=== PATIENT | female | born 1975 | race Caucasian/White ===

== ENCOUNTER 2022-06-18 12:33 | Inpatient (IN) | payer OTHER ==
[2022-06-18 13:44] LABS: Urine Blood 2+ (Negative); Urine Glucose Negative (Negative); Urine Protein Negative (Negative); Urine Specific Gravity 1.015 (1.005-1.030)
--- OUTSIDE RECORDS SUMMARY | 2022-06-18 14:01 | XMS REPORT | Continuity of Care Document ---
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 (test code = 3.37 x10 6/uL 3.54-5.02 L RBC) HEMOGLOBIN (test code = HGB) 9.7 g/dL 11.0-15.0 L HEMATOCRIT (test code = HCT) 31.0 % 33.0-45.0 L MEAN CELL VOLUME (test code = 92.0 fL 81.0-99.0 N MCV) MEAN CELL HGB (test code = MCH) 28.8 pg 27.0-33.0 N MEAN CELL HGB CONCETRATION 31.3 g/dL 33.0-37.0 L (test code = MCHC) RED CELL DISTRIBUTION WIDTH CV 16.9 % 11.5-14.5 H (test code = RDW) RED CELL DISTRIBUTION WIDTH SD 56.8 fL 37.0-54.0 H (test code = RDW-SD) PLATELET COUNT (test code = 205 x10 3/uL 150-400 N PLT) MEAN PLATELET VOLUME (test code 9.0 fL 7.0-9.0 N = MPV) NEUTROPHIL % (test code = NT%) 59.9 % 56.0-77.0 N IMMATURE GRANULOCYTE % (test 0.5 % 0.0-2.0 N code = IG%) LYMPHOCYTE % (test code = LY%) 33.6 % 14.0-32.0 H MONOCYTE % (test code = MO%) 5.7 % 4.8-9.0 N EOSINOPHIL % (test code = EO%) 0.3 % 0.3-3.7 N BASOPHIL % (test code = BA%) 0.0 % 0.0-2.0 N NUCLEATED RBC % (test code = 0.0 % 0-0 N NRBC%) NEUTROPHIL # (test code = NT#) 2.32 x10 3/uL 2.0-7.6 N IMMATURE GRANULOCYTE # (test 0.02 x10 3/uL 0.00-0.03 N code = IG#) LYMPHOCYTE # (test code = LY#) 1.30 x10 3/uL 1.0-3.8 N MONOCYTE # (test code = MO#) 0.22 x10 3/uL 0.1-0.8 N EOSINOPHIL # (test code = EO#) 0.01 x10 3/uL 0.0-0.2 N BASOPHIL # (test code = BA#) 0.00 x10 3/uL 0.0-0.2 N NUCLEATED RBC # (test code = 0.00 x10 3/uL 0.0-0.1 N NRBC#) MANUAL DIFF REQUIRED (test code NO = MDIFF) BASIC METABOLIC [id number] 07:32:00 Test Item Value Reference Range Interpretation Comments SODIUM (test code = NA) 129 mEq/L 134-147 L POTASSIUM (test code = 4.6 mEq/L 3.4-5.0 N K) CHLORIDE (test code = 98 mEq/L 100-108 L CL) CARBON DIOXIDE (test 24 mEq/L 21-33 N code = CO2) ANION GAP (test code = 12 0-20 N GAP) GLUCOSE (test code = 127 mg/dL 70-110 H GLU) BLOOD UREA NITROGEN 13 mg/dL 7-18 (test code = BUN) GLOMERULAR FILTRATION 92.2 95-105 L Units of measure = RATE (test code = GFR) ml/mi n/1.73 m2 CREATININE (test code = 0.7 mg/dL 0.6-1.3 N CREAT) CALCIUM (test code = 8.4 mg/dL 8.0-10.5 N CA) CBC W/AUTO [id number] 07:10:00 Test Item Value Reference Range Interpretation Comments WHITE BLOOD CELL (test code = 4.15 x10 3/uL 4.5-11.0 L WBC) RED BLOOD CELL (test code = 3.22 x10 6/uL 3.54-5.02 L RBC) HEMOGLOBIN (test code = HGB) 9.3 g/dL 11.0-15.0 L HEMATOCRIT (test code = HCT) 30.0 % 33.0-45.0 L MEAN CELL VOLUME (test code = 93.2 fL 81.0-99.0 N MCV) MEAN CELL HGB (test code = MCH) 28.9 pg 27.0-33.0 N MEAN CELL HGB CONCETRATION 31.0 g/dL 33.0-37.0 L (test code = MCHC) RED CELL DISTRIBUTION WIDTH CV 17.0 % 11.5-14.5 H (test code = RDW) RED CELL DISTRIBUTION WIDTH SD 58.3 fL 37.0-54.0 H (test code = RDW-SD) PLATELET COUNT (test code = 219 x10 3/uL 150-400 N PLT) MEAN PLATELET VOLUME (test code 8.9 fL 7.0-9.0 N = MPV) NEUTROPHIL % (test code = NT%) 56.5 % 56.0-77.0 N IMMATURE GRANULOCYTE % (test 0.5 % 0.0-2.0 N code = IG%) LYMPHOCYTE % (test code = LY%) 36.6 % 14.0-32.0 H MONOCYTE % (test code = MO%) 6.0 % 4.8-9.0 N EOSINOPHIL % (test code = EO%) 0.2 % 0.3-3.7 L BASOPHIL % (test code = BA%) 0.2 % 0.0-2.0 N NUCLEATED RBC % (test code = 0.0 % 0-0 N NRBC%) NEUTROPHIL # (test code = NT#) 2.34 x10 3/uL 2.0-7.6 N IMMATURE GRANULOCYTE # (test 0.02 x10 3/uL 0.00-0.03 N code = IG#) LYMPHOCYTE # (test code = LY#) 1.52 x10 3/uL 1.0-3.8 N MONOCYTE # (test code = MO#) 0.25 x10 3/uL 0.1-0.8 N EOSINOPHIL # (test code = EO#) 0.01 x10 3/uL 0.0-0.2 N BASOPHIL # (test code = BA#) 0.01 x10 3/uL 0.0-0.2 N NUCLEATED RBC # (test code = 0.00 x10 3/uL 0.0-0.1 N NRBC#) MANUAL DIFF REQUIRED (test code NO = MDIFF) VITAMIN [id number] 04:09:00 Test Item Value Reference Range Interpretation Comments VITAMIN 18.7 ug/L 2.0-32.8 This test was d eveloped and its B6/PYRIDOXINE performance (test code = characteristics determined by VITB6) [facility]. It has not been cleared orappro jackelyn by the Food and Drug Administration. Performed At: [facility] [place], [place] [id number] ra Leena PLASENCIA Ph:[phone] CBC W/AUTO [id number] 08:04:00 Test Item Value Reference Range Interpretation Comments WHITE BLOOD CELL (test code = 4.58 x10 3/uL 4.5-11.0 N WBC) RED BLOOD CELL (test code = 3.50 x10 6/uL 3.54-5.02 L RBC) HEMOGLOBIN (test code = HGB) 10.2 g/dL 11.0-15.0 L HEMATOCRIT (test code = HCT) 32.2 % 33.0-45.0 L MEAN CELL VOLUME (test code = 92.0 fL 81.0-99.0 N MCV) MEAN CELL HGB (test code = MCH) 29.1 pg 27.0-33.0 N MEAN CELL HGB CONCETRATION 31.7 g/dL 33.0-37.0 L (test code = MCHC) RED CELL DISTRIBUTION WIDTH CV 17.1 % 11.5-14.5 H (test code = RDW) RED CELL DISTRIBUTION WIDTH SD 57.3 fL 37.0-54.0 H (test code = RDW-SD) PLATELET COUNT (test code = 258 x10 3/uL 150-400 N PLT) MEAN PLATELET VOLUME (test code 8.8 fL 7.0-9.0 N = MPV) NEUTROPHIL % (test code = NT%) 56.9 % 56.0-77.0 N IMMATURE GRANULOCYTE % (test 0.4 % 0.0-2.0 N code = IG%) LYMPHOCYTE % (test code = LY%) 35.8 % 14.0-32.0 H MONOCYTE % (test code = MO%) 6.3 % 4.8-9.0 N EOSINOPHIL % (test code = EO%) 0.2 % 0.3-3.7 L BASOPHIL % (test code = BA%) 0.4 % 0.0-2.0 N NUCLEATED RBC % (test code = 0.0 % 0-0 N NRBC%) NEUTROPHIL # (test code = NT#) 2.60 x10 3/uL 2.0-7.6 N IMMATURE GRANULOCYTE # (test 0.02 x10 3/uL 0.00-0.03 N code = IG#) LYMPHOCYTE # (test code = LY#) 1.64 x10 3/uL 1.0-3.8 N MONOCYTE # (test code = MO#) 0.29 x10 3/uL 0.1-0.8 N EOSINOPHIL # (test code = EO#) 0.01 x10 3/uL 0.0-0.2 N BASOPHIL # (test code = BA#) 0.02 x10 3/uL 0.0-0.2 N NUCLEATED RBC # (test code = 0.00 x10 3/uL 0.0-0.1 N NRBC#) MANUAL DIFF REQUIRED (test code NO = MDIFF) BASIC METABOLIC [id number] 07:54:00 Test Item Value Reference Range Interpretation Comments SODIUM (test code = NA) 131 mEq/L 134-147 L POTASSIUM (test code = 4.6 mEq/L 3.4-5.0 N K) CHLORIDE (test code = 97 mEq/L 100-108 L CL) CARBON DIOXIDE (test 28 mEq/L 21-33 N code = CO2) ANION GAP (test code = 11 0-20 N GAP) GLUCOSE (test code = 118 mg/dL 70-110 H GLU) BLOOD UREA NITROGEN 7 mg/dL 7-18 N (test code = BUN) GLOMERULAR FILTRATION 110.2 95-105 H Units of measure = RATE (test code = GFR) ml/mi n/1.73 m2 CREATININE (test code = 0.6 mg/dL 0.6-1.3 N CREAT) CALCIUM (test code = 8.8 mg/dL 8.0-10.5 N CA) CBC W/AUTO [id number] 08:06:00 Test Item Value Reference Range Interpretation Comments WHITE BLOOD CELL (test code = 5.23 x10 3/uL 4.5-11.0 N WBC) RED BLOOD CELL (test code = 3.57 x10 6/uL 3.54-5.02 N RBC) HEMOGLOBIN (test code = HGB) 10.3 g/dL 11.0-15.0 L HEMATOCRIT (test code = HCT) 32.8 % 33.0-45.0 L MEAN CELL VOLUME (test code = 91.9 fL 81.0-99.0 N MCV) MEAN CELL HGB (test code = MCH) 28.9 pg 27.0-33.0 N MEAN CELL HGB CONCETRATION 31.4 g/dL 33.0-37.0 L (test code = MCHC) RED CELL DISTRIBUTION WIDTH CV 17.1 % 11.5-14.5 H (test code = RDW) RED CELL DISTRIBUTION WIDTH SD 57.9 fL 37.0-54.0 H (test code = RDW-SD) PLATELET COUNT (test code = 251 x10 3/uL 150-400 N PLT) MEAN PLATELET VOLUME (test code 9.2 fL 7.0-9.0 H = MPV) NEUTROPHIL % (test code = NT%) 54.9 % 56.0-77.0 L IMMATURE GRANULOCYTE % (test 0.2 % 0.0-2.0 N code = IG%) LYMPHOCYTE % (test code = LY%) 36.5 % 14.0-32.0 H MONOCYTE % (test code = MO%) 8.0 % 4.8-9.0 N EOSINOPHIL % (test code = EO%) 0.0 % 0.3-3.7 L BASOPHIL % (test code = BA%) 0.4 % 0.0-2.0 N NUCLEATED RBC % (test code = 0.0 % 0-0 N NRBC%) NEUTROPHIL # (test code = NT#) 2.87 x10 3/uL 2.0-7.6 N IMMATURE GRANULOCYTE # (test 0.01 x10 3/uL 0.00-0.03 N code = IG#) LYMPHOCYTE # (test code = LY#) 1.91 x10 3/uL 1.0-3.8 N MONOCYTE # (test code = MO#) 0.42 x10 3/uL 0.1-0.8 N EOSINOPHIL # (test code = EO#) 0.00 x10 3/uL 0.0-0.2 N BASOPHIL # (test code = BA#) 0.02 x10 3/uL 0.0-0.2 N NUCLEATED RBC # (test code = 0.00 x10 3/uL 0.0-0.1 N NRBC#) MANUAL DIFF REQUIRED (test code NO = MDIFF) BASIC METABOLIC [id number] 07:57:00 Test Item Value Reference Range Interpretation Comments SODIUM (test code = NA) 129 mEq/L 134-147 L POTASSIUM (test code = 4.9 mEq/L 3.4-5.0 N K) CHLORIDE (test code = 95 mEq/L 100-108 L CL) CARBON DIOXIDE (test 27 mEq/L 21-33 N code = CO2) ANION GAP (test code = 12 0-20 N GAP) GLUCOSE (test code = 117 mg/dL 70-110 H GLU) BLOOD UREA NITROGEN 7 mg/dL 7-18 (test code = BUN) GLOMERULAR FILTRATION 110.2 95-105 H Units of measure = RATE (test code = GFR) ml/mi n/1.73 m2 CREATININE (test code = 0.6 mg/dL 0.6-1.3 N CREAT) CALCIUM (test code = 8.9 mg/dL 8.0-10.5 N CA) CBC W/AUTO [id number] 09:46:00 Test Item Value Reference Range Interpretation Comments WHITE BLOOD CELL (test code = 4.26 x10 3/uL 4.5-11.0 L WBC) RED BLOOD CELL (test code = 3.59 x10 6/uL 3.54-5.02 N RBC) HEMOGLOBIN (test code = HGB) 10.4 g/dL 11.0-15.0 L HEMATOCRIT (test code = HCT) 33.0 % 33.0-45.0 N MEAN CELL VOLUME (test code = 91.9 fL 81.0-99.0 N MCV) MEAN CELL HGB (test code = MCH) 29.0 pg 27.0-33.0 N MEAN CELL HGB CONCETRATION 31.5 g/dL 33.0-37.0 L (test code = MCHC) RED CELL DISTRIBUTION WIDTH CV 17.2 % 11.5-14.5 H (test code = RDW) RED CELL DISTRIBUTION WIDTH SD 58.4 fL 37.0-54.0 H (test code = RDW-SD) PLATELET COUNT (test code = 222 x10 3/uL 150-400 N PLT) MEAN PLATELET VOLUME (test code 8.9 fL 7.0-9.0 N = MPV) NEUTROPHIL % (test code = NT%) 47.0 % 56.0-77.0 L IMMATURE GRANULOCYTE % (test 0.9 % 0.0-2.0 N code = IG%) LYMPHOCYTE % (test code = LY%) 38.3 % 14.0-32.0 H MONOCYTE % (test code = MO%) 11.7 % 4.8-9.0 H EOSINOPHIL % (test code = EO%) 1.6 % 0.3-3.7 N BASOPHIL % (test code = BA%) 0.5 % 0.0-2.0 N NUCLEATED RBC % (test code = 0.0 % 0-0 N NRBC%) NEUTROPHIL # (test code = NT#) 2.00 x10 3/uL 2.0-7.6 N IMMATURE GRANULOCYTE # (test 0.04 x10 3/uL 0.00-0.03 H code = IG#) LYMPHOCYTE # (test code = LY#) 1.63 x10 3/uL 1.0-3.8 N MONOCYTE # (test code = MO#) 0.50 x10 3/uL 0.1-0.8 N EOSINOPHIL # (test code = EO#) 0.07 x10 3/uL 0.0-0.2 N BASOPHIL # (test code = BA#) 0.02 x10 3/uL 0.0-0.2 N NUCLEATED RBC # (test code = 0.00 x10 3/uL 0.0-0.1 N NRBC#) MANUAL DIFF REQUIRED (test code NO = MDIFF) BASIC METABOLIC [id number] 08:25:00 Test Item Value Reference Range Interpretation Comments SODIUM (test code = NA) 127 mEq/L 134-147 L POTASSIUM (test code = 4.2 mEq/L 3.4-5.0 N K) CHLORIDE (test code = 96 mEq/L 100-108 L CL) CARBON DIOXIDE (test 23 mEq/L 21-33 N code = CO2) ANION GAP (test code = 12 0-20 N GAP) GLUCOSE (test code = 77 mg/dL 70-110 N GLU) BLOOD UREA NITROGEN 4 mg/dL 7-18 L (test code = BUN) GLOMERULAR FILTRATION 110.2 95-105 H Units of measure = RATE (test code = GFR) ml/mi n/1.73 m2 CREATININE (test code = 0.6 mg/dL 0.6-1.3 N CREAT) CALCIUM (test code = 8.5 mg/dL 8.0-10.5 N CA) CBC W/AUTO [id number] 08:14:00 Test Item Value Reference Range Interpretation Comments WHITE BLOOD CELL (test code = 5.30 x10 3/uL 4.5-11.0 N WBC) RED BLOOD CELL (test code = 3.47 x10 6/uL 3.54-5.02 L RBC) HEMOGLOBIN (test code = HGB) 10.0 g/dL 11.0-15.0 L HEMATOCRIT (test code = HCT) 32.2 % 33.0-45.0 L MEAN CELL VOLUME (test code = 92.8 fL 81.0-99.0 N MCV) MEAN CELL HGB (test code = MCH) 28.8 pg 27.0-33.0 N MEAN CELL HGB CONCETRATION 31.1 g/dL 33.0-37.0 L (test code = MCHC) RED CELL DISTRIBUTION WIDTH CV 17.8 % 11.5-14.5 H (test code = RDW) RED CELL DISTRIBUTION WIDTH SD 60.1 fL 37.0-54.0 H (test code = RDW-SD) PLATELET COUNT (test code = 230 x10 3/uL 150-400 N PLT) MEAN PLATELET VOLUME (test code 9.0 fL 7.0-9.0 N = MPV) NEUTROPHIL % (test code = NT%) 42.0 % 56.0-77.0 L IMMATURE GRANULOCYTE % (test 0.4 % 0.0-2.0 N code = IG%) LYMPHOCYTE % (test code = LY%) 42.3 % 14.0-32.0 H MONOCYTE % (test code = MO%) 13.6 % 4.8-9.0 H EOSINOPHIL % (test code = EO%) 1.1 % 0.3-3.7 N BASOPHIL % (test code = BA%) 0.6 % 0.0-2.0 N NUCLEATED RBC % (test code = 0.0 % 0-0 N NRBC%) NEUTROPHIL # (test code = NT#) 2.23 x10 3/uL 2.0-7.6 N IMMATURE GRANULOCYTE # (test 0.02 x10 3/uL 0.00-0.03 N code = IG#) LYMPHOCYTE # (test code = LY#) 2.24 x10 3/uL 1.0-3.8 N MONOCYTE # (test code = MO#) 0.72 x10 3/uL 0.1-0.8 N EOSINOPHIL # (test code = EO#) 0.06 x10 3/uL 0.0-0.2 N BASOPHIL # (test code = BA#) 0.03 x10 3/uL 0.0-0.2 N NUCLEATED RBC # (test code = 0.00 x10 3/uL 0.0-0.1 N NRBC#) MANUAL DIFF REQUIRED (test code NO = MDIFF) BASIC METABOLIC [id number] 08:10:00 Test Item Value Reference Range Interpretation Comments SODIUM (test code = NA) 128 mEq/L 134-147 L POTASSIUM (test code = 4.3 mEq/L 3.4-5.0 N K) CHLORIDE (test code = 94 mEq/L 100-108 L CL) CARBON DIOXIDE (test 29 mEq/L 21-33 N code = CO2) ANION GAP (test code = 9 0-20 N GAP) GLUCOSE (test code = 92 mg/dL 70-110 N GLU) BLOOD UREA NITROGEN 6 mg/dL 7-18 L (test code = BUN) GLOMERULAR FILTRATION 110.2 95-105 H Units of measure = RATE (test code = GFR) ml/mi n/1.73 m2 CREATININE (test code = 0.6 mg/dL 0.6-1.3 N CREAT) CALCIUM (test code = 8.7 mg/dL 8.0-10.5 N CA) URIC [id number] 15:10:00 Test Item Value Reference Range Interpretation Comments URIC ACID (test code = URIC) 3.8 mg/dL 2.6-7.2 N [id number] 15:10:00 Test Item Value Reference Range Interpretation Comments MAGNESIUM (test code = MAG) 2.10 mg/dL 1.8-2.4 N SERUM [id number] 15:10:00 Test Item Value Reference Range Interpretation Comments SERUM IRON (test code = IRON) 92 mcg/dL 35-150 N VITAMIN [id number] 15:10:00 Test Item Value Reference Range Interpretation Comments VITAMIN B12 (test code = VITB12) 1042 pg/mL 193-986 H THYROID STIMULATING [id number] 15:10:00 Test Item Value Reference Range Interpretation Comments THYROID STIMULATING 0.81 0.42-5.47 N Results in HORMONE (test code = TSH) mi lli-International Units/mL VALPROIC ACID (DEPAKENE)[id number] 15:10:00 Test Item Value Reference Range Interpretation Comments VALPROIC ACID (DEPAKENE) (test code 31 mcg/mL 50.0-100.0 L = VALP) VITAMIN [id number] 15:10:00 Test Item Value Reference Range Interpretation Comments VITAMIN A 44.8 ug/dL 20.1-62.0 Reference inter vals for vitamin (test code = A determined fr om MICHELLE) [facility]. Individuals wit h vitamin A less than 20ug/dL ar e considered vitamin A defic ient and those withserum octavia ntrations less than 10 ug/dL a re consideredsever kesha deficient.This test was developed and i ts performance characteristics determined by [employer]. It has not been cleared orappro jackelyn by the Food and Drug Administration. Performed At: [facility] [address] [place], [place] [id number] ra Leena PLASENCIA Ph:[phone] SURGICAL [id number] 10:02:00 RUN DATE: 12/02/18 [place] [facility] *LIVE* PAGE 1 RUN TIME: 1002 Specimen Inquiry RUN USER: INTERFACE --------- ---PATIENT: EVA ARGUETA LOC: MARIANNA U #: [id number] AGE/SX: 43/F ROOM: [facility] [id number]/[id number] DR: Mikael Borden MD : 77 BED: 1 DIS: STATUS: ADM IN TLOC: SPEC #: [id number] RECD: 11/30/18 STATUS: SOUGustabo REQ #: [id number] ROBERT: 11/30/[address] [facility] [address]: Mikael Borden MD ENTERED: 12/02/18 SP TYPE: SURG SPEC OTHR DR: Self Referred Maximiliano Mccabe MD, Jyoti MD Undefined Provider Fredi Barnes MDORDERED: GM LEVEL 4 CODES: [id number] - RECTUM, NOS COPIES TO: Self Referred Maximiliano Mccabe MD [address] [place] [id number] Mikael Borden MD [address] [id number] Magda Walker MD [address] [address] Undefined Provider Fredi Barnes MD [address] [facility] [address] [place], [place] [address] PROCEDURES: GM LEVEL 4 (Incomplete) TISSUES: 1. RECTUM, NOS - Rectum, bx. FINAL DIAGNOSIS Rectum, bx.: Mild acute and chronic proctitis. CONTINUED ON NEXT PAGE RUN DATE: 12/02/18 [place] [facility] *LIVE* PAGE 2 RUN TIME: 1001 Specimen Inquiry RUN USER:INTERFACE SPEC #: [id number] PATIENT: EVA ARGUETA #[id number] (Continued) GROSS AND MICROSCOPIC GROSS EXAMINATION: Received is/are the specimen/s designated with the appropriate dimensions and block designation: 1. Rectum, bx.: 4 segments of pink-askew tissue, measuring up to 0.3 cm. in greatest dimension each. MICROSCOPIC EXAMINATION: Sections reveal mild acute and chronic inflammation and reactive changes. No definite dysplasia or malignancy seen. POST-OP DIAGNOSIS Radiation proctitis, R/O radiation proctitis PRE-OP DIAGNOSIS Rectal bleed Signed SIGNATURE ON FILE Kelsey Waldron MD 12/02/18 1002 END OF REPORT BASIC METABOLIC [id number] 08:58:00 Test Item Value Reference Range Interpretation Comments SODIUM (test code = NA) 130 mEq/L 134-147 L POTASSIUM (test code = 4.0 mEq/L 3.4-5.0 N K) CHLORIDE (test code = 95 mEq/L 100-108 L CL) CARBON DIOXIDE (test 30 mEq/L 21-33 N code = CO2) ANION GAP (test code = 9 0-20 N GAP) GLUCOSE (test code = 85 mg/dL 70-110 N GLU) BLOOD UREA NITROGEN 5 mg/dL 7-18 L (test code = BUN) GLOMERULAR FILTRATION 110.2 95-105 H Units of measure = RATE (test code = GFR) ml/mi n/1.73 m2 CREATININE (test code = 0.6 mg/dL 0.6-1.3 N CREAT) CALCIUM (test code = 8.6 mg/dL 8.0-10.5 N CA) CBC W/AUTO [id number] 08:00:00 Test Item Value Reference Range Interpretation Comments WHITE BLOOD CELL (test code = 4.83 x10 3/uL 4.5-11.0 N WBC) RED BLOOD CELL (test code = 3.27 x10 6/uL 3.54-5.02 L RBC) HEMOGLOBIN (test code = HGB) 9.5 g/dL 11.0-15.0 L HEMATOCRIT (test code = HCT) 30.5 % 33.0-45.0 L MEAN CELL VOLUME (test code = 93.3 fL 81.0-99.0 N MCV) MEAN CELL HGB (test code = MCH) 29.1 pg 27.0-33.0 N MEAN CELL HGB CONCETRATION 31.1 g/dL 33.0-37.0 L (test code = MCHC) RED CELL DISTRIBUTION WIDTH CV 18.1 % 11.5-14.5 H (test code = RDW) RED CELL DISTRIBUTION WIDTH SD 61.7 fL 37.0-54.0 H (test code = RDW-SD) PLATELET COUNT (test code = 226 x10 3/uL 150-400 N PLT) MEAN PLATELET VOLUME (test code 8.8 fL 7.0-9.0 N = MPV) NEUTROPHIL % (test code = NT%) 39.8 % 56.0-77.0 L IMMATURE GRANULOCYTE % (test 0.6 % 0.0-2.0 N code = IG%) LYMPHOCYTE % (test code = LY%) 44.3 % 14.0-32.0 H MONOCYTE % (test code = MO%) 13.3 % 4.8-9.0 H EOSINOPHIL % (test code = EO%) 1.4 % 0.3-3.7 N BASOPHIL % (test code = BA%) 0.6 % 0.0-2.0 N NUCLEATED RBC % (test code = 0.0 % 0-0 N NRBC%) NEUTROPHIL # (test code = NT#) 1.92 x10 3/uL 2.0-7.6 L IMMATURE GRANULOCYTE # (test 0.03 x10 3/uL 0.00-0.03 N code = IG#) LYMPHOCYTE # (test code = LY#) 2.14 x10 3/uL 1.0-3.8 N MONOCYTE # (test code = MO#) 0.64 x10 3/uL 0.1-0.8 N EOSINOPHIL # (test code = EO#) 0.07 x10 3/uL 0.0-0.2 N BASOPHIL # (test code = BA#) 0.03 x10 3/uL 0.0-0.2 N NUCLEATED RBC # (test code = 0.00 x10 3/uL 0.0-0.1 N NRBC#) MANUAL DIFF REQUIRED (test code NO = MDIFF) PROTEIN ELECTROPHORESIS [id number] 15:18:00 Test Item Value Reference Range Interpretation Comments TOTAL PROTEIN 6.1 g/dL 6.0-8.5 (test code = PROTE) ALBUMIN (test 2.7 g/dL 2.9-4.4 A code = ALBE) [id number]-[id number] 0.3 g/dL 0.0-0.4 (test code = A1G) STPWK-0-XLVKZYTY 0.9 g/dL 0.4-1.0 (test code = A2G) BETA GLOBULIN 0.8 g/dL 0.7-1.3 (test code = BG) GAMMA GLOBULIN 1.4 g/dL 0.4-1.8 (test code = GG) M-SPIKE,SERUM Not Observed g/dL Not Observed (test code = MSPIKES) GLOBULIN ELECT 3.4 g/dL 2.2-3.9 (test code = GLOBE) ALBUMIN/GLOBULIN 0.8 0.7-1.7 RATIO (test code = AGE) PROT.ELECTROPH.IN () The SPE pa ttern TERPRETATION reflects (test code = hypoalbuminemia . ELEINT) Evidence ofmonoclonal pr otein is not apparent.Perfor med At: [facility] [id number] [place], [place] [id number] Elijah Black MD Ph:[phone] rform ed At: [facility] [id number] [facility] [address] [place] [place], [place] [id number] h CN MD Ph:[phone] LACTIC DEHYDROGENASE(LDH)2018-12-01 15:18:00 Test Item Value Reference Range Interpretation Comments LACTIC DEHYDROGENASE(LDH) (test 207 IUnits/L 84-246 N code = LDH) TOTAL IRON BINDING [id number] 15:18:00 Test Item Value Reference Range Interpretation Comments SERUM IRON (test code = IRON) 28 mcg/dL 35-150 L TOTAL IRON BINDING CAPACITY (test 198 mcg/dL 260-445 L code = TIBC) UIBC (test code = UIBC) 170 mcg/dL IRON SATURATION (test code = 14.1 % 14-34 N FESAT) [id number] 15:18:00 Test Item Value Reference Range Interpretation Comments FERRITIN (test code = MARVA) 166.2 ng/mL 11.0-306.8 N VITAMIN D 1,77-[id number] 12:13:00 Test Item Value Reference Range Interpretation Comments VITAMIN D 51.3 pg/mL 19.9-79.3 Performed At: B N 1,25-DIHYDROXY (test [facility] [id number] code = [id number]) [place] [id number] sg Stern MD Ph:[phone] CBC W/AUTO [id number] 08:13:00 Test Item Value Reference Range Interpretation Comments WHITE BLOOD CELL (test code = 5.12 x10 3/uL 4.5-11.0 N WBC) RED BLOOD CELL (test code = 3.13 x10 6/uL 3.54-5.02 L RBC) HEMOGLOBIN (test code = HGB) 9.3 g/dL 11.0-15.0 L HEMATOCRIT (test code = HCT) 28.4 % 33.0-45.0 L MEAN CELL VOLUME (test code = 90.7 fL 81.0-99.0 MCV) MEAN CELL HGB (test code = MCH) 29.7 pg 27.0-33.0 N MEAN CELL HGB CONCETRATION 32.7 g/dL 33.0-37.0 L (test code = MCHC) RED CELL DISTRIBUTION WIDTH CV 18.6 % 11.5-14.5 H (test code = RDW) RED CELL DISTRIBUTION WIDTH SD 60.4 fL 37.0-54.0 H (test code = RDW-SD) PLATELET COUNT (test code = 224 x10 3/uL 150-400 N PLT) MEAN PLATELET VOLUME (test code 8.8 fL 7.0-9.0 N = MPV) NEUTROPHIL % (test code = NT%) 42.9 % 56.0-77.0 L IMMATURE GRANULOCYTE % (test 0.6 % 0.0-2.0 N code = IG%) LYMPHOCYTE % (test code = LY%) 41.4 % 14.0-32.0 H MONOCYTE % (test code = MO%) 13.3 % 4.8-9.0 H EOSINOPHIL % (test code = EO%) 1.2 % 0.3-3.7 N BASOPHIL % (test code = BA%) 0.6 % 0.0-2.0 N NUCLEATED RBC % (test code = 0.0 % 0-0 N NRBC%) NEUTROPHIL # (test code = NT#) 2.20 x10 3/uL 2.0-7.6 N IMMATURE GRANULOCYTE # (test 0.03 x10 3/uL 0.00-0.03 N code = IG#) LYMPHOCYTE # (test code = LY#) 2.12 x10 3/uL 1.0-3.8 N MONOCYTE # (test code = MO#) 0.68 x10 3/uL 0.1-0.8 N EOSINOPHIL # (test code = EO#) 0.06 x10 3/uL 0.0-0.2 N BASOPHIL # (test code = BA#) 0.03 x10 3/uL 0.0-0.2 N NUCLEATED RBC # (test code = 0.00 x10 3/uL 0.0-0.1 N NRBC#) MANUAL DIFF REQUIRED (test code NO = MDIFF) BASIC METABOLIC [id number] 07:50:00 Test Item Value Reference Range Interpretation Comments SODIUM (test code = NA) 133 mEq/L 134-147 L POTASSIUM (test code = 3.8 mEq/L 3.4-5.0 N K) CHLORIDE (test code = 97 mEq/L 100-108 L CL) CARBON DIOXIDE (test 29 mEq/L 21-33 N code = CO2) ANION GAP (test code = 11 0-20 N GAP) GLUCOSE (test code = 85 mg/dL 70-110 N GLU) BLOOD UREA NITROGEN 4 mg/dL 7-18 L (test code = BUN) GLOMERULAR FILTRATION 110.2 95-105 H Units of measure = RATE (test code = GFR) ml/mi n/1.73 m2 CREATININE (test code = 0.6 mg/dL 0.6-1.3 N CREAT) CALCIUM (test code = 8.3 mg/dL 8.0-10.5 N CA) BASIC METABOLIC [id number] 07:49:00 Test Item Value Reference Range Interpretation Comments SODIUM (test code = NA) 133 mEq/L 134-147 L POTASSIUM (test code = 3.9 mEq/L 3.4-5.0 N K) CHLORIDE (test code = 98 mEq/L 100-108 L CL) CARBON DIOXIDE (test 30 mEq/L 21-33 N code = CO2) ANION GAP (test code = 9 0-20 N GAP) GLUCOSE (test code = 98 mg/dL 70-110 N GLU) BLOOD UREA NITROGEN 5 mg/dL 7-18 L (test code = BUN) GLOMERULAR FILTRATION 110.2 95-105 H Units of measure = RATE (test code = GFR) ml/mi n/1.73 m2 CREATININE (test code = 0.6 mg/dL 0.6-1.3 N CREAT) CALCIUM (test code = 8.1 mg/dL 8.0-10.5 N CA) CBC W/AUTO [id number] 07:29:00 Test Item Value Reference Range Interpretation Comments WHITE BLOOD CELL (test code = 4.35 x10 3/uL 4.5-11.0 L WBC) RED BLOOD CELL (test code = 2.38 x10 6/uL 3.54-5.02 L RBC) HEMOGLOBIN (test code = HGB) 7.0 g/dL 11.0-15.0 L HEMATOCRIT (test code = HCT) 22.4 % 33.0-45.0 L MEAN CELL VOLUME (test code = 94.1 fL 81.0-99.0 N MCV) MEAN CELL HGB (test code = MCH) 29.4 pg 27.0-33.0 N MEAN CELL HGB CONCETRATION 31.3 g/dL 33.0-37.0 L (test code = MCHC) RED CELL DISTRIBUTION WIDTH CV 17.5 % 11.5-14.5 H (test code = RDW) RED CELL DISTRIBUTION WIDTH SD 59.4 fL 37.0-54.0 H (test code = RDW-SD) PLATELET COUNT (test code = 213 x10 3/uL 150-400 N PLT) MEAN PLATELET VOLUME (test code 8.7 fL 7.0-9.0 N = MPV) NEUTROPHIL % (test code = NT%) 46.4 % 56.0-77.0 L IMMATURE GRANULOCYTE % (test 0.2 % 0.0-2.0 N code = IG%) LYMPHOCYTE % (test code = LY%) 39.8 % 14.0-32.0 H MONOCYTE % (test code = MO%) 12.2 % 4.8-9.0 H EOSINOPHIL % (test code = EO%) 0.9 % 0.3-3.7 N BASOPHIL % (test code = BA%) 0.5 % 0.0-2.0 N NUCLEATED RBC % (test code = 0.0 % 0-0 N NRBC%) NEUTROPHIL # (test code = NT#) 2.02 x10 3/uL 2.0-7.6 N IMMATURE GRANULOCYTE # (test 0.01 x10 3/uL 0.00-0.03 N code = IG#) LYMPHOCYTE # (test code = LY#) 1.73 x10 3/uL 1.0-3.8 N MONOCYTE # (test code = MO#) 0.53 x10 3/uL 0.1-0.8 N EOSINOPHIL # (test code = EO#) 0.04 x10 3/uL 0.0-0.2 N BASOPHIL # (test code = BA#) 0.02 x10 3/uL 0.0-0.2 N NUCLEATED RBC # (test code = 0.00 x10 3/uL 0.0-0.1 N NRBC#) MANUAL DIFF REQUIRED (test code NO = MDIFF) [id number] 07:27:00 Test Item Value Reference Range Interpretation Comments HAPTOGLOBIN (test code 192 mg/dL 34-200 Perfo rmed At: BN = HAPT) [facility] [id number] [place] PLASENCIA Ph:[phone] BASIC METABOLIC [id number] 08:41:00 Test Item Value Reference Range Interpretation Comments SODIUM (test code = NA) 134 mEq/L 134-147 N POTASSIUM (test code = 3.6 mEq/L 3.4-5.0 N K) CHLORIDE (test code = 99 mEq/L 100-108 L CL) CARBON DIOXIDE (test 24 mEq/L 21-33 N code = CO2) ANION GAP (test code = 15 0-20 N GAP) GLUCOSE (test code = 106 mg/dL 70-110 N GLU) BLOOD UREA NITROGEN 5 mg/dL 7-18 L (test code = BUN) GLOMERULAR FILTRATION 136.0 95-105 H Units of measure = RATE (test code = GFR) ml/mi n/1.73 m2 CREATININE (test code = 0.5 mg/dL 0.6-1.3 L CREAT) CALCIUM (test code = 8.1 mg/dL 8.0-10.5 N CA) CBC W/AUTO [id number] 08:07:00 Test Item Value Reference Range Interpretation Comments WHITE BLOOD CELL (test code = 5.75 x10 3/uL 4.5-11.0 N WBC) RED BLOOD CELL (test code = 2.56 x10 6/uL 3.54-5.02 L RBC) HEMOGLOBIN (test code = HGB) 7.4 g/dL 11.0-15.0 L HEMATOCRIT (test code = HCT) 23.8 % 33.0-45.0 L MEAN CELL VOLUME (test code = 93.0 fL 81.0-99.0 N MCV) MEAN CELL HGB (test code = MCH) 28.9 pg 27.0-33.0 N MEAN CELL HGB CONCETRATION 31.1 g/dL 33.0-37.0 L (test code = MCHC) RED CELL DISTRIBUTION WIDTH CV 17.2 % 11.5-14.5 H (test code = RDW) RED CELL DISTRIBUTION WIDTH SD 58.9 fL 37.0-54.0 H (test code = RDW-SD) PLATELET COUNT (test code = 252 x10 3/uL 150-400 N PLT) MEAN PLATELET VOLUME (test code 8.9 fL 7.0-9.0 N = MPV) NEUTROPHIL % (test code = NT%) 59.5 % 56.0-77.0 N IMMATURE GRANULOCYTE % (test 0.3 % 0.0-2.0 N code = IG%) LYMPHOCYTE % (test code = LY%) 29.6 % 14.0-32.0 N MONOCYTE % (test code = MO%) 10.4 % 4.8-9.0 H EOSINOPHIL % (test code = EO%) 0.0 % 0.3-3.7 L BASOPHIL % (test code = BA%) 0.2 % 0.0-2.0 N NUCLEATED RBC % (test code = 0.0 % 0-0 N NRBC%) NEUTROPHIL # (test code = NT#) 3.42 x10 3/uL 2.0-7.6 N IMMATURE GRANULOCYTE # (test 0.02 x10 3/uL 0.00-0.03 N code = IG#) LYMPHOCYTE # (test code = LY#) 1.70 x10 3/uL 1.0-3.8 N MONOCYTE # (test code = MO#) 0.60 x10 3/uL 0.1-0.8 N EOSINOPHIL # (test code = EO#) 0.00 x10 3/uL 0.0-0.2 N BASOPHIL # (test code = BA#) 0.01 x10 3/uL 0.0-0.2 N NUCLEATED RBC # (test code = 0.00 x10 3/uL 0.0-0.1 N NRBC#) MANUAL DIFF REQUIRED (test code NO = MDIFF) UA CULT [id number] 15:35:00 Test Item Value Reference Range Interpretation Comments UA WBC (test code 4-9 WBC/HPF 0-3 A = WBCU) UA SQUAMOUS CELLS 0-5 /HPF NONE SEEN (test code = SQU) UA CULTURE NEEDED? NO, WBC<10 Culture Chk Criteria not met, (test code = Criteria Urine Culture UACULT) cancelled. URIC [id number] 15:28:00 Test Item Value Reference Range Interpretation Comments URIC ACID (test code = URIC) 3.8 mg/dL 2.6-7.2 N [id number] 15:28:00 Test Item Value Reference Range Interpretation Comments MAGNESIUM (test code = MAG) 2.10 mg/dL 1.8-2.4 N SERUM [id number] 15:28:00 Test Item Value Reference Range Interpretation Comments SERUM IRON (test code = IRON) 92 mcg/dL 35-150 N VITAMIN [id number] 15:28:00 Test Item Value Reference Range Interpretation Comments VITAMIN B12 (test code = VITB12) 1042 pg/mL 193-986 H THYROID STIMULATING [id number] 15:28:00 Test Item Value Reference Range Interpretation Comments THYROID STIMULATING 0.81 0.42-5.47 N Results in HORMONE (test code = TSH) mi lli-International Units/mL VALPROIC ACID (DEPAKENE)2018-11-28 15:28:00 Test Item Value Reference Range Interpretation Comments VALPROIC ACID (DEPAKENE) (test code 31 mcg/mL 50.0-100.0 L = VALP) VITAMIN [id number] 15:28:00 Test Item Value Reference Range Interpretation Comments VITAMIN A (test code = MICHELLE) HGBA1C%2018-11-28 15:13:00 Test Item Value Reference Range Interpretation Comments HGBA1C% (test code = HGBA1C%) < 3.5 %A1C 4.8-6.0 L HGB [id number] 14:43:00 Test Item Value Reference Range Interpretation Comments HEMOGLOBIN (test code = HGB) 7.8 g/dL 11.0-15.0 L HEMATOCRIT (test code = HCT) 26.0 % 33.0-45.0 L HCG SERUM [id number] 08:47:00 Test Item Value Reference Range Interpretation Comments HCG SERUM QUAL (test code = SERUM NEGATIVE NEGATIVE HCGQL) CBC W/AUTO [id number] 08:40:00 Test Item Value Reference Range Interpretation Comments WHITE BLOOD CELL (test code = 5.19 x10 3/uL 4.5-11.0 N WBC) RED BLOOD CELL (test code = 2.63 x10 6/uL 3.54-5.02 L RBC) HEMOGLOBIN (test code = HGB) 7.7 g/dL 11.0-15.0 L HEMATOCRIT (test code = HCT) 24.8 % 33.0-45.0 L MEAN CELL VOLUME (test code = 94.3 fL 81.0-99.0 N MCV) MEAN CELL HGB (test code = MCH) 29.3 pg 27.0-33.0 N MEAN CELL HGB CONCETRATION 31.0 g/dL 33.0-37.0 L (test code = MCHC) RED CELL DISTRIBUTION WIDTH CV 17.7 % 11.5-14.5 H (test code = RDW) RED CELL DISTRIBUTION WIDTH SD 61.3 fL 37.0-54.0 H (test code = RDW-SD) PLATELET COUNT (test code = 234 x10 3/uL 150-400 N PLT) MEAN PLATELET VOLUME (test code 8.8 fL 7.0-9.0 N = MPV) NEUTROPHIL % (test code = NT%) 49.9 % 56.0-77.0 L IMMATURE GRANULOCYTE % (test 0.4 % 0.0-2.0 N code = IG%) LYMPHOCYTE % (test code = LY%) 36.4 % 14.0-32.0 H MONOCYTE % (test code = MO%) 12.5 % 4.8-9.0 H EOSINOPHIL % (test code = EO%) 0.4 % 0.3-3.7 N BASOPHIL % (test code = BA%) 0.4 % 0.0-2.0 N NUCLEATED RBC % (test code = 0.0 % 0-0 N NRBC%) NEUTROPHIL # (test code = NT#) 2.59 x10 3/uL 2.0-7.6 N IMMATURE GRANULOCYTE # (test 0.02 x10 3/uL 0.00-0.03 N code = IG#) LYMPHOCYTE # (test code = LY#) 1.89 x10 3/uL 1.0-3.8 N MONOCYTE # (test code = MO#) 0.65 x10 3/uL 0.1-0.8 N EOSINOPHIL # (test code = EO#) 0.02 x10 3/uL 0.0-0.2 N BASOPHIL # (test code = BA#) 0.02 x10 3/uL 0.0-0.2 N NUCLEATED RBC # (test code = 0.00 x10 3/uL 0.0-0.1 N NRBC#) MANUAL DIFF REQUIRED (test code NO = MDIFF) RETIC COUNT (AUTOMATED)2018-11-28 08:40:00 Test Item Value Reference Range Interpretation Comments RETIC COUNT (AUTOMATED) (test code = 5.0 % 0.3-2.3 H RETICA) COMPREHENSIVE METABOLIC [id number] 08:24:00 Test Item Value Reference Range Interpretation Comments SODIUM (test code = NA) 135 mEq/L 134-147 N POTASSIUM (test code = 3.9 mEq/L 3.4-5.0 N K) CHLORIDE (test code = 101 mEq/L 100-108 N CL) CARBON DIOXIDE (test 29 mEq/L 21-33 N code = CO2) ANION GAP (test code = 9 0-20 N GAP) GLUCOSE (test code = 105 mg/dL 70-110 N GLU) BLOOD UREA NITROGEN 3 mg/dL 7-18 L (test code = BUN) GLOMERULAR FILTRATION 110.2 95-105 H Units of measure = RATE (test code = GFR) ml/mi n/1.73 m2 CREATININE (test code = 0.6 mg/dL 0.6-1.3 N CREAT) TOTAL PROTEIN (test 6.8 g/dL 6.4-8.2 N code = PROT) ALBUMIN (test code = 2.90 g/dL 3.4-5.0 L ALB) CALCIUM (test code = 8.4 mg/dL 8.0-10.5 N CA) BILIRUBIN TOTAL (test 0.20 mg/dL 0.0-1.0 N code = BILT) SGOT/AST (test code = 19 IUnit/L 15-37 N AST) SGPT/ALT (test code = 31 IUnit/L 15-65 N ALT) ALKALINE PHOSPHATASE 66 IUnit/L 20-125 N TOTAL (test code = ALKP) PROTEIN ELECTROPHORESIS [id number] 08:18:00 Test Item Value Reference Range Interpretation Comments TOTAL PROTEIN (test code = PROTE) ALBUMIN (test code = ALBE) [id number] (test code = A1G) [id number] (test code = A2G) BETA GLOBULIN (test code = BG) GAMMA GLOBULIN (test code = GG) M-SPIKE,SERUM (test code = MSPIKES) GLOBULIN ELECT (test code = GLOBE) ALBUMIN/GLOBULIN RATIO (test code = AGE) PROT.ELECTROPH.INTERPRETATION (test code = ELEINT) LACTIC DEHYDROGENASE(LDH)2018-11-28 08:18:00 Test Item Value Reference Range Interpretation Comments LACTIC DEHYDROGENASE(LDH) (test 207 IUnits/L 84-246 N code = LDH) TOTAL IRON BINDING [id number] 08:18:00 Test Item Value Reference Range Interpretation Comments SERUM IRON (test code = IRON) 28 mcg/dL 35-150 L TOTAL IRON BINDING CAPACITY (test 198 mcg/dL 260-445 L code = TIBC) UIBC (test code = UIBC) 170 mcg/dL IRON SATURATION (test code = 14.1 % 14-34 N FESAT) [id number] 08:18:00 Test Item Value Reference Range Interpretation Comments FERRITIN (test code = MARVA) 166.2 ng/mL 11.0-306.8 N THROMBOPLASTIN TIME [id number] 06:17:00 Test Item Value Reference Range Interpretation Comments THROMBOPLASTIN TIME 28.9 Seconds 25.0-39.5 N Therape utic Range: PARTIAL (test code = 61.8-83 .8 Sec PTT) Effective 11/07/2013 HGB [id number] 00:56:00 Test Item Value Reference Range Interpretation Comments HEMOGLOBIN (test code = HGB) 8.2 g/dL 11.0-15.0 L HEMATOCRIT (test code = HCT) 27.2 % 33.0-45.0 L HGB [id number] 21:17:00 Test Item Value Reference Range Interpretation Comments HEMOGLOBIN (test code = HGB) 8.7 g/dL 11.0-15.0 L HEMATOCRIT (test code = HCT) 29.5 % 33.0-45.0 L HGB [id number] 14:06:00 Test Item Value Reference Range Interpretation Comments HEMOGLOBIN (test code = HGB) 7.5 g/dL 11.0-15.0 L HEMATOCRIT (test code = HCT) 24.9 % 33.0-45.0 L COMPREHENSIVE METABOLIC [id number] 05:37:00 Test Item Value Reference Range Interpretation Comments SODIUM (test code = NA) 135 mEq/L 134-147 N POTASSIUM (test code = 3.9 mEq/L 3.4-5.0 N K) CHLORIDE (test code = 102 mEq/L 100-108 N CL) CARBON DIOXIDE (test 28 mEq/L 21-33 N code = CO2) ANION GAP (test code = 9 0-20 N GAP) GLUCOSE (test code = 99 mg/dL 70-110 N GLU) BLOOD UREA NITROGEN 7 mg/dL 7-18 N (test code = BUN) GLOMERULAR FILTRATION 92.2 95-105 L Units of measure = RATE (test code = GFR) ml/mi n/1.73 m2 CREATININE (test code = 0.7 mg/dL 0.6-1.3 N CREAT) TOTAL PROTEIN (test 6.5 g/dL 6.4-8.2 code = PROT) ALBUMIN (test code = 2.80 g/dL 3.4-5.0 L ALB) CALCIUM (test code = 8.1 mg/dL 8.0-10.5 N CA) BILIRUBIN TOTAL (test 0.20 mg/dL 0.0-1.0 N code = BILT) SGOT/AST (test code = 24 IUnit/L 15-37 N AST) SGPT/ALT (test code = 31 IUnit/L 15-65 N ALT) ALKALINE PHOSPHATASE 66 IUnit/L 20-125 N TOTAL (test code = ALKP) CBC W/AUTO [id number] 05:14:00 Test Item Value Reference Range Interpretation Comments WHITE BLOOD CELL (test code = 4.49 x10 3/uL 4.5-11.0 L WBC) RED BLOOD CELL (test code = 2.62 x10 6/uL 3.54-5.02 L RBC) HEMOGLOBIN (test code = HGB) 7.6 g/dL 11.0-15.0 L HEMATOCRIT (test code = HCT) 24.8 % 33.0-45.0 L MEAN CELL VOLUME (test code = 94.7 fL 81.0-99.0 N MCV) MEAN CELL HGB (test code = MCH) 29.0 pg 27.0-33.0 N MEAN CELL HGB CONCETRATION 30.6 g/dL 33.0-37.0 L (test code = MCHC) RED CELL DISTRIBUTION WIDTH CV 17.5 % 11.5-14.5 H (test code = RDW) RED CELL DISTRIBUTION WIDTH SD 60.3 fL 37.0-54.0 H (test code = RDW-SD) PLATELET COUNT (test code = 215 x10 3/uL 150-400 N PLT) MEAN PLATELET VOLUME (test code 8.5 fL 7.0-9.0 N = MPV) NEUTROPHIL % (test code = NT%) 44.8 % 56.0-77.0 L IMMATURE GRANULOCYTE % (test 0.4 % 0.0-2.0 N code = IG%) LYMPHOCYTE % (test code = LY%) 41.0 % 14.0-32.0 H MONOCYTE % (test code = MO%) 12.7 % 4.8-9.0 H EOSINOPHIL % (test code = EO%) 0.7 % 0.3-3.7 N BASOPHIL % (test code = BA%) 0.4 % 0.0-2.0 N NUCLEATED RBC % (test code = 0.0 % 0-0 N NRBC%) NEUTROPHIL # (test code = NT#) 2.01 x10 3/uL 2.0-7.6 N IMMATURE GRANULOCYTE # (test 0.02 x10 3/uL 0.00-0.03 N code = IG#) LYMPHOCYTE # (test code = LY#) 1.84 x10 3/uL 1.0-3.8 N MONOCYTE # (test code = MO#) 0.57 x10 3/uL 0.1-0.8 N EOSINOPHIL # (test code = EO#) 0.03 x10 3/uL 0.0-0.2 N BASOPHIL # (test code = BA#) 0.02 x10 3/uL 0.0-0.2 N NUCLEATED RBC # (test code = 0.00 x10 3/uL 0.0-0.1 N NRBC#) MANUAL DIFF REQUIRED (test code NO = MDIFF) URINALYSIS [id number] 00:32:00 Test Item Value Reference Range Interpretation Comments UA COLOR (test code = COLU) YELLOW YEL/STRAW UA APPEARANCE (test code = CLEAR CLEAR APPU) UA GLUCOSE DIPSTICK (test code NEGATIVE NEGATIVE = DGLUU) UA BILIRUBIN DIPSTICK (test NEGATIVE NEGATIVE code = BILU) UA KETONE DIPSTICK (test code NEGATIVE NEGATIVE = KETU) UA SPECIFIC GRAVITY (test code 1.011 1.005-1.030 N = SGU) UA BLOOD DIPSTICK (test code = NEGATIVE NEGATIVE SHAR) UA PH DIPSTICK (test code = 6.0 5.0-7.0 N CRISS) UA PROTEIN DIPSTICK (test code NEGATIVE NEGATIVE = PROU) UA UROBILINIOGEN DIPSTICK 0.2 mg/dL 0.2-1.0 (test code = URO) UA NITRITE DIPSTICK (test code NEGATIVE NEGATIVE = DANISH) UA LEUKOCYTE ESTERASE DIPSTICK TRACE NEGATIVE A (test code = LEUU) UA WBC (test code = WBCU) 4-9 WBC/HPF 0-3 A UA RBC (test code = RBCU) 0-3 RBC/HPF 0-3 UA BACTERIA (test code = BACU) NONE SEEN /HPF NONE SEEN UA SQUAMOUS CELLS (test code = 0-5 /HPF NONE SEEN SQU) COMMENTS: Clean CatchHEPATIC FUNCTION [id number] 22:36:00 Test Item Value Reference Range Interpretation Comments TOTAL PROTEIN (test code = PROT) 7.7 g/dL 6.4-8.2 N ALBUMIN (test code = ALB) 3.00 g/dL 3.4-5.0 L BILIRUBIN TOTAL (test code = 0.20 mg/dL 0.0-1.0 N BILT) BILIRUBIN DIRECT (test code = < 0.10 MG/DL 0.0-0.30 N BILD) BILIRUBIN INDIRECT (test code = 0.10 MG/DL BILIND) SGOT/AST (test code = AST) 24 IUnit/L 15-37 N SGPT/ALT (test code = ALT) 38 IUnit/L 15-65 N ALKALINE PHOSPHATASE TOTAL (test 77 IUnit/L 20-125 N code = ALKP) [id number] 22:36:00 Test Item Value Reference Range Interpretation Comments LIPASE (test code = LIP) 85 IUnit/L 73-393 N HCG SERUM [id number] 22:36:00 Test Item Value Reference Range Interpretation Comments HCG SERUM QUAL (test code = SERUM NEGATIVE NEGATIVE HCGQL) PROTHROMBIN [id number] 22:34:00 Test Item Value Reference Range Interpretation Comments PROTHROMBIN TIME 13.1 SECONDS 9.3-12.9 H PATIENT (test code = PTP) INTERNATIONAL NORMAL 1.2 0.8-1.2 N TARGET INR BY RATIO (test code = INDICATIO N Indication INR) INR1. Prophylax is of venous thrombos is 2.0 - 3.0 (orthoped ic surgery), Proph ylaxis of venous throm bosis (other than hig h-risk surgery), Treat ment of Deep Vein Thrombosis/Pulm onary Embolism, Preve ntion of systemic emb olism - Tissue heart va lves, Acute Myocardia l Infarction (to prevent systemic emboli sm), Valvular heart disease, Atrial Fibrillation, Bileaflet mecha nical valve in aortic position.2. Mec hanical prosthetic valv es (high risk), 2. 5 - 3.5 Presence of Lup us Anticoagulant o r Antiphospholipi d Antibodies, Pre vention of systemic emb olism - Acute Myocardia l Infarction (to prevent recurrent infar ct). THROMBOPLASTIN TIME [id number] 22:34:00 Test Item Value Reference Range Interpretation Comments THROMBOPLASTIN TIME 29.2 Seconds 25.0-39.5 N Therape utic Range: PARTIAL (test code = 61.8-83 .8 Sec PTT) Effective 11/07/2013 HEPATIC FUNCTION [id number] 22:34:00 Test Item Value Reference Range Interpretation Comments TOTAL PROTEIN (test code = PROT) g/dL 6.4-8.2 ALBUMIN (test code = ALB) g/dL 3.4-5.0 BILIRUBIN TOTAL (test code = BILT) mg/dL 0.0-1.0 BILIRUBIN DIRECT (test code = BILD) MG/DL 0.0-0.30 SGOT/AST (test code = AST) IUnit/L 15-37 SGPT/ALT (test code = ALT) IUnit/L 15-65 ALKALINE PHOSPHATASE TOTAL (test IUnit/L 20-125 code = ALKP) [id number] 22:34:00 Test Item Value Reference Range Interpretation Comments LIPASE (test code = LIP) IUnit/L 73-393 HCG SERUM [id number] 22:34:00 Test Item Value Reference Range Interpretation Comments HCG SERUM QUAL (test code = SERUM NEGATIVE NEGATIVE HCGQL) TROPONIN-I [id number] 22:24:00 Test Item Value Reference Range Interpretation Comments TROPONIN-I RAPID 0.00 ng/mL 0.00-0.08 N Performed b y certified (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 The universal defin ition of DE, according to is taskforce, is d efined as a typical rise an d gradual fall ofcardiac biomarkers (preferably tro ponin) with at least oneval ue above the 99th percentile of the upper reference limit (URL) together with e vidence of myocardial isch emia with at least one of th e following:* isc hemic symptoms,* path ological Q waves on electr ocardiogram (ECG),* ischemi c ECG changes,* or im aging evidence of new loss of viable myocardi um or new regional wall m otion abnormality. An elevated troponin value alone is not sufficient todi agnose a myocardial infa rction. Rather, the pat ient sclinical prese ntation (history, physi margarita exam) and ECGshould b e used in conjunction wit h troponin in thediagnosti c evaluation of suspected my ocardial infarction. Ase rial sampling protoc ol is recommended to facilitate the identificat ion of temporal change s in troponin levels characteristic of DE. CBC W/AUTO [id number] 22:20:00 Test Item Value Reference Range Interpretation Comments WHITE BLOOD CELL (test code = 6.02 x10 3/uL 4.5-11.0 N WBC) RED BLOOD CELL (test code = 2.81 x10 6/uL 3.54-5.02 L RBC) HEMOGLOBIN (test code = HGB) 8.2 g/dL 11.0-15.0 L HEMATOCRIT (test code = HCT) 26.7 % 33.0-45.0 L MEAN CELL VOLUME (test code = 95.0 fL 81.0-99.0 N MCV) MEAN CELL HGB (test code = MCH) 29.2 pg 27.0-33.0 N MEAN CELL HGB CONCETRATION 30.7 g/dL 33.0-37.0 L (test code = MCHC) RED CELL DISTRIBUTION WIDTH CV 17.5 % 11.5-14.5 H (test code = RDW) RED CELL DISTRIBUTION WIDTH SD 60.5 fL 37.0-54.0 H (test code = RDW-SD) PLATELET COUNT (test code = 218 x10 3/uL 150-400 N PLT) MEAN PLATELET VOLUME (test code 8.1 fL 7.0-9.0 N = MPV) NEUTROPHIL % (test code = NT%) 50.4 % 56.0-77.0 L IMMATURE GRANULOCYTE % (test 0.3 % 0.0-2.0 N code = IG%) LYMPHOCYTE % (test code = LY%) 38.0 % 14.0-32.0 H MONOCYTE % (test code = MO%) 10.5 % 4.8-9.0 H EOSINOPHIL % (test code = EO%) 0.3 % 0.3-3.7 N BASOPHIL % (test code = BA%) 0.5 % 0.0-2.0 N NUCLEATED RBC % (test code = 0.0 % 0-0 N NRBC%) NEUTROPHIL # (test code = NT#) 3.03 x10 3/uL 2.0-7.6 N IMMATURE GRANULOCYTE # (test 0.02 x10 3/uL 0.00-0.03 N code = IG#) LYMPHOCYTE # (test code = LY#) 2.29 x10 3/uL 1.0-3.8 N MONOCYTE # (test code = MO#) 0.63 x10 3/uL 0.1-0.8 N EOSINOPHIL # (test code = EO#) 0.02 x10 3/uL 0.0-0.2 N BASOPHIL # (test code = BA#) 0.03 x10 3/uL 0.0-0.2 N NUCLEATED RBC # (test code = 0.00 x10 3/uL 0.0-0.1 N NRBC#) MANUAL DIFF REQUIRED (test code NO = MDIFF) CHEMISTRY 8 [id number] 22:16:00 Test Item Value Reference Range Interpretation Comments ISTAT-SODIUM (test code = NAP) MMOL/L 134-147 ISTAT-POTASSIUM (test code = KP) MMOL/L 3.4-5.0 ISTAT-CHLORIDE (test code = CLP) MMOL/L 100-108 ISTAT CARBON DIOXIDE (test code = mmol/L 21-33 N ISTAT-CO2) ISTAT CALCIUM IONIZED (test code = MG/DL 1.12-1.32 ISTAT-BRYCE) ISTAT-GLUCOSE (test code = GLUP) MG/DL 70-110 H ISTAT-BUN (test code = BUNP) MG/DL 7-18 N BEDSIDE CREATININE (test code = MG/DL 0.6-1.3 N CREATBED) GLOMERULAR FILTRATION RATE POC 65 ML/MIN (test code = GFRBED) CHEMISTRY 8 [id number] 22:16:00 Test Item Value Reference Range Interpretation Comments ISTAT-SODIUM (test 133 MMOL/L 134-147 L code = NAP) ISTAT-POTASSIUM (test 4.1 MMOL/L 3.4-5.0 N code = KP) ISTAT-CHLORIDE (test 93 MMOL/L 100-108 L Perform ed by code = CLP) certified opera lai at [facility] ISTAT CARBON DIOXIDE 31.0 mmol/L 21-33 N (test code = ISTAT-CO2) ISTAT CALCIUM IONIZED 1.13 MG/DL 1.12-1.32 N (test code = ISTAT-BRYCE) ISTAT-GLUCOSE (test 113 MG/DL 70-110 H code = GLUP) ISTAT-BUN (test code = 10 MG/DL 7-18 N BUNP) BEDSIDE CREATININE 1.0 MG/DL 0.6-1.3 N (test code = CREATBED) GLOMERULAR FILTRATION 65 ML/MIN RATE POC (test code = GFRBED) [id number] 16:23:00 Test Item Value Reference Range Interpretation Comments MAGNESIUM (BEAKER) (test code = 1.1 mg/dL 1.6-2.6 L 627) COMPREHENSIVE METABOLIC [id number] 16:23:00 Test Item Value Reference Range Interpretation Comments TOTAL PROTEIN 6.9 gm/dL 6.0-8.3 (BEAKER) (test code = 770) ALBUMIN (BEAKER) 3.9 g/dL 3.5-5.0 (test code = 1145) ALKALINE PHOSPHATASE 46 U/L 40-150 (BEAKER) (test code = 346) BILIRUBIN TOTAL < mg/dL 0.2-1.2 (BEAKER) (test code = 377) SODIUM (BEAKER) (test 131 meq/L 136-145 L code = 381) POTASSIUM (BEAKER) 4.3 meq/L 3.5-5.1 (test code = 379) CHLORIDE (BEAKER) 98 meq/L 98-107 (test code = 382) CO2 (BEAKER) (test 22 meq/L 22-29 code = 355) BLOOD UREA NITROGEN 13 mg/dL 7-21 (BEAKER) (test code = 354) CREATININE (BEAKER) 0.84 mg/dL 0.57-1.25 (test code = 358) GLUCOSE RANDOM 104 mg/dL 70-105 (BEAKER) (test code = 652) CALCIUM (BEAKER) 9.5 mg/dL 8.4-10.2 (test code = 697) AST (SGOT) (BEAKER) 26 U/L 5-34 (test code = 353) ALT (SGPT) (BEAKER) 38 U/L 6-55 (test code = 347) EGFR (BEAKER) (test 75 mL/min/1.73 ESTIMA ADRIANA GFR IS code = 1092) sq m NOT ACCURATE CREATININE CLEARANCE IN PREDICTING GLOMERULAR FILTRATION RATE . ESTIMATED GFR I S NOT APPLICABLE FOR DIALYSIS PATIEN TS. CBC W/PLT COUNT & AUTO [id number] 15:28:00 Test Item Value Reference Range Interpretation Comments WHITE BLOOD CELL COUNT (BEAKER) 3.5 K/ L 3.5-10.5 (test code = 775) RED BLOOD CELL COUNT (BEAKER) 3.10 M/ L 3.93-5.22 L (test code = 761) HEMOGLOBIN (BEAKER) (test code = 9.1 GM/DL 11.2-15.7 L 410) HEMATOCRIT (BEAKER) (test code = 26.7 % 34.1-44.9 L 411) MEAN CORPUSCULAR VOLUME (BEAKER) 86.1 fL 79.4-94.8 (test code = 753) MEAN CORPUSCULAR HEMOGLOBIN 29.4 pg 25.6-32.2 (BEAKER) (test code = 751) MEAN CORPUSCULAR HEMOGLOBIN CONC 34.1 GM/DL 32.2-35.5 (BEAKER) (test code = 752) RED CELL DISTRIBUTION WIDTH 13.2 % 11.7-14.4 (BEAKER) (test code = 412) PLATELET COUNT (BEAKER) (test 143 K/CU MM 150-450 L code = 756) MEAN PLATELET VOLUME (BEAKER) 9.8 fL 9.4-12.3 (test code = 754) NUCLEATED RED BLOOD CELLS 0 /100 WBC 0-0 (BEAKER) (test code = 413) NEUTROPHILS RELATIVE PERCENT 72 % (BEAKER) (test code = 429) LYMPHOCYTES RELATIVE PERCENT 8 % (BEAKER) (test code = 430) MONOCYTES RELATIVE PERCENT 16 % (BEAKER) (test code = 431) EOSINOPHILS RELATIVE PERCENT 3 % (BEAKER) (test code = 432) BASOPHILS RELATIVE PERCENT 1 % (BEAKER) (test code = 437) NEUTROPHILS ABSOLUTE COUNT 2.52 K/ L 1.56-6.13 (BEAKER) (test code = 670) LYMPHOCYTES ABSOLUTE COUNT 0.27 K/ L 1.18-3.74 L (BEAKER) (test code = 414) MONOCYTES ABSOLUTE COUNT (BEAKER) 0.57 K/ L 0.24-0.36 H (test code = 415) EOSINOPHILS ABSOLUTE COUNT 0.11 K/ L 0.04-0.36 (BEAKER) (test code = 416) BASOPHILS ABSOLUTE COUNT (BEAKER) 0.02 K/ L 0.01-0.08 (test code = 417) IMMATURE GRANULOCYTES-RELATIVE 1 % 0-1 PERCENT (BEAKER) (test code = 2801) CBC W/PLT COUNT & AUTO [id number] 15:45:00 Test Item Value Reference Range Interpretation Comments WHITE BLOOD CELL COUNT (BEAKER) 3.5 K/ L 3.5-10.5 (test code = 775) RED BLOOD CELL COUNT (BEAKER) 3.24 M/ L 3.93-5.22 L (test code = 761) HEMOGLOBIN (BEAKER) (test code = 9.6 GM/DL 11.2-15.7 L 410) HEMATOCRIT (BEAKER) (test code = 28.1 % 34.1-44.9 L 411) MEAN CORPUSCULAR VOLUME (BEAKER) 86.7 fL 79.4-94.8 (test code = 753) MEAN CORPUSCULAR HEMOGLOBIN 29.6 pg 25.6-32.2 (BEAKER) (test code = 751) MEAN CORPUSCULAR HEMOGLOBIN CONC 34.2 GM/DL 32.2-35.5 (BEAKER) (test code = 752) RED CELL DISTRIBUTION WIDTH 12.4 % 11.7-14.4 (BEAKER) (test code = 412) PLATELET COUNT (BEAKER) (test 149 K/CU MM 150-450 L code = 756) MEAN PLATELET VOLUME (BEAKER) 10.3 fL 9.4-12.3 (test code = 754) NUCLEATED RED BLOOD CELLS 0 /100 WBC 0-0 (BEAKER) (test code = 413) IMMATURE GRANULOCYTES-RELATIVE 1 % 0-1 PERCENT (BEAKER) (test code = 2801) (MANUAL DIFFERENTIAL)[id number] 15:45:00 Test Item Value Reference Range Interpretation Comments NEUTROPHILS - REL (DIFF) (BEAKER) 74 % (test code = 1359) LYMPHOCYTES - REL (DIFF) (BEAKER) 5 % (test code = 1360) MONOCYTES - REL (DIFF) (BEAKER) 15 % (test code = 1361) EOSINOPHILS - REL (DIFF) (BEAKER) 3 % (test code = 1362) BASOPHILS - REL (DIFF) (BEAKER) 1 % (test code = 1363) BANDS - REL (DIFF) (BEAKER) (test 2 % 0-10 code = 1348) NEUTROPHILS - ABS (DIFF) (BEAKER) 2.59 K/ L 1.80-8.00 (test code = 1365) LYMPHOCYTES - ABS (DIFF) (BEAKER) 0.18 K/ L 1.48-4.50 L (test code = 1366) MONOCYTES - ABS (DIFF) (BEAKER) 0.53 K/ L 0.00-1.30 (test code = 1367) EOSINOPHILS - ABS (DIFF) (BEAKER) 0.11 K/ L 0.00-0.50 (test code = 1368) BASOPHILS - ABS (DIFF) (BEAKER) 0.04 K/ L 0.00-0.20 (test code = 1369) BANDS-ABS (DIFF) (BEAKER) (test 0.1 K/ L 0.0-0.8 code = 1349) TOTAL COUNTED (BEAKER) (test code = 100 1351) BANDS + SEGMENTED NEUTROPHILS 2.66 (BEAKER) (test code = 1352) WBC MORPHOLOGY (BEAKER) (test code Normal = 487) PLT MORPHOLOGY (BEAKER) (test code Normal = 486) RBC MORPHOLOGY (BEAKER) (test code Normal = 762) [id number] 15:12:00 Test Item Value Reference Range Interpretation Comments MAGNESIUM (BEAKER) (test code = 1.6 mg/dL 1.6-2.6 627) COMPREHENSIVE METABOLIC [id number] 15:12:00 Test Item Value Reference Range Interpretation Comments TOTAL PROTEIN 7.0 gm/dL 6.0-8.3 (BEAKER) (test code = 770) ALBUMIN (BEAKER) 4.0 g/dL 3.5-5.0 (test code = 1145) ALKALINE PHOSPHATASE 46 U/L 40-150 (BEAKER) (test code = 346) BILIRUBIN TOTAL < mg/dL 0.2-1.2 (BEAKER) (test code = 377) SODIUM (BEAKER) (test 134 meq/L 136-145 L code = 381) POTASSIUM (BEAKER) 4.3 meq/L 3.5-5.1 (test code = 379) CHLORIDE (BEAKER) 97 meq/L 98-107 L (test code = 382) CO2 (BEAKER) (test 30 meq/L 22-29 H code = 355) BLOOD UREA NITROGEN 7 mg/dL 7-21 (BEAKER) (test code = 354) CREATININE (BEAKER) 0.75 mg/dL 0.57-1.25 (test code = 358) GLUCOSE RANDOM 93 mg/dL 70-105 (BEAKER) (test code = 652) CALCIUM (BEAKER) 9.0 mg/dL 8.4-10.2 (test code = 697) AST (SGOT) (BEAKER) 18 U/L 5-34 (test code = 353) ALT (SGPT) (BEAKER) 26 U/L 6-55 (test code = 347) EGFR (BEAKER) (test 86 mL/min/1.73 ESTIMA ADRIANA GFR IS code = 1092) sq m NOT ACCURATE CREATININE CLEARANCE IN PREDICTING GLOMERULAR FILTRATION RATE . ESTIMATED GFR I S NOT APPLICABLE FOR DIALYSIS PATIEN TS. [id number] 14:59:00 Test Item Value Reference Range Interpretation Comments MAGNESIUM (BEAKER) (test code = 1.4 mg/dL 1.6-2.6 L 627) COMPREHENSIVE METABOLIC [id number] 14:59:00 Test Item Value Reference Range Interpretation Comments TOTAL PROTEIN 7.1 gm/dL 6.0-8.3 (BEAKER) (test code = 770) ALBUMIN (BEAKER) 4.0 g/dL 3.5-5.0 (test code = 1145) ALKALINE PHOSPHATASE 46 U/L 40-150 (BEAKER) (test code = 346) BILIRUBIN TOTAL < mg/dL 0.2-1.2 (BEAKER) (test code = 377) SODIUM (BEAKER) (test 135 meq/L 136-145 L code = 381) POTASSIUM (BEAKER) 4.3 meq/L 3.5-5.1 (test code = 379) CHLORIDE (BEAKER) 98 meq/L 98-107 (test code = 382) CO2 (BEAKER) (test 25 meq/L 22-29 code = 355) BLOOD UREA NITROGEN 16 mg/dL 7-21 (BEAKER) (test code = 354) CREATININE (BEAKER) 0.89 mg/dL 0.57-1.25 (test code = 358) GLUCOSE RANDOM 90 mg/dL 70-105 (BEAKER) (test code = 652) CALCIUM (BEAKER) 9.1 mg/dL 8.4-10.2 (test code = 697) AST (SGOT) (BEAKER) 18 U/L 5-34 (test code = 353) ALT (SGPT) (BEAKER) 20 U/L 6-55 (test code = 347) EGFR (BEAKER) (test 70 mL/min/1.73 ESTIMA ADRIANA GFR IS code = 1092) sq m NOT ACCURATE CREATININE CLEARANCE IN PREDICTING GLOMERULAR FILTRATION RATE . ESTIMATED GFR I S NOT APPLICABLE FOR DIALYSIS PATIEN TS. CBC W/PLT COUNT & AUTO [id number] 14:36:00 Test Item Value Reference Range Interpretation Comments WHITE BLOOD CELL COUNT (BEAKER) 3.7 K/ L 3.5-10.5 (test code = 775) RED BLOOD CELL COUNT (BEAKER) 3.41 M/ L 3.93-5.22 L (test code = 761) HEMOGLOBIN (BEAKER) (test code = 10.0 GM/DL 11.2-15.7 L 410) HEMATOCRIT (BEAKER) (test code = 29.5 % 34.1-44.9 L 411) MEAN CORPUSCULAR VOLUME (BEAKER) 86.5 fL 79.4-94.8 (test code = 753) MEAN CORPUSCULAR HEMOGLOBIN 29.3 pg 25.6-32.2 (BEAKER) (test code = 751) MEAN CORPUSCULAR HEMOGLOBIN CONC 33.9 GM/DL 32.2-35.5 (BEAKER) (test code = 752) RED CELL DISTRIBUTION WIDTH 12.2 % 11.7-14.4 (BEAKER) (test code = 412) PLATELET COUNT (BEAKER) (test 127 K/CU MM 150-450 L code = 756) MEAN PLATELET VOLUME (BEAKER) 10.7 fL 9.4-12.3 (test code = 754) NUCLEATED RED BLOOD CELLS 0 /100 WBC 0-0 (BEAKER) (test code = 413) NEUTROPHILS RELATIVE PERCENT 68 % (BEAKER) (test code = 429) LYMPHOCYTES RELATIVE PERCENT 11 % (BEAKER) (test code = 430) MONOCYTES RELATIVE PERCENT 13 % (BEAKER) (test code = 431) EOSINOPHILS RELATIVE PERCENT 7 % (BEAKER) (test code = 432) BASOPHILS RELATIVE PERCENT 1 % (BEAKER) (test code = 437) NEUTROPHILS ABSOLUTE COUNT 2.50 K/ L 1.56-6.13 (BEAKER) (test code = 670) LYMPHOCYTES ABSOLUTE COUNT 0.40 K/ L 1.18-3.74 L (BEAKER) (test code = 414) MONOCYTES ABSOLUTE COUNT (BEAKER) 0.48 K/ L 0.24-0.36 H (test code = 415) EOSINOPHILS ABSOLUTE COUNT 0.24 K/ L 0.04-0.36 (BEAKER) (test code = 416) BASOPHILS ABSOLUTE COUNT (BEAKER) 0.02 K/ L 0.01-0.08 (test code = 417) IMMATURE GRANULOCYTES-RELATIVE 1 % 0-1 PERCENT (BEAKER) (test code = 2801) CT, CHEST WITH IV CONTRAST- PE TEST [id number] 09:39:00FINAL REPORT TECHNIQUE: CT scan of the chest WITH intravenous contrast. Dose modulation, iterative reconstruction, and/or weight-based adjustment of the mA/kV was utilized to reduce the radiation dose to as low as reasonably achievable. INDICATION: 42-year-old woman with shortnessof breath. COMPARISON: None. FINDINGS: LINES/TUBES: None. PULMONARY ARTERIES: Proximal to the bifurca tion of the main pulmonary artery, the main pulmonary artery is 1.8 cm in diameter. No filling defects within the pulmonary arteries to suggest pulmonary embolus. LUNGS AND AIRWAYS: Central airways arepatent. No consolidations. 2 mm nodule in the right upper lobe (axial lung window series image 21). Calcified granuloma in the left upper lobe. PLEURA: The pleural spaces are clear. HEART AND MEDIASTINUM: The visualized thyroid gland is normal. No significant mediastinal, hilar, or axillary lymphadenopathy. The heart and pericardium are within normal limits. SOFT TISSUES AND BONES: Partially visualized fusion hardware in the cervical spine. UPPER ABDOMEN: Unremarkable. IMPRESSION:No pulmonary embolior other acute abnormalities in the chest. Signed: Ramos Mayer MDReport Verified Date/Time: 09/09/2017 09:39:13 Reading Location: [facility] Diagnostic Imaging Reading Room - [place] [id number] Electronicallysigned by: RAMOS MAYER MD on 09/09/2017 09:39 [id number] 15:31:00 Test Item Value Reference Range Interpretation Comments MAGNESIUM (BEAKER) (test code = 1.9 mg/dL 1.6-2.6 627) COMPREHENSIVE METABOLIC [id number] 15:31:00 Test Item Value Reference Range Interpretation Comments TOTAL PROTEIN 7.3 gm/dL 6.0-8.3 (BEAKER) (test code = 770) ALBUMIN (BEAKER) 4.1 g/dL 3.5-5.0 (test code = 1145) ALKALINE PHOSPHATASE 48 U/L 40-150 (BEAKER) (test code = 346) BILIRUBIN TOTAL < mg/dL 0.2-1.2 (BEAKER) (test code = 377) SODIUM (BEAKER) (test 138 meq/L 136-145 code = 381) POTASSIUM (BEAKER) 4.0 meq/L 3.5-5.1 (test code = 379) CHLORIDE (BEAKER) 103 meq/L 98-107 (test code = 382) CO2 (BEAKER) (test 26 meq/L 22-29 code = 355) BLOOD UREA NITROGEN 11 mg/dL 7-21 (BEAKER) (test code = 354) CREATININE (BEAKER) 0.80 mg/dL 0.57-1.25 (test code = 358) GLUCOSE RANDOM 100 mg/dL 70-105 (BEAKER) (test code = 652) CALCIUM (BEAKER) 9.0 mg/dL 8.4-10.2 (test code = 697) AST (SGOT) (BEAKER) 17 U/L 5-34 (test code = 353) ALT (SGPT) (BEAKER) 18 U/L 6-55 (test code = 347) EGFR (BEAKER) (test 79 mL/min/1.73 ESTIMA ADRIANA GFR IS code = 1092) sq m NOT ACCURATE CREATININE CLEARANCE IN PREDICTING GLOMERULAR FILTRATION RATE . ESTIMATED GFR I S NOT APPLICABLE FOR DIALYSIS PATIEN TS. CBC W/PLT COUNT & AUTO [id number] 14:31:00 Test Item Value Reference Range Interpretation Comments WHITE BLOOD CELL COUNT (BEAKER) 3.4 K/ L 3.5-10.5 L (test code = 775) RED BLOOD CELL COUNT (BEAKER) 3.74 M/ L 3.93-5.22 L (test code = 761) HEMOGLOBIN (BEAKER) (test code = 11.1 GM/DL 11.2-15.7 L 410) HEMATOCRIT (BEAKER) (test code = 33.5 % 34.1-44.9 L 411) MEAN CORPUSCULAR VOLUME (BEAKER) 89.6 fL 79.4-94.8 (test code = 753) MEAN CORPUSCULAR HEMOGLOBIN 29.7 pg 25.6-32.2 (BEAKER) (test code = 751) MEAN CORPUSCULAR HEMOGLOBIN CONC 33.1 GM/DL 32.2-35.5 (BEAKER) (test code = 752) RED CELL DISTRIBUTION WIDTH 11.9 % 11.7-14.4 (BEAKER) (test code = 412) PLATELET COUNT (BEAKER) (test code 95 K/CU MM 150-450 L = 756) MEAN PLATELET VOLUME (BEAKER) 11.3 fL 9.4-12.3 (test code = 754) NUCLEATED RED BLOOD CELLS (BEAKER) 0 /100 WBC 0-0 (test code = 413) NEUTROPHILS RELATIVE PERCENT 61 % (BEAKER) (test code = 429) LYMPHOCYTES RELATIVE PERCENT 17 % (BEAKER) (test code = 430) MONOCYTES RELATIVE PERCENT 12 % (BEAKER) (test code = 431) EOSINOPHILS RELATIVE PERCENT 9 % (BEAKER) (test code = 432) BASOPHILS RELATIVE PERCENT 1 % (BEAKER) (test code = 437) NEUTROPHILS ABSOLUTE COUNT 2.06 K/ L 1.56-6.13 (BEAKER) (test code = 670) LYMPHOCYTES ABSOLUTE COUNT 0.58 K/ L 1.18-3.74 L (BEAKER) (test code = 414) MONOCYTES ABSOLUTE COUNT (BEAKER) 0.40 K/ L 0.24-0.36 H (test code = 415) EOSINOPHILS ABSOLUTE COUNT 0.29 K/ L 0.04-0.36 (BEAKER) (test code = 416) BASOPHILS ABSOLUTE COUNT (BEAKER) 0.03 K/ L 0.01-0.08 (test code = 417) IMMATURE GRANULOCYTES-RELATIVE 0 % 0-1 PERCENT (BEAKER) (test code = 2801) SCREEN, [id number] 18:41:00 Test Item Value Reference Range Interpretation Comments TEST URINE (BEAKER) (test Negative code = 583) [id number] 18:24:00 Test Item Value Reference Range Interpretation Comments MAGNESIUM (BEAKER) (test code = 1.8 mg/dL 1.6-2.6 627) COMPREHENSIVE METABOLIC [id number] 18:24:00 Test Item Value Reference Range Interpretation Comments TOTAL PROTEIN 7.5 gm/dL 6.0-8.3 (BEAKER) (test code = 770) ALBUMIN (BEAKER) 4.2 g/dL 3.5-5.0 (test code = 1145) ALKALINE PHOSPHATASE 48 U/L 40-150 (BEAKER) (test code = 346) BILIRUBIN TOTAL < mg/dL 0.2-1.2 (BEAKER) (test code = 377) SODIUM (BEAKER) (test 135 meq/L 136-145 L code = 381) POTASSIUM (BEAKER) 3.9 meq/L 3.5-5.1 (test code = 379) CHLORIDE (BEAKER) 99 meq/L 98-107 (test code = 382) CO2 (BEAKER) (test 29 meq/L 22-29 code = 355) BLOOD UREA NITROGEN 11 mg/dL 7-21 (BEAKER) (test code = 354) CREATININE (BEAKER) 0.80 mg/dL 0.57-1.25 (test code = 358) GLUCOSE RANDOM 102 mg/dL 70-105 (BEAKER) (test code = 652) CALCIUM (BEAKER) 9.4 mg/dL 8.4-10.2 (test code = 697) AST (SGOT) (BEAKER) 17 U/L 5-34 (test code = 353) ALT (SGPT) (BEAKER) 21 U/L 6-55 (test code = 347) EGFR (BEAKER) (test 79 mL/min/1.73 ESTIMA ADRIANA GFR IS code = 1092) sq m NOT ACCURATE CREATININE CLEARANCE IN PREDICTING GLOMERULAR FILTRATION RATE . ESTIMATED GFR I S NOT APPLICABLE FOR DIALYSIS PATIEN TS. CBC W/PLT COUNT & AUTO [id number] 17:54:00 Test Item Value Reference Range Interpretation Comments WHITE BLOOD CELL COUNT (BEAKER) 3.6 K/ L 3.5-10.5 (test code = 775) RED BLOOD CELL COUNT (BEAKER) 4.10 M/ L 3.93-5.22 (test code = 761) HEMOGLOBIN (BEAKER) (test code = 11.9 GM/DL 11.2-15.7 410) HEMATOCRIT (BEAKER) (test code = 36.6 % 34.1-44.9 411) MEAN CORPUSCULAR VOLUME (BEAKER) 89.3 fL 79.4-94.8 (test code = 753) MEAN CORPUSCULAR HEMOGLOBIN 29.0 pg 25.6-32.2 (BEAKER) (test code = 751) MEAN CORPUSCULAR HEMOGLOBIN CONC 32.5 GM/DL 32.2-35.5 (BEAKER) (test code = 752) RED CELL DISTRIBUTION WIDTH 11.9 % 11.7-14.4 (BEAKER) (test code = 412) PLATELET COUNT (BEAKER) (test 206 K/CU MM 150-450 code = 756) MEAN PLATELET VOLUME (BEAKER) 11.6 fL 9.4-12.3 (test code = 754) NUCLEATED RED BLOOD CELLS 0 /100 WBC 0-0 (BEAKER) (test code = 413) NEUTROPHILS RELATIVE PERCENT 54 % (BEAKER) (test code = 429) LYMPHOCYTES RELATIVE PERCENT 30 % (BEAKER) (test code = 430) MONOCYTES RELATIVE PERCENT 10 % (BEAKER) (test code = 431) EOSINOPHILS RELATIVE PERCENT 5 % (BEAKER) (test code = 432) BASOPHILS RELATIVE PERCENT 1 % (BEAKER) (test code = 437) NEUTROPHILS ABSOLUTE COUNT 1.93 K/ L 1.56-6.13 (BEAKER) (test code = 670) LYMPHOCYTES ABSOLUTE COUNT 1.06 K/ L 1.18-3.74 L (BEAKER) (test code = 414) MONOCYTES ABSOLUTE COUNT (BEAKER) 0.35 K/ L 0.24-0.36 (test code = 415) EOSINOPHILS ABSOLUTE COUNT 0.17 K/ L 0.04-0.36 (BEAKER) (test code = 416) BASOPHILS ABSOLUTE COUNT (BEAKER) 0.05 K/ L 0.01-0.08 (test code = 417) IMMATURE GRANULOCYTES-RELATIVE 1 % 0-1 PERCENT (BEAKER) (test code = 2801) CBC W/PLT COUNT & AUTO [id number] 15:45:00 Test Item Value Reference Range Interpretation Comments WHITE BLOOD CELL COUNT (BEAKER) 5.0 K/ L 3.5-10.5 (test code = 775) RED BLOOD CELL COUNT (BEAKER) 4.07 M/ L 3.93-5.22 (test code = 761) HEMOGLOBIN (BEAKER) (test code = 11.9 GM/DL 11.2-15.7 410) HEMATOCRIT (BEAKER) (test code = 36.7 % 34.1-44.9 411) MEAN CORPUSCULAR VOLUME (BEAKER) 90.2 fL 79.4-94.8 (test code = 753) MEAN CORPUSCULAR HEMOGLOBIN 29.2 pg 25.6-32.2 (BEAKER) (test code = 751) MEAN CORPUSCULAR HEMOGLOBIN CONC 32.4 GM/DL 32.2-35.5 (BEAKER) (test code = 752) RED CELL DISTRIBUTION WIDTH 12.4 % 11.7-14.4 (BEAKER) (test code = 412) PLATELET COUNT (BEAKER) (test 236 K/CU MM 150-450 code = 756) MEAN PLATELET VOLUME (BEAKER) 11.0 fL 9.4-12.3 (test code = 754) NUCLEATED RED BLOOD CELLS 0 /100 WBC 0-0 (BEAKER) (test code = 413) NEUTROPHILS RELATIVE PERCENT 45 % (BEAKER) (test code = 429) LYMPHOCYTES RELATIVE PERCENT 43 % (BEAKER) (test code = 430) MONOCYTES RELATIVE PERCENT 9 % (BEAKER) (test code = 431) EOSINOPHILS RELATIVE PERCENT 2 % (BEAKER) (test code = 432) BASOPHILS RELATIVE PERCENT 1 % (BEAKER) (test code = 437) NEUTROPHILS ABSOLUTE COUNT 2.27 K/ L 1.56-6.13 (BEAKER) (test code = 670) LYMPHOCYTES ABSOLUTE COUNT 2.17 K/ L 1.18-3.74 (BEAKER) (test code = 414) MONOCYTES ABSOLUTE COUNT (BEAKER) 0.46 K/ L 0.24-0.36 H (test code = 415) EOSINOPHILS ABSOLUTE COUNT 0.11 K/ L 0.04-0.36 (BEAKER) (test code = 416) BASOPHILS ABSOLUTE COUNT (BEAKER) 0.03 K/ L 0.01-0.08 (test code = 417) IMMATURE GRANULOCYTES-RELATIVE 0 % 0-1 PERCENT (BEAKER) (test code = 2801) [id number] 14:16:00 Test Item Value Reference Range Interpretation Comments MAGNESIUM (BEAKER) (test code = 2.1 mg/dL 1.6-2.6 627) COMPREHENSIVE METABOLIC [id number] 14:16:00 Test Item Value Reference Range Interpretation Comments TOTAL PROTEIN 7.8 gm/dL 6.0-8.3 (BEAKER) (test code = 770) ALBUMIN (BEAKER) 4.3 g/dL 3.5-5.0 (test code = 1145) ALKALINE PHOSPHATASE 53 U/L 40-150 (BEAKER) (test code = 346) BILIRUBIN TOTAL 0.4 mg/dL 0.2-1.2 (BEAKER) (test code = 377) SODIUM (BEAKER) (test 136 meq/L 136-145 code = 381) POTASSIUM (BEAKER) 4.2 meq/L 3.5-5.1 (test code = 379) CHLORIDE (BEAKER) 102 meq/L 98-107 (test code = 382) CO2 (BEAKER) (test 27 meq/L 22-29 code = 355) BLOOD UREA NITROGEN 9 mg/dL 7-21 (BEAKER) (test code = 354) CREATININE (BEAKER) 0.84 mg/dL 0.57-1.25 (test code = 358) GLUCOSE RANDOM 97 mg/dL 70-105 (BEAKER) (test code = 652) CALCIUM (BEAKER) 9.1 mg/dL 8.4-10.2 (test code = 697) AST (SGOT) (BEAKER) 18 U/L 5-34 (test code = 353) ALT (SGPT) (BEAKER) 18 U/L 6-55 (test code = 347) EGFR (BEAKER) (test 75 mL/min/1.73 ESTIMA ADRIANA GFR IS code = 1092) sq m NOT ACCURATE CREATININE CLEARANCE IN PREDICTING GLOMERULAR FILTRATION RATE . ESTIMATED GFR I S NOT APPLICABLE FOR DIALYSIS PATIEN TS.
[2022-06-18] MEDS ORDERED: FAMOTIDINE 20 MG/2 ML VIAL IV ONE (14:03)
[2022-06-18] MEDS ORDERED: NA CHLORIDE 0.9% 1,000 ML ONE (14:03)
[2022-06-18 14:25] LABS: Absolute Lymphocytes (CBC) 2.2 K/uL (0.7-4.9); Hematocrit 39.3 % (36.0-45.0); Lymphocytes % 28.4 % (15.3-44.8); MCV 87.1 fL (80-100); MPV 8.2 fL (7.6-11.3); RBC Red Blood Cell Count 4.52 M/uL (3.86-4.86)
[2022-06-18 14:35] LABS: Urine Bacteria 20-50 /HPF (<20); Urine RBC <5 /HPF (None Seen)
[2022-06-18 14:49] LABS: Albumin 3.7 g/dL (3.4-5.0); Bilirubin Total 0.4 mg/dL (0.2-1.0); Potassium 4.1 mmol/L (3.5-5.1); Protein, Total 8.9 g/dL (6.4-8.2)
[2022-06-18 14:54] LABS: Urine Specific Gravity/Preg 1.015 (1.005-1.030)
--- NOTE | 2022-06-18 15:37 | RAD REPORT ---
EXAM DESCRIPTION: CT - Abdomen Pelvis Wo Contrast - 06/18/2022 3:16 pm CLINICAL HISTORY: Abdominal pain COMPARISON: None TECHNIQUE: Computed axial tomography of the abdomen and pelvis was obtained. IV was not requested. O ral contrast was given. Coronal reconstructions performed. All CT scans are performed using dose optimization technique as appropriate and may include automated exposure control or mA/KV adjustment according to patient size. FINDINGS: The evaluation of solid organs and vessels is limited secondary to the lack of contrast a dministration. Fatty liver The spleen, pancreas and adrenals grossly normal. Mild bilateral hydronephrosis. A genitourinary calculus is not seen. A Marcos catheter is present with in a collapsed bladder. There is no evidence of diverticulitis. A moderate amount of ascites is present within the abdomen and pelvis. It has a mildly increased dens ity. No adnexal mass visualized. Air within the vagina Mild posterior subluxation L5 on S1 IMPRESSION: Moderate amount of ascites Air within the vagina can be insignificant. Fistula and infection can also result in this appearance
--- NOTE | 2022-06-18 15:45 | RAD REPORT ---
EXAM DESCRIPTION: MRI - Lumbar Spine Wo Con - 06/18/2022 3:09 pm CLINICAL HISTORY: Back pain, radiculopathy COMPARISON: None. TECHNIQUE: Sagittal T1, T2 and STIR weighted sequences were obtained. Axial T1 and T2 sequences were obtained through the lumbar disc levels. FINDINGS: Small right paracentral disc herniation L1-2 L2-3 are unremarkable. Mild spondylosis L3-4 Disc bulge with annular fissure L4-5. Ligamentum flavum and facet hypertrophy. The thecal sac measure s 9 millimeters. Mild posterior subluxation of L5 on S1 disc space narrowing. Small to moderate right posterolateral/l ateral disc herniation. Right neural foramina is narrowed. No significant abnormal signal within the bones IMPRESSION: Small to moderate right posterolateral/lateral disc herniation L5 on S1 Spondylosis L4-5 resulting in mild central spinal stenosis
--- NOTE | 2022-06-18 16:04 | ER ---
Nurse's Notes [facility] Name: Suze Saab Age: 47 yrs Sex: Female : 1975 Arrival Date: 06/18/2022 Time: 12:36 Bed 5 Private MD: Diagnosis: Acute kidney failure, unspecified Presentation: 06/18 13:23 Chief complaint: Patient states: I started having really bad abdominal pain on Tuesday. bm7 I went to the [facility] and they gave me pain medication but it hasn't helped and they told me to come here. Coronavirus screen: At this time, the client does not indicate any symptoms associated with coronavirus-19. Ebola Screen: No symptoms or risks identified at this time. Initial Sepsis Screen: Does the patient meet any 2 criteria? HR > 90 bpm. Does the patient have a suspected source of infection? No. Patient's initial sepsis screen is negative. Risk Assessment: Do you want to hurt yourself or someone else? Patient reports no desire to harm self or others. Onset of symptoms is unknown. 13:23 Method Of Arrival: Ambulatory 7 13:23 Acuity: ANTON 3 bm7 Triage Assessment: 13:25 General: Appears in no apparent distress. uncomfortable, obese, Behavior is calm, bm7 cooperative, appropriate for age. Pain: Complains of pain in abdomen Pain radiates to back. EENT: No deficits noted. No signs and/or symptoms were reported regarding the EENT system. Neuro: No deficits noted. Cardiovascular: No deficits noted. Respiratory: Reports shortness of breath at rest Airway is patent Respiratory effort is even, unlabored, Respiratory pattern is regular, symmetrical. GI: Abdomen is flat, distended, Abd is soft X 4 quads Abdomen is tender to palpation X 4 quads. Reports constipation. : Reports burning with urination, urinary frequency. Derm: No deficits noted. No signs and/or symptoms reported regarding the dermatologic system. Musculoskeletal: No deficits noted. No signs and/or symptoms reported regarding the musculoskeletal system. 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 - Social history:: Smoking status: Patient denies any tobacco usage or history of. Screenin:55 Abuse screen: Denies threats or abuse. Denies injuries from another. Nutritional tp1 screening: No deficits noted. Tuberculosis screening: No symptoms or risk factors identified. Fall Risk No fall in past 12 months (0 pts). No secondary diagnosis (0 pts). IV access (20 points). Ambulatory Aid- None/Bed Rest/Nurse Assist (0 pts). Gait- Normal/Bed Rest/Wheelchair (0 pts) Mental Status- Oriented to own ability (0 pts). Total Gunn Fall Scale indicates No Risk (0-24 pts). Assessment: 13:55 General: Appears in no apparent distress. uncomfortable, Behavior is cooperative, tp1 anxious. Pain: Complains of pain in epigastric area, umbilical area, suprapubic area and right lower quadrant Pain does not radiate. Pain currently is 6 out of 10 on a pain scale. Quality of pain is described as piercing, contraction Pain began 2-3 days ago. Is continuous, Aggravated by repositioning. Neuro: Glass Agitation-Sedation Scale (RASS): 0 - Alert and Calm Level of Consciousness is awake, alert, obeys commands, Oriented to person, place, time, situation. Cardiovascular: Patient's skin is warm and dry. Respiratory: Airway is patent Respiratory effort is even, unlabored. GI: Abdomen is round non-distended, Bowel sounds absent in right upper quadrant, left upper quadrant, right lower quadrant and left lower quadrant Abd is soft Abdomen is tender to palpation in epigastric area, umbilical area, suprapubic area and right lower quadrant Reports nausea, last BM 9/ and was soft. : Reports burning with urination, inability to void, urinary frequency, last void 06/17 at 6pm. EENT: No signs and/or symptoms were reported regarding the EENT system. Derm: Skin is pink, warm \\T\\ dry. Musculoskeletal: Circulation, motion, and sensation intact. 14:55 Reassessment: Patient appears in no apparent distress at this time. No changes from vg1 previously documented assessment. Patient is alert, oriented x 3, equal unlabored respirations, skin warm/dry/pink. daughter at bedside. 15:55 Reassessment: Patient appears in no apparent distress at this time. No changes from vg1 previously documented assessment. Patient and/or family updated on plan of care and expected duration. Pain level reassessed. Patient is alert, oriented x 3, equal unlabored respirations, skin warm/dry/pink. "feeling a little better". 17:27 Reassessment: Patient appears in no apparent distress at this time. No changes from tp1 previously documented assessment. Patient is alert, oriented x 3, equal unlabored respirations, skin warm/dry/pink. reports flatulence Patient denies pain at this time. 18:55 Reassessment: Patient appears in no apparent distress at this time. No changes from tp1 previously documented assessment. Patient is alert, oriented x 3, equal unlabored respirations, skin warm/dry/pink. resting in bed Patient denies pain at this time. 21:38 Reassessment: report called, nurse not available, will call back. ke1 Vital Signs: 13:23 BP 132 / 73; Pulse 100; Resp 16; Temp 97.0(TE); Pulse Ox 100% on R/A; Weight 97.98 kg bm7 (R); Height 5 ft. 4 in. (162.56 cm); Pain 10/10; 14:20 BP 134 / 80; Pulse 92; Resp 16; Pulse Ox 97% on R/A; vg1 15:30 BP 136 / 85; Pulse 93; Resp 16; Pulse Ox 96% on R/A; vg1 16:30 BP 119 / 78; Pulse 94; Resp 16; Pulse Ox 94% on R/A; tp1 17:27 BP 128 / 88; Pulse 89; Resp 16; Pulse Ox 97% on R/A; tp1 18:30 BP 125 / 84; Pulse 92; Resp 16; Pulse Ox 97% on R/A; tp1 21:50 BP 117 / 62; Pulse 90; Pulse Ox 96% ; ll3 13:23 Body Mass Index 37.08 (97.98 kg, 162.56 cm) bm7 ED Course: 12:36 Patient arrived in ED. rg4 13:03 [facility]C [facility] snw 13:03 Oseas Mensah MD is Attending Physician. snw 13:05 Oseas Mensah MD is Attending Physician. snw 13:06 Oseas Mensah MD is Attending Physician. snw 13:25 Triage completed. bm7 13:25 Arm band placed on right wrist. bm7 13:50 Adrianna Powell, NIDA is Primary Nurse. tp1 13:55 Patient has correct armband on for positive identification. Placed in gown. Bed in low tp1 position. Call light in reach. Side rails up X 1. Pulse ox on. NIBP on. 14:02 Inserted saline lock: 20 gauge in right antecubital area, using aseptic technique. tp1 Blood collected. 14:10 Marcos cath inserted, using sterile technique, 16 Fr., by vt, balloon inflated, to tp1 gravity drainage, other 300 mL yellow colored urine. 15:08 MRI Lumbar Spine wo Con In Process Unspecified. EDMS 15:18 CT Abd/Pelvis - Without Cont (PO Contrast Only) In Process Unspecified. EDMS 16:02 José Murillo MD is Hospitalizing Provider. snw 16:56 US Rp Exam Complete In Process Unspecified. EDMS 22:42 No provider procedures requiring assistance completed. Patient admitted, IV remains in ke1 place. Administered Medications: 14:03 Drug: NS 0.9% 1000 ml Route: IV; Rate: 1 bolus; Site: right antecubital; tp1 16:00 Follow up: IV Status: Completed infusion; IV Intake: 1000ml tp1 14:04 Drug: Pepcid (famotidine) 20 mg Route: IVP; Site: right antecubital; tp1 15:04 Follow up: Response: Pain is decreased tp1 18:24 Drug: Rocephin (cefTRIAXone) 1 grams Route: IV; Rate: calculated rate; Site: right tp1 antecubital; 19:20 Follow up: Response: No adverse reaction; IV Status: Completed infusion; IV Intake: ll3 100ml Medication: 13:55 VIS not applicable for this client. tp1 Intake: 15:55 IV: 1000ml (IV Fluid); Total: 1000ml. vg1 16:00 IV: 1000ml; Total: 2000ml. tp1 19:20 IV: 100ml; Total: 2100ml. ll3 Output: 15:55 Urine: 950ml (Marcos); Total: 950ml. vg1 17:26 Urine: 850ml (Marcos); Total: 1800ml. tp1 19:00 Urine: 825ml (Marcos); Total: 2625ml. tp1 21:37 Urine: 1100ml (Marcos); Total: 3725ml. ke1 Outcome: 16:03 Decision to Hospitalize by Provider. snw 22:42 Admitted to Med/surg accompanied by tech. ke1 22:42 Condition: good 22:42 Discharge instructions given to Instructed on the need for admit. 22:43 Patient left the ED. ll3 Signatures: Dispatcher [employer] EDMS Julia Boucher FNP-C PROFESSIONAL FEE CODER-Angie Cobb rg4 Heavenly Carter, RN RN vg1 Radha Johnson, RN RN bm7 Ramonita Amaya RN RN ll3 Adrianna Powell RN RN tp1 Christopher Cesar, RN RN ke1 Corrections: (The following items were deleted from the chart) 19:00 18:55 Reassessment: Patient appears in no apparent distress at this time. No changes tp1 from previously documented assessment. Patient is alert, oriented x 3, equal unlabored respirations, skin warm/dry/pink. mother at bedside Patient denies pain at this time. tp1
--- NOTE | 2022-06-18 16:04 | EDPHYS ---
Physician Documentation [facility] Name: Suze Saab Age: 47 yrs Sex: Female : 1975 Arrival Date: 06/18/2022 Time: 12:36 Bed 5 Private MD: ROBBY Physician Oseas Mensah HPI: 06/18 15:05 This 47 yrs old Female presents to ER via Ambulatory with complaints of Abdominal Pain. snw 15:05 The patient presents with abdominal pain abdominal distention in the upper abdomen, in snw the lower abdomen. Onset: The symptoms/episode began/occurred gradually, 2 week(s) ago, and became persistent. The symptoms radiate to back, both flanks. Associated signs and symptoms: Pertinent positives: anorexia, shortness of breath. The symptoms are described as constant. Severity of pain: At its worst the pain was moderate. The patient has not experienced similar symptoms in the past. 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 - Social history:: Smoking status: Patient denies any tobacco usage or history of. ROS: 15:02 Constitutional: Negative for fever, chills, and weight loss, Eyes: Negative for injury, snw pain, redness, and discharge, ENT: Negative for injury, pain, and discharge, Neck: Negative for injury, pain, and swelling, Cardiovascular: Negative for chest pain, palpitations, and edema, : Negative for injury, bleeding, discharge, and swelling, MS/Extremity: Negative for injury and deformity, Skin: Negative for injury, rash, and discoloration, Neuro: Negative for headache, weakness, numbness, tingling, and seizure, Psych: Negative for depression, anxiety, suicide ideation, homicidal ideation, and hallucinations. 15:02 Respiratory: Positive for shortness of breath, on exertion. 15:02 Abdomen/GI: Positive for abdominal pain, constipation, abdominal distension. 15:02 Back: Positive for pain at rest, pain with movement, flank pain, bilaterally. Exam: 13:48 Head/Face: Normocephalic, atraumatic. Eyes: Pupils equal round and reactive to light, snw extra-ocular motions intact. Lids and lashes normal. Conjunctiva and sclera are non-icteric and not injected. Cornea within normal limits. Periorbital areas with no swelling, redness, or edema. ENT: Nares patent. No nasal discharge, no septal abnormalities noted. Tympanic membranes are normal and external auditory canals are clear. Oropharynx with no redness, swelling, or masses, exudates, or evidence of obstruction, uvula midline. Mucous membranes moist. Neck: Trachea midline, no thyromegaly or masses palpated, and no cervical lymphadenopathy. Supple, full range of motion without nuchal rigidity, or vertebral point tenderness. No Meningismus. Chest/axilla: Normal chest wall appearance and motion. Nontender with no deformity. No lesions are appreciated. Cardiovascular: Regular rate and rhythm with a normal S1 and S2. No gallops, murmurs, or rubs. Normal PMI, no JVD. No pulse deficits. 13:48 Back: No spinal tenderness. No costovertebral tenderness. Full range of motion. Skin: Warm, dry with normal turgor. Normal color with no rashes, no lesions, and no evidence of cellulitis. MS/ Extremity: Pulses equal, no cyanosis. Neurovascular intact. Full, normal range of motion. Neuro: Awake and alert, GCS 15, oriented to person, place, time, and situation. Cranial nerves II-XII grossly intact. Motor strength 5/5 in all extremities. Sensory grossly intact. Cerebellar exam normal. Normal gait. 13:48 Constitutional: The patient appears alert, awake. 13:48 Respiratory: mild respiratory distress is noted, Respirations: shallow respirations, that is moderate, Breath sounds: are clear throughout. 13:48 Abdomen/GI: Inspection: distension, that is moderate, Bowel sounds: diminished, in all quadrants, Palpation: moderate abdominal tenderness, in all quadrants, in the right upper quadrant, left upper quadrant, right lower quadrant and left lower quadrant and abdomen. Vital Signs: 13:23 BP 132 / 73; Pulse 100; Resp 16; Temp 97.0(TE); Pulse Ox 100% on R/A; Weight 97.98 kg bm7 (R); Height 5 ft. 4 in. (162.56 cm); Pain 10/10; 14:20 BP 134 / 80; Pulse 92; Resp 16; Pulse Ox 97% on R/A; vg1 15:30 BP 136 / 85; Pulse 93; Resp 16; Pulse Ox 96% on R/A; vg1 16:30 BP 119 / 78; Pulse 94; Resp 16; Pulse Ox 94% on R/A; tp1 17:27 BP 128 / 88; Pulse 89; Resp 16; Pulse Ox 97% on R/A; tp1 18:30 BP 125 / 84; Pulse 92; Resp 16; Pulse Ox 97% on R/A; tp1 21:50 BP 117 / 62; Pulse 90; Pulse Ox 96% ; ll3 13:23 Body Mass Index 37.08 (97.98 kg, 162.56 cm) bm7 MDM: 13:03 Patient medically screened. snw 15:01 Data reviewed: vital signs, nurses notes. Data interpreted: Pulse oximetry: on room air snw is 100 %. Interpretation: normal. Counseling: I had a detailed discussion with the patient and/or guardian regarding: the historical points, exam findings, and any diagnostic results supporting the discharge/admit diagnosis, lab results, radiology results. 06/18 13:29 Order name: CBC with Diff; Complete Time: 14:32 snw 06/18 13:29 Order name: CMP; Complete Time: 14:50 snw 06/18 13:29 Order name: Lipase; Complete Time: 14:50 snw 06/18 13:29 Order name: Urine Microscopic Only; Complete Time: 14:37 snw 06/18 13:29 Order name: Test, Serum; Complete Time: 15:01 snw 06/18 13:44 Order name: Urine Dipstick-Ancillary; Complete Time: 13:47 EDMS 06/18 13:47 Order name: Urine --Ancillary (enter results); Complete Time: 14:55 bd 06/18 14:38 Order name: Urine Culture EDMS 06/18 15:01 Order name: Phosphorus; Complete Time: 16:14 snw 06/18 15:01 Order name: Uric Acid; Complete Time: 16:14 snw 06/18 15:01 Order name: CPK; Complete Time: 16:14 snw 06/18 15:01 Order name: LDH; Complete Time: 16:14 snw 06/18 15:01 Order name: Hepatitis Panel snw 06/18 15:01 Order name: Urine For Protein, Random; Complete Time: 16:24 snw 06/18 13:29 Order name: CT Abd/Pelvis - Without Cont (PO Contrast Only); Complete Time: 15:41 snw 06/18 13:29 Order name: MRI Lumbar Spine wo Con; Complete Time: 15:55 snw 06/18 15:01 Order name: Urine Osmolality; Complete Time: 16:19 snw 06/18 15:01 Order name: Urine Sodium Random; Complete Time: 16:24 snw 06/18 16:00 Order name: US Rp Exam Complete; Complete Time: 17:07 snw 06/18 17:56 Order name: CONS Physician Consult EDIL 06/18 17:56 Order name: Renal EDIL 06/18 17:56 Order name: CBC with Automated Diff EDMS 06/18 17:56 Order name: CBC with Automated Diff EDIL 06/18 17:56 Order name: Comprehensive Metabolic Panel EDIL 06/18 17:56 Order name: Comprehensive Metabolic Panel EDIL 06/18 18:42 Order name: SARS-COV-2 Antigen Rapid bd 06/18 20:01 Order name: SARS-COV-2 Antigen Rapid; Complete Time: 20:03 EDIL 06/18 13:29 Order name: IV Saline Lock; Complete Time: 14:16 snw 06/18 13:29 Order name: Labs collected and sent; Complete Time: 14:16 snw 06/18 13:29 Order name: Priti: document initial output; Complete Time: 14:16 snw Administered Medications: 14:03 Drug: NS 0.9% 1000 ml Route: IV; Rate: 1 bolus; Site: right antecubital; tp1 16:00 Follow up: IV Status: Completed infusion; IV Intake: 1000ml tp1 14:04 Drug: Pepcid (famotidine) 20 mg Route: IVP; Site: right antecubital; tp1 15:04 Follow up: Response: Pain is decreased tp1 18:24 Drug: Rocephin (cefTRIAXone) 1 grams Route: IV; Rate: calculated rate; Site: right tp1 antecubital; 19:20 Follow up: Response: No adverse reaction; IV Status: Completed infusion; IV Intake: ll3 100ml Disposition Summary: 06/18/22 16:03 Hospitalization Ordered Hospitalization Status: Inpatient Admission snw Provider: José Murillo Location: Telemetry/MedSurg (Inpatient) snw Condition: Stable snw Problem: new snw Symptoms: are unchanged snw Bed/Room Type: Standard snw Room Assignment: 409(06/18/22 20:08) mw Diagnosis - Acute kidney failure, unspecified snw Forms: - Medication Reconciliation Form snw - SBAR form snw Signatures: Dispatcher [employer] EDEstela Goldman RN RN mw Julia Boucher, BATTERYMAN-C BATTERYMAN-Csnw Radha Johnson RN RN bm7 Adrianna Powell RN RN tp1 Ramonita Amaya RN ll3 Corrections: (The following items were deleted from the chart) 20:08 16:03 snw mw
[2022-06-18 16:13] LABS: Phosphorus 4.4 mg/dL (2.5-4.9); Uric Acid 7.6 mg/dL (2.6-6.0)
[2022-06-18 16:20] LABS: UR PROTEIN 207.4 mg/dL (<11.9)
--- NOTE | 2022-06-18 17:03 | RAD REPORT ---
EXAM DESCRIPTION: US - Renal Ultrasound-Complete - 06/18/2022 4:54 pm CLINICAL HISTORY: Acute renal insufficiency COMPARISON: CT same date FINDINGS: The right kidney measures 11 cm with a normal echotexture. The left kidney measures 10 cm with a normal echotexture. Hydronephrosis is not seen. Marcos catheter is present within a collapsed bladder Moderate ascites IMPRESSION: Unremarkable renal ultrasound. Moderate ascites
[2022-06-18] MEDS ORDERED: ACETAMINOPHEN 500 MG TAB PO PRN (17:52)
[2022-06-18] MEDS ORDERED: ONDANSETRON 4 MG/2 ML VIAL IV PRN (17:52)
[2022-06-18] MEDS ORDERED: MORPHINE 2 MG/ML SYR IV PRN (17:52)
[2022-06-18] MEDS ORDERED: CEFTRIAXONE 1000 MG/VIAL ONE (18:27)
[2022-06-18] MEDS ORDERED: NA CHLORIDE 0.9% 100 ML ONE (18:27)
[2022-06-18] MEDS ORDERED: CEFTRIAXONE 1,000 MG in NA CHLORIDE 0.9% 50 ML IVPB ONE (19:00)
--- NOTE | 2022-06-18 19:11 | P.HP ---
Certification for Inpatient Patient admitted to: Inpatient With expected LOS: >2 Midnights Patient will require the following post-hospital care: None Practitioner: I am a practitioner with admitting privileges, knowledge of patient current condition, hospital course, and medical plan of care. Services: Services provided to patient in accordance with Admission requirements found in Title 42 Section 412.3 of the Code of Federal Regulations Patient History Date of Service: 06/18/22 Reason for admission: postobstructive renal failure History of Present Illness: patient is a 47-year-old female who came to the hospital with generalized weakness and abdominal pain. Her abdomen was distended. Imaging studies revealed bladder distention. Postvoid residuals were greater than 1 L. Patient has had back surgeries but MRI of the back did not reveal any cord compression. There was no evidence of cauda equinus syndrome. Patient has a Marcos catheter placed. Adequate urine output. Will continue with aggressive IV hydration. Nephrology consultation. Patient with no neurologic symptoms at this time. Will be admitted to the hospital for workup for her renal failure. - Past Medical/Surgical History -: Chronic back pain -: cervical cancer -: back surgery x3 - Family History Father Family History: Reviewed- Non-Contributory - Social History Smoking Status: Never smoker Alcohol use: No CD- Drugs: No Review of Systems 10-point ROS is otherwise unremarkable Physical Examination - Vital Signs Temperature: 98 F Blood Pressure: 140/80 Pulse: 88 Respirations: 18 Pulse Ox (%): 95 - Physical Exam General: Alert, In no apparent distress HEENT: Atraumatic, PERRLA, Mucous membr. moist/pink, EOMI, Sclerae nonicteric Neck: Supple, 2+ carotid pulse no bruit, No LAD, Without JVD or thyroid abnormality Respiratory: Clear to auscultation bilaterally, Normal air movement Cardiovascular: Regular rate/rhythm, Normal S1 S2 Gastrointestinal: Normal bowel sounds, No tenderness Musculoskeletal: No tenderness Integumentary: No rashes Neurological: Normal gait, Normal speech, Normal strength at 5/5 x4 extr, Normal tone, Normal affect Lymphatics: No axilla or inguinal lymphadenopathy - Studies Laboratory Data (last 24 hrs) 06/18/22 15:45: Uric Acid 7.6 H, Phosphorus 4.4 06/18/22 14:02: Sodium 130 L, Potassium 4.1, BUN 31 H, Creatinine 4.93 H, Glucose 113 H, Total Bilirubin 0.4, AST 16, ALT 36, Alkaline Phosphatase 82, Lipase 142 06/18/22 14:02: WBC 7.90, Hgb 13.6, Hct 39.3, Plt Count 250 Assessment & Plan - Problems (Diagnosis) (1) Bladder retention Current Visit: Yes Status: Acute (2) Acute renal failure due to urinary obstruction Current Visit: Yes Status: Acute (3) History of cervical cancer Current Visit: Yes Status: Acute (4) History of chronic back pain Current Visit: Yes Status: Acute - Plan plan: 1. Aggressive IV hydration 2. Marcos catheter placement and strict input and output 3. nephrology consultation 4. Monitor renal function 5. Outpatient follow-up with urology 6. Gi DVT prophylaxis - Advance Directives Does patient have a Living Will: No Does patient have a Durable POA for Healthcare: No
[2022-06-18 20:01] LABS: SARS-CoV-2 Antigen Rapid Res Negative (Negative)
[2022-06-18] MEDS ORDERED: NA CHLORIDE 0.9% 1,000 ML IV ONE (22:00)
[2022-06-18] MEDS: NA CHLORIDE 0.9% 1,000 ML IV SCH (23:41)
[2022-06-18 23:48] VITALS: BMI 35.4
[2022-06-19] MEDS ORDERED: TRAZODONE 50 MG TABLET PO PRN (00:24)
[2022-06-19] MEDS ORDERED: DICYCLOMINE HCL 10 MG CAP PO ONE (00:24)
[2022-06-19] MEDS ORDERED: TRAMADOL HCL 50 MG TAB PO ONE (00:24)
[2022-06-19] MEDS ORDERED: GABAPENTIN 400 MG CAP PO ONE (00:28)
[2022-06-19] MEDS ORDERED: FERROUS GLUCONATE 324 MG TAB PO ONE ×4 (00:28→02:03)
[2022-06-19] MEDS ORDERED: FERROUS GLUCONATE 324 MG TAB PO SCH ×2 (01:15→21:00)
[2022-06-19 03:13] VITALS: O2SAT 96
[2022-06-19 04:10] LABS: Absolute Lymphocytes (CBC) 1.4 K/uL (0.7-4.9); Hematocrit 31.2 % (36.0-45.0); MCV 85.8 fL (80-100); MPV 8.3 fL (7.6-11.3); RBC Red Blood Cell Count 3.63 M/uL (3.86-4.86)
[2022-06-19 04:20] LABS: Albumin 2.6 g/dL (3.4-5.0); Bilirubin Total 0.2 mg/dL (0.2-1.0); Potassium 4.2 mmol/L (3.5-5.1); Protein, Total 6.1 g/dL (6.4-8.2)
[2022-06-19] MEDS: CEFTRIAXONE 1,000 MG in NA CHLORIDE 0.9% 50 ML IVPB SCH (08:49)
[2022-06-19] MEDS: NA CHLORIDE 0.9% 1,000 ML IV SCH ×2 (08:50→09:46)
[2022-06-19] MEDS ORDERED: NA CHLORIDE 0.9% 500 ML IV ONE (11:50)
[2022-06-19] MEDS ORDERED: NA CHLORIDE 0.9% 1,000 ML IV SCH (14:17)
--- NOTE | 2022-06-19 14:26 | P.CNS ---
Date of Consult: 06/19/22 Reason for Consult: LC Chief Complaint: postobstructive renal failure History of Present Illness: A 47-year-old female who with PMhx of DJD and chronic pain syndrome on Meloxicam , gabapentin and muscle relaxant , Hx of cervical cancer S/P radiation and ch emotherapy with came to the hospital with generalized weakness and abdominal pain. Imaging studies revealed bladder distention. Postvoid residuals were greater than 1 L. 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 Total time spent 65 minutes including documentation, reviewing labs , placing orders and discussing with pt and mother at bedside Allergies azithromycin Allergy (Verified 06/18/22 23:43) "double ear infection" Home Medications: Cyclobenzaprine [Flexeril*] 10 mg PO 1700 06/19/22 Dicyclomine [Bentyl*] 20 mg PO QID 06/19/22 Ferrous Gluconate 324 mg PO BEDTIME 06/19/22 Gabapentin [Neurontin*] 400 mg PO TID 06/19/22 Meloxicam 15 mg PO DAILY 06/19/22 Tramadol HCl [Ultram] 50 mg PO TID PRN 06/19/22 Trazodone [Desyrel*] 50 mg PO BEDTIME 06/19/22 Ziprasidone [Geodon*] 20 mg PO 0800 06/19/22 Ziprasidone [Geodon*] 40 mg PO 1700 06/19/22 buPROPion HCL [Bupropion HCl] 150 mg PO 1200 06/19/22 buPROPion HCL [Bupropion HCl] 300 mg PO 0800 06/19/22 - Past Medical/Surgical History Diabetic: No -: Chronic back pain -: cervical cancer -: IBS-c -: degenerative disk disease -: bipolar -: back surgery x3 - Family History Father Family History: Reviewed- Non-Contributory - Social History Alcohol use: Yes CD- Drugs: No Caffeine use: Yes Place of Residence: Home Physical Examination Temp Pulse Resp BP Pulse Ox 97.0 F 90 14 113/59 L 96 06/19/22 08:00 06/19/22 08:00 06/19/22 08:00 06/19/22 08:00 06/19/22 08:00 Laboratory Data (last 24 hrs) 06/18/22 15:45: Uric Acid 7.6 H, Phosphorus 4.4 06/18/22 14:02: Sodium 130 L, Potassium 4.1, BUN 31 H, Creatinine 4.93 H, Glucose 113 H, Total Bilirubin 0.4, AST 16, ALT 36, Alkaline Phosphatase 82, Lipase 142 06/18/22 14:02: WBC 7.90, Hgb 13.6, Hct 39.3, Plt Count 250
[2022-06-19] MEDS: GABAPENTIN 400 MG CAP PO SCH (21:00)
[2022-06-19] MEDS ORDERED: TRAZODONE 50 MG TABLET PO SCH (21:00)
[2022-06-19] MEDS: TRAMADOL HCL 50 MG TAB PO PRN (21:04)
[2022-06-19] MEDS: DICYCLOMINE HCL 10 MG CAP PO SCH (21:04)
[2022-06-20] MEDS: TRAMADOL HCL 50 MG TAB PO PRN (05:47)
[2022-06-20 07:19] LABS: Absolute Lymphocytes (CBC) 1.6 K/uL (0.7-4.9); Hematocrit 30.1 % (36.0-45.0); Lymphocytes % 38.4 % (15.3-44.8); MCV 87.4 fL (80-100); MPV 8.3 fL (7.6-11.3); RBC Red Blood Cell Count 3.45 M/uL (3.86-4.86)
[2022-06-20] MEDS ORDERED: BUPROPION HCL XL 150 MG TAB PO SCH ×2 (08:00→12:00)
[2022-06-20] MEDS ORDERED: ZIPRASIDONE 20 MG CAP PO SCH ×2 (08:00→17:00)
[2022-06-20] MEDS: DICYCLOMINE HCL 10 MG CAP PO SCH (08:27)
[2022-06-20] MEDS: CEFTRIAXONE 1,000 MG in NA CHLORIDE 0.9% 50 ML IVPB SCH (08:28)
[2022-06-20] MEDS: GABAPENTIN 400 MG CAP PO SCH (08:28)
[2022-06-20 08:37] VITALS: BP 134/64; TEMP 97.8
[2022-06-20 08:41] LABS: Potassium 3.9 mmol/L (3.5-5.1)
[2022-06-20] MEDS ORDERED: MELOXICAM 7.5 MG TAB PO SCH (09:00)
[2022-06-20] MEDS ORDERED: CYCLOBENZAPRINE 10 MG TAB PO SCH (17:00)
[2022-06-23 19:30] LABS: HBsAG Nonreactive (Nonreactive)
== END 2022-06-20 10:19 | disposition home or self-care (01) | DRG 683 ==
LOC: ER 12:33 → ERHOLD 17:52 → 4TH 22:19
PROVIDERS: ADMIT Hospitalist; ATTEND Hospitalist
DX: N17.9 Acute kidney failure, unspecified (principal); E87.1 Hypo-osmolality and hyponatremia; R33.9 Retention of urine, unspecified; N13.9 Obstructive and reflux uropathy, unspecified; M54.9 Dorsalgia, unspecified; E66.9 Obesity, unspecified; Z68.37 Body mass index [BMI] 37.0-37.9, adult; Z85.41 Personal history of malignant neoplasm of cervix uteri; Z20.822 Contact with and (suspected) exposure to COVID-19
CPT/HCPCS: 36415; 51702; 72148; 74176; 76770; 80048; 80053; 80074; 81003; 81015; 81025; 82550; 83615; 83690; 83935; 84100; 84156; 84300; 84550; 84703; 85025; 87086; 87088; 87811; 96361; 96365; 96375; 99285; J2270; J7030; J7040

== ENCOUNTER 2022-06-26 11:37 | Emergency (ER) | payer OTHER ==
--- OUTSIDE RECORDS SUMMARY | 2022-06-26 11:45 | XMS REPORT | Continuity of Care Document ---
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 DIAGNOSIS Rectal bleed Signed SIGNATURE ON FILE Kelsey Waldron MD 12/02/18 1002 END OF REPORT BASIC METABOLIC [id number] 08:58:00 Test Item Value Reference Range Interpretation [...] 8.6 mg/dL 8.0-10.5 N CA) CBC W/AUTO [id number] 08:00:00 Test Item Value Reference Range Interpretation [...] (test code NO = MDIFF) PROTEIN ELECTROPHORESIS [id number] 15:18:00 Test Item Value Reference Range Interpretation Comments TOTAL PROTEIN 6.1 g/dL 6.0-8.5 (test code = PROTE) ALBUMIN (test 2.7 g/dL 2.9-4.4 A code = ALBE) [id number]-[id number] 0.3 g/dL 0.0-0.4 (test code = A1G) [id number]-2-RKKYZCBQ 0.9 g/dL 0.4-1.0 (test code = A2G) [...] otein is not apparent.Perfor med At: [facility] [id number] [facility] [place], [place] [id number] Elijah Black MD Ph:[phone] rform ed At: [facility] [id number] [place], [place] [id number] h CN MD Ph:[phone] LACTIC DEHYDROGENASE(LDH)2018-12-01 15:18:00 Test Item Value Reference Range Interpretation Comments LACTIC DEHYDROGENASE(LDH) (test 207 IUnits/L 84-246 N code = LDH) TOTAL IRON BINDING [id number] 15:18:00 Test Item Value Reference Range Interpretation Comments SERUM IRON (test code = IRON) 28 mcg/dL 35-150 L TOTAL IRON BINDING CAPACITY (test 198 mcg/dL 260-445 L code = TIBC) UIBC (test code = UIBC) 170 mcg/dL IRON SATURATION (test code = 14.1 % 14-34 N FESAT) [id number] 15:18:00 Test Item Value Reference Range Interpretation Comments FERRITIN (test code = MARVA) 166.2 ng/mL 11.0-306.8 N VITAMIN D 1,77-[id number] 12:13:00 Test Item Value Reference Range Interpretation Comments VITAMIN D 51.3 pg/mL 19.9-79.3 Performed At: B N 1,25-DIHYDROXY (test [facility] [place] [address] code = [id number]) [place], [place] [id number] sg Stern MD Ph:[phone] CBC W/AUTO [id number] 08:13:00 Test Item Value Reference Range Interpretation [...] (test code NO = MDIFF) BASIC METABOLIC [id number] 07:50:00 Test Item Value Reference Range Interpretation [...] 8.3 mg/dL 8.0-10.5 N CA) BASIC METABOLIC [id number] 07:49:00 Test Item Value Reference Range Interpretation [...] 8.1 mg/dL 8.0-10.5 N CA) CBC W/AUTO [id number] 07:29:00 Test Item Value Reference Range Interpretation [...] DIFF REQUIRED (test code NO = MDIFF) [id number] 07:27:00 Test Item Value Reference Range Interpretation Comments HAPTOGLOBIN (test code 192 mg/dL 34-200 Perfo rmed At: BN = HAPT) [address] [id number] ra Leena PLASENCIA Ph:[phone] BASIC METABOLIC [id number] 08:41:00 Test Item Value Reference Range Interpretation [...] 8.1 mg/dL 8.0-10.5 N CA) CBC W/AUTO [id number] 08:07:00 Test Item Value Reference Range Interpretation [...] (test code NO = MDIFF) UA CULT [id number] 15:35:00 Test Item Value Reference Range Interpretation Comments UA WBC (test code 4-9 WBC/HPF 0-3 A = WBCU) UA SQUAMOUS CELLS 0-5 /HPF NONE SEEN (test code = SQU) UA CULTURE NEEDED? NO, WBC<10 Culture Chk Criteria not met, (test code = Criteria Urine Culture UACULT) cancelled. URIC [id number] 15:28:00 Test Item Value Reference Range Interpretation Comments URIC ACID (test code = URIC) 3.8 mg/dL 2.6-7.2 N [id number] 15:28:00 Test Item Value Reference Range Interpretation Comments MAGNESIUM (test code = MAG) 2.10 mg/dL 1.8-2.4 N SERUM [id number] 15:28:00 Test Item Value Reference Range Interpretation Comments SERUM IRON (test code = IRON) 92 mcg/dL 35-150 N VITAMIN [id number] 15:28:00 Test Item Value Reference Range Interpretation Comments VITAMIN B12 (test code = VITB12) 1042 pg/mL 193-986 H THYROID STIMULATING [id number] 15:28:00 Test Item Value Reference Range Interpretation Comments THYROID STIMULATING 0.81 0.42-5.47 N Results in HORMONE (test code = TSH) mi lli-International Units/mL VALPROIC ACID (DEPAKENE)2018-11-28 15:28:00 Test Item Value Reference Range Interpretation Comments VALPROIC ACID (DEPAKENE) (test code 31 mcg/mL 50.0-100.0 L = VALP) VITAMIN [id number] 15:28:00 Test Item Value Reference Range Interpretation Comments VITAMIN A (test code = MICHELLE) HGBA1C%2018-11-28 15:13:00 Test Item Value Reference Range Interpretation Comments HGBA1C% (test code = HGBA1C%) < 3.5 %A1C 4.8-6.0 L HGB [id number] 14:43:00 Test Item Value Reference Range Interpretation Comments HEMOGLOBIN (test code = HGB) 7.8 g/dL 11.0-15.0 L HEMATOCRIT (test code = HCT) 26.0 % 33.0-45.0 L HCG SERUM [id number] 08:47:00 Test Item Value Reference Range Interpretation Comments HCG SERUM QUAL (test code = SERUM NEGATIVE NEGATIVE HCGQL) CBC W/AUTO [id number] 08:40:00 Test Item Value Reference Range Interpretation [...] 5.0 % 0.3-2.3 H RETICA) COMPREHENSIVE METABOLIC [id number] 08:24:00 Test Item Value Reference Range Interpretation [...] TOTAL (test code = ALKP) PROTEIN ELECTROPHORESIS [id number] 08:18:00 Test Item Value Reference Range Interpretation Comments TOTAL PROTEIN (test code = PROTE) ALBUMIN (test code = ALBE) QWMOS-3-ANLWVOIU (test code = A1G) [id number]-8-IVYZKMQU (test code = A2G) BETA GLOBULIN (test code = BG) GAMMA GLOBULIN (test code = GG) M-SPIKE,SERUM (test code = MSPIKES) GLOBULIN ELECT (test code = GLOBE) ALBUMIN/GLOBULIN RATIO (test code = AGE) PROT.ELECTROPH.INTERPRETATION (test code = ELEINT) LACTIC DEHYDROGENASE(LDH)2018-11-28 08:18:00 Test Item Value Reference Range Interpretation Comments LACTIC DEHYDROGENASE(LDH) (test 207 IUnits/L 84-246 N code = LDH) TOTAL IRON BINDING [id number] 08:18:00 Test Item Value Reference Range Interpretation Comments SERUM IRON (test code = IRON) 28 mcg/dL 35-150 L TOTAL IRON BINDING CAPACITY (test 198 mcg/dL 260-445 L code = TIBC) UIBC (test code = UIBC) 170 mcg/dL IRON SATURATION (test code = 14.1 % 14-34 N FESAT) [id number] 08:18:00 Test Item Value Reference Range Interpretation Comments FERRITIN (test code = MARVA) 166.2 ng/mL 11.0-306.8 N THROMBOPLASTIN TIME [id number] 06:17:00 Test Item Value Reference Range Interpretation Comments THROMBOPLASTIN TIME 28.9 Seconds 25.0-39.5 N Therape utic Range: PARTIAL (test code = 61.8-83 .8 Sec PTT) Effective 11/07/2013 HGB [id number] 00:56:00 Test Item Value Reference Range Interpretation Comments HEMOGLOBIN (test code = HGB) 8.2 g/dL 11.0-15.0 L HEMATOCRIT (test code = HCT) 27.2 % 33.0-45.0 L HGB [id number] 21:17:00 Test Item Value Reference Range Interpretation Comments HEMOGLOBIN (test code = HGB) 8.7 g/dL 11.0-15.0 L HEMATOCRIT (test code = HCT) 29.5 % 33.0-45.0 L HGB [id number] 14:06:00 Test Item Value Reference Range Interpretation Comments HEMOGLOBIN (test code = HGB) 7.5 g/dL 11.0-15.0 L HEMATOCRIT (test code = HCT) 24.9 % 33.0-45.0 L COMPREHENSIVE METABOLIC [id number] 05:37:00 Test Item Value Reference Range Interpretation [...] TOTAL (test code = ALKP) CBC W/AUTO [id number] 05:14:00 Test Item Value Reference Range Interpretation [...] REQUIRED (test code NO = MDIFF) URINALYSIS [id number] 00:32:00 Test Item Value Reference Range Interpretation [...] NONE SEEN SQU) COMMENTS: Clean CatchHEPATIC FUNCTION [id number] 22:36:00 Test Item Value Reference Range Interpretation [...] 77 IUnit/L 20-125 N code = ALKP) [id number] 22:36:00 Test Item Value Reference Range Interpretation Comments LIPASE (test code = LIP) 85 IUnit/L 73-393 N HCG SERUM [id number] 22:36:00 Test Item Value Reference Range Interpretation Comments HCG SERUM QUAL (test code = SERUM NEGATIVE NEGATIVE HCGQL) PROTHROMBIN [id number] 22:34:00 Test Item Value Reference Range Interpretation [...] (to prevent recurrent infar ct). THROMBOPLASTIN TIME [id number] 22:34:00 Test Item Value Reference Range Interpretation Comments THROMBOPLASTIN TIME 29.2 Seconds 25.0-39.5 N Therape utic Range: PARTIAL (test code = 61.8-83 .8 Sec PTT) Effective 11/07/2013 HEPATIC FUNCTION [id number] 22:34:00 Test Item Value Reference Range Interpretation Comments TOTAL PROTEIN (test code = PROT) g/dL 6.4-8.2 ALBUMIN (test code = ALB) g/dL 3.4-5.0 BILIRUBIN TOTAL (test code = BILT) mg/dL 0.0-1.0 BILIRUBIN DIRECT (test code = BILD) MG/DL 0.0-0.30 SGOT/AST (test code = AST) IUnit/L 15-37 SGPT/ALT (test code = ALT) IUnit/L 15-65 ALKALINE PHOSPHATASE TOTAL (test IUnit/L 20-125 code = ALKP) [id number] 22:34:00 Test Item Value Reference Range Interpretation Comments LIPASE (test code = LIP) IUnit/L 73-393 HCG SERUM [id number] 22:34:00 Test Item Value Reference Range Interpretation Comments HCG SERUM QUAL (test code = SERUM NEGATIVE NEGATIVE HCGQL) TROPONIN-I [id number] 22:24:00 Test Item Value Reference Range Interpretation Comments TROPONIN-I RAPID 0.00 ng/mL 0.00-0.08 N Performed b y certified (test code = hot car operator at [facility] TROPIRAP) [facility] [employer] with joint leadershi p from the EuropeanSociety of Cardiology (ESC ), the Spanish Colleg e of Cardiology Foun dation (ACCF), the [place] r[place] Heart Association(AHA ) and the World Heart Fed eration (WHF) refined p ast criteria of myocardial i nfarction (IN) with a uni versal definition of m yocardial infarction that supports the use of cTnI as a preferred bioma rker for myocardial inju ry. The universal defin ition of IN, according to is taskforce, is d efined [...] change s in troponin levels characteristic of IN. CBC W/AUTO [id number] 22:20:00 Test Item Value Reference Range Interpretation [...] (test code NO = MDIFF) CHEMISTRY 8 [id number] 22:16:00 Test Item Value Reference Range Interpretation [...] ML/MIN (test code = GFRBED) CHEMISTRY 8 [id number] 22:16:00 Test Item Value Reference Range Interpretation Comments ISTAT-SODIUM (test 133 MMOL/L 134-147 L code = NAP) ISTAT-POTASSIUM (test 4.1 MMOL/L 3.4-5.0 N code = KP) ISTAT-CHLORIDE (test 93 MMOL/L 100-108 L Perform ed by code = CLP) certified opera tor at [facility] ed Ctr ISTAT [...] ML/MIN RATE POC (test code = GFRBED) [id number] 16:23:00 Test Item Value Reference Range Interpretation Comments MAGNESIUM (BEAKER) (test code = 1.1 mg/dL 1.6-2.6 L 627) COMPREHENSIVE METABOLIC [id number] 16:23:00 Test Item Value Reference Range Interpretation [...] PATIEN TS. CBC W/PLT COUNT & AUTO [id number] 15:28:00 Test Item Value Reference Range Interpretation [...] = 2801) CBC W/PLT COUNT & AUTO [id number] 15:45:00 Test Item Value Reference Range Interpretation [...] MORPHOLOGY (BEAKER) (test code Normal = 762) [id number] 15:12:00 Test Item Value Reference Range Interpretation Comments MAGNESIUM (BEAKER) (test code = 1.6 mg/dL 1.6-2.6 627) COMPREHENSIVE METABOLIC [id number] 15:12:00 Test Item Value Reference Range Interpretation [...] S NOT APPLICABLE FOR DIALYSIS PATIEN TS. [id number] 14:59:00 Test Item Value Reference Range Interpretation Comments MAGNESIUM (BEAKER) (test code = 1.4 mg/dL 1.6-2.6 L 627) COMPREHENSIVE METABOLIC [id number] 14:59:00 Test Item Value Reference Range Interpretation [...] PATIEN TS. CBC W/PLT COUNT & AUTO [id number] 14:36:00 Test Item Value Reference Range Interpretation [...] CT, CHEST WITH IV CONTRAST- PE TEST [id number] 09:39:00FINAL REPORT TECHNIQUE: CT scan of the [...] MDReport Verified Date/Time: 09/09/2017 09:39:13 Reading Location: [facility] Diagnostic Imaging Reading Room [place] [address] Electronicallysigned by: RAMOS MAYER MD on 09/09/2017 09:39 [id number] 15:31:00 Test Item Value Reference Range Interpretation Comments MAGNESIUM (BEAKER) (test code = 1.9 mg/dL 1.6-2.6 627) COMPREHENSIVE METABOLIC [id number] 15:31:00 Test Item Value Reference Range Interpretation [...] PATIEN TS. CBC W/PLT COUNT & AUTO [id number] 14:31:00 Test Item Value Reference Range Interpretation [...] PERCENT (BEAKER) (test code = 2801) SCREEN, [id number] 18:41:00 Test Item Value Reference Range Interpretation Comments TEST URINE (BEAKER) (test Negative code = 583) [id number] 18:24:00 Test Item Value Reference Range Interpretation Comments MAGNESIUM (BEAKER) (test code = 1.8 mg/dL 1.6-2.6 627) COMPREHENSIVE METABOLIC [id number] 18:24:00 Test Item Value Reference Range Interpretation [...] PATIEN TS. CBC W/PLT COUNT & AUTO [id number] 17:54:00 Test Item Value Reference Range Interpretation [...] = 2801) CBC W/PLT COUNT & AUTO [id number] 15:45:00 Test Item Value Reference Range Interpretation [...] 0-1 PERCENT (BEAKER) (test code = 2801) COMPREHENSIVE METABOLIC [id number] 14:16:00 Test Item Value Reference Range Interpretation [...] S NOT APPLICABLE FOR DIALYSIS PATIEN TS. [id number] 14:16:00 Test Item Value Reference Range Interpretation Comments MAGNESIUM (BEAKER) (test code = 2.1 mg/dL 1.6-2.6 627)
[2022-06-26 13:00] LABS: Absolute Lymphocytes (CBC) 2.3 K/uL (0.7-4.9); Hematocrit 39.5 % (36.0-45.0); Lymphocytes % 38.8 % (15.3-44.8); MPV 7.8 fL (7.6-11.3); RBC Red Blood Cell Count 4.49 M/uL (3.86-4.86)
[2022-06-26 13:03] LABS: Protime INR 0.98
[2022-06-26 13:06] LABS: Albumin 3.8 g/dL (3.4-5.0); Bilirubin Total 0.3 mg/dL (0.2-1.0); Potassium 4.2 mmol/L (3.5-5.1); Protein, Total 8.2 g/dL (6.4-8.2)
[2022-06-26 13:14] LABS: Urine Blood 3+ (Negative); Urine Glucose Negative (Negative); Urine Protein 2+ (Negative)
[2022-06-26 13:32] LABS: Urine Mucus Slight /HPF (None Seen); Urine WBC Clump Rare /HPF (None Seen)
--- NOTE | 2022-06-26 13:47 | EDPHYS ---
Physician Documentation [facility] Name: Suze Saab Age: 47 yrs Sex: Female : 1975 Arrival Date: 06/26/2022 Time: 11:41 Bed 25 Private MD: ED Physician Janet Hairston HPI: 06/26 12:24 This 47 yrs old Female presents to ER via Ambulatory with complaints of blood in perez. sd2 12:24 47-year-old female presents with chief complaint of blood in her Perez catheter bag. sd2 She reports she first noticed that this morning with some spotting of blood in the urine and now it has become mostly bloody. She continues to have output from her Perez catheter and has only noticed one clot. She is not currently on any blood thinners. The Perez catheter was placed last week due to acute renal failure. She reports she was told that she has a mass pressing on her urethra which is why the catheter was left in place. She has not yet been able to follow-up with urology or urogynecology as she was told to. [facility]. She denies any significant pain associated with this change in urine color but has had some suprapubic cramping.. 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 LMP N/A - Hysterectomy kb3 Historical: - Allergies: 11:58 Azithromycin; iw - Home Meds: 11:58 gabapentin 400 mg oral cap 1 cap 3 times per day [Active]; meloxicam 15 mg oral tab 1 iw tab once daily [Active]; cyclobenzaprine 10 mg Oral tab 1 tab once daily [Active]; pravastatin 40 mg oral tab 1 tab once daily [Active]; bupropion HCl 150 mg Oral SR12 1 tab 2 times per day [Active]; dicyclomine 20 mg Oral tab 4 times per day [Active]; trazodone 50 mg Oral tab 1 tab once daily [Active]; docusate sodium 100 mg Oral tab 1 tab 2 times per day [Active]; ferrous gluconate 324 mg (36 mg iron) Oral tab daily [Active]; ziprasidone HCl 20 mg oral cap 1 cap 2 times per day [Active]; - PMHx: 11:58 cervical cancer; iw - PSHx: 11:58 cervical; Spinal; iw - Immunization history:: Adult Immunizations up to date, Client reports receiving the 2nd dose of the Covid vaccine, Last tetanus immunization: unknown. - Social history:: Smoking status: Patient denies any tobacco usage or history of. ROS: 12:24 Constitutional: Negative for fever, chills, and weight loss, Eyes: Negative for injury, sd2 pain, redness, and discharge, ENT: Negative for injury, pain, and discharge, Cardiovascular: Negative for chest pain, palpitations, and edema, Respiratory: Negative for shortness of breath, cough, wheezing. Abdomen/GI: Negative for abdominal pain, nausea, vomiting, diarrhea. Positive for lower abdominal cramping. : Negative for dysuria, urinary frequency, hesitancy, urgency. Positive for hematuria. MS/Extremity: Negative for injury and deformity, Skin: Negative for injury, rash, and discoloration, Neuro: Negative for headache, numbness and tingling. Exam: 12:24 Constitutional: This is a well developed, well nourished patient who is awake, alert, sd2 and in no acute distress. Head/Face: Normocephalic, atraumatic. Eyes: EOMI, normal conjunctiva bilaterally Chest/axilla: Normal chest wall appearance and motion. Nontender with no deformity. Cardiovascular: Regular rate and rhythm with a normal S1 and S2. No gallops, murmurs, or rubs. 2+ distal pulses. Respiratory: Lungs have equal breath sounds bilaterally, clear to auscultation and percussion. No rales, rhonchi or wheezes noted. No increased work of breathing, no retractions or nasal flaring. Abdomen/GI: Soft, non-tender, with normal bowel sounds. No guarding or rebound. No evidence of tenderness throughout. Female : Perez catheter in place with leg bag draining bloody appearing urine Skin: Warm, dry with normal turgor. Normal color with no rashes, no lesions, and no evidence of cellulitis. MS/ Extremity: Pulses equal, no cyanosis. Neurovascular intact. Full, normal range of motion. Ambulatory without difficulty. Psych: Awake, alert, with orientation to person, place and time. Behavior, mood, and affect are within normal limits. Vital Signs: 11:56 BP 123 / 86; Pulse 93; Resp 16; Pulse Ox 99% on R/A; Weight 93.44 kg; Height 5 ft. 4 iw in. (162.56 cm); 14:20 BP 107 / 61; Pulse 80; Resp 18; Pulse Ox 100% ; kb3 11:56 Body Mass Index 35.36 (93.44 kg, 162.56 cm) iw MDM: 12:10 Patient medically screened. sd2 12:24 Differential Diagnosis urinary retention, UTI, mass, anemia, coagulopathy among others. sd2 Data reviewed: vital signs, nurses notes, old medical records. 13:43 Data reviewed: lab test result(s). Counseling: I had a detailed discussion with the sd2 patient and/or guardian regarding: the historical points, exam findings, and any diagnostic results supporting the discharge/admit diagnosis, lab results, the need for outpatient follow up, to return to the emergency department if symptoms worsen or persist or if there are any questions or concerns that arise at home. Medical screen evaluation completed. EMTALA emergency medical condition absent. ED course: Catheter tubing changed out and patient immediately running clear even after irrigation and has continued to have good flow of urine without complication or difficulty. labs reviewed with no acute abnormalities. UA does show evidence of infection. Culture sent and IV Rocephin given. Pt to be discharged on Cefdinir. pt comfortable with plan for discharge and outpatient follow up and has plans in progress to follow up with Urology and [place] at the [place]. She verbalizes understanding of discharge plan and strict return precautions at this time.. 06/26 12:17 Order name: CBC with Diff; Complete Time: 13:13 06/26 12:17 Order name: CMP; Complete Time: 13:13 06/26 12:17 Order name: PT-INR; Complete Time: 13:13 06/26 12:17 Order name: Ptt, Activated; Complete Time: 13:13 06/26 12:17 Order name: Urine Microscopic Only; Complete Time: 13:33 06/26 12:17 Order name: Urine Culture 06/26 12:17 Order name: Urine Dipstick-Ancillary (obtain specimen); Complete Time: 13:09 06/26 12:17 Order name: Bladder Irrigation; Complete Time: 13:25 06/26 13:14 Order name: Urine Dipstick-Ancillary; Complete Time: 13:27 EDMS Administered Medications: 14:11 Drug: Rocephin (cefTRIAXone) 1 grams Route: IV; Rate: bolus; Site: left antecubital; kb3 14:13 Follow up: Response: No adverse reaction; IV Status: Completed infusion; IV Intake: [id number] Disposition Summary: 06/26/22 13:46 Discharge Ordered Location: Home sd2 Problem: new sd2 Symptoms: are resolved sd2 Condition: Stable sd2 Diagnosis - Hematuria, unspecified sd2 - UTI/ Urinary tract infection, site not specified sd2 - Complication of indwelling urinary catheter sd2 Followup: sd2 - With: Private Physician - When: 2 - 3 days - Reason: Recheck today's complaints, Continuance of care, Re-evaluation by your physician Discharge Instructions: - Discharge Summary Sheet sd2 - Indwelling Urinary Catheter Care, Adult sd2 - Urinary Tract Infection, Adult sd2 Forms: - Medication Reconciliation Form sd2 - Thank You Letter sd2 - Antibiotic Education sd2 - Prescription Opioid Use sd2 Prescriptions: - cefdinir 300 mg Oral capsule - take 1 capsule by ORAL route every 12 hours for 10 days; 20 capsule; Refills: sd2 0, Product Selection Permitted Signatures: Dispatcher [employer] Yesenia Huerta, RN NIDA iw Janet Hairston MD MD sd2 Magy hCang RN RN kb3
--- NOTE | 2022-06-26 13:47 | ER ---
Nurse's Notes [facility] Name: Suze Saab Age: 47 yrs Sex: Female : 1975 Arrival Date: 06/26/2022 Time: 11:41 Bed 25 Private MD: Diagnosis: Hematuria, unspecified;UTI/ Urinary tract infection, site not specified;Complication of indwelling urinary catheter Presentation: 06/26 11:56 Chief complaint: Patient states: has a perez due to a mass pressing against her iw urethra, there is blood in the bag , it is still draining but mary blood is noted in bag since today, also having some cramps. Coronavirus screen: At this time, the client does not indicate any symptoms associated with coronavirus-19. Ebola Screen: Patient negative for fever greater than or equal to 101.5 degrees Fahrenheit, and additional compatible Ebola Virus Disease symptoms Patient denies exposure to infectious person. Patient denies travel to an Ebola-affected area in the 21 days before illness onset. No symptoms or risks identified at this time. Initial Sepsis Screen: Does the patient meet any 2 criteria? No. Patient's initial sepsis screen is negative. Does the patient have a suspected source of infection? No. Patient's initial sepsis screen is negative. Risk Assessment: Do you want to hurt yourself or someone else? Patient reports no desire to harm self or others. Onset of symptoms was June 26, 2022. 11:56 Method Of Arrival: Ambulatory iw 11:56 Acuity: ANTON 3 iw DIRECTOR OF CAREER RESOURCES: 14:21 LMP N/A - Hysterectomy kb3 Historical: - Allergies: 11:58 Azithromycin; iw - Home Meds: 11:58 gabapentin 400 mg oral cap 1 cap 3 times per day [Active]; meloxicam 15 mg oral tab 1 iw tab once daily [Active]; cyclobenzaprine 10 mg Oral tab 1 tab once daily [Active]; pravastatin 40 mg oral tab 1 tab once daily [Active]; bupropion HCl 150 mg Oral SR12 1 tab 2 times per day [Active]; dicyclomine 20 mg Oral tab 4 times per day [Active]; trazodone 50 mg Oral tab 1 tab once daily [Active]; docusate sodium 100 mg Oral tab 1 tab 2 times per day [Active]; ferrous gluconate 324 mg (36 mg iron) Oral tab daily [Active]; ziprasidone HCl 20 mg oral cap 1 cap 2 times per day [Active]; - PMHx: 11:58 cervical cancer; iw - PSHx: 11:58 cervical; Spinal; iw - Immunization history:: Adult Immunizations up to date, Client reports receiving the 2nd dose of the Covid vaccine, Last tetanus immunization: unknown. - Social history:: Smoking status: Patient denies any tobacco usage or history of. Screenin:15 Abuse screen: Denies threats or abuse. Denies injuries from another. Nutritional kb3 screening: No deficits noted. Tuberculosis screening: No symptoms or risk factors identified. Fall Risk None identified. Assessment: 12:15 General: Appears in no apparent distress. comfortable, Behavior is calm, cooperative, kb3 Received care of pt from triage. Pt is AAO x4, reports minimal pain in suprapubic area but much improved since last week when pt was seen for abdominal pain, had an indwelling perez with leg bag placed, and diagnosed with pelvic tumor abutting urethra. Pt reports this morning when suddenly noticed blood with a small clot in her leg bag. Denies trauma. Pain: Complains of pain in suprapubic area Pain does not radiate. Pain currently is 3 out of 10 on a pain scale. Quality of pain is described as crampy, dull. : Perez in place to gravity drainage Urine is blood tinged. 12:30 General: Leg bag changed. Draining urine noted to be clear yellow.. kb3 Vital Signs: 11:56 BP 123 / 86; Pulse 93; Resp 16; Pulse Ox 99% on R/A; Weight 93.44 kg; Height 5 ft. 4 iw in. (162.56 cm); 14:20 BP 107 / 61; Pulse 80; Resp 18; Pulse Ox 100% ; kb3 11:56 Body Mass Index 35.36 (93.44 kg, 162.56 cm) iw ED Course: 11:41 Patient arrived in ED. am2 11:58 Triage completed. iw 12:00 Arm band placed on. iw 12:10 Janet Hairston MD is Attending Physician. sd2 12:10 Magy Chang, RN is Primary Nurse. kb3 12:15 Patient has correct armband on for positive identification. Bed in low position. Call kb3 light in reach. Side rails up X 1. 12:15 No provider procedures requiring assistance completed. kb3 12:40 Inserted saline lock: 22 gauge in left antecubital area, using aseptic technique. Blood kb3 collected. 12:51 Ptt, Activated Sent. kb3 12:51 PT-INR Sent. kb3 12:51 CMP Sent. kb3 12:51 CBC with Diff Sent. kb3 13:08 Urine Culture Sent. kb3 13:08 Urine Microscopic Only Sent. kb3 14:18 IV discontinued, intact, bleeding controlled, No redness/swelling at site. kb3 Administered Medications: 14:11 Drug: Rocephin (cefTRIAXone) 1 grams Route: IV; Rate: bolus; Site: left antecubital; kb3 14:13 Follow up: Response: No adverse reaction; IV Status: Completed infusion; IV Intake: [id number] Medication: 12:15 VIS not applicable for this client. kb3 Intake: 14:13 IV: 10ml; Total: 10ml. kb3 Outcome: 13:46 Discharge ordered by . sd2 14:22 Discharged to home ambulatory. kb3 14:22 Condition: stable 14:22 Discharge instructions given to patient, Instructed on discharge instructions, follow up and referral plans. medication usage, Demonstrated understanding of instructions, follow-up care, medications, Prescriptions given X 1. 14:23 Patient left the ED. kb3 Signatures: Yesenia Landrum, RN RN Abbey Snow am2 Janet Hairston MD MD sd2 Magy Chang RN RN kb3 Corrections: (The following items were deleted from the chart) 12:55 12:52 General: Appears in no apparent distress. comfortable, Behavior is calm, kb3 cooperative, Received care of pt from triage. Pt is AAO x4, reports minimal pain in suprapubic area but much improved since last week when pt was seen for abdominal pain, had an indwelling perez with leg bag placed, and diagnosed with pelvic tumor abutting urethra. Pt reports this morning when suddenly noticed blood with a small clot in her leg bag. Denies trauma. kb3 12:55 12:52 Pain: Complains of pain in suprapubic area Pain does not radiate. Pain currently kb3 is 3 out of 10 on a pain scale. Quality of pain is described as crampy, dull, kb3 12:55 12:52 : Perez in place to gravity drainage Urine is blood tinged, kb3 kb3
[2022-06-26] MEDS ORDERED: CEFTRIAXONE 1000 MG/VIAL ONE (14:15)
[2022-06-27 23:28] VITALS: BP 107/61; O2SAT 100
== END 2022-06-26 14:23 | disposition home or self-care (01) ==
LOC: ER 11:37
DX: N39.0 Urinary tract infection, site not specified (principal); T83.098A Other mechanical complication of other urinary catheter, initial encounter
CPT/HCPCS: 36415; 80053; 81003; 81015; 85025; 85610; 85730; 87077; 87086; 87088; 87186; 96374; 99284

== ENCOUNTER 2022-08-08 13:50 | Emergency (ER) | payer OTHER ==
--- OUTSIDE RECORDS SUMMARY | 2022-08-08 14:00 | XMS REPORT | Continuity of Care Document ---
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 (test code = 97 mg/dL 70-99 2345-7) BUN (test code = 7 mg/dL 6-24 3094-0) Creatinine (test code 0.98 mg/dL 0.57-1.00 = 2160-0) eGFR (test code = 73 mL/min/1.73 See_Comment [Automa adriana 8257) message] The system which generated this result transmitted reference range : >=59. The reference range was not used to interpret this result as normal/abnormal . BUN/creatinine ratio 9-23 L (test code = 3097-3) Sodium (test code = 140 mmol/L 841-563 9103-2) Potassium (test code 5.2 mmol/L 3.5-5.2 = 2823-3) Chloride (test code = 100 mmol/L 96-106 2075-0) CO2 (test code = 24 mmol/L 20-29 8-9) Calcium (test code = 9.6 mg/dL 8.7-10.2 73954-8) JEAN (test code = JEAN) Performed at: [facility] [place], [place] [address]Xez Director: Elijah Wilcox MD, Phone: [phone] Lab Interpretation Abnormal (test code = 89963-7) [facility] with platelet and kcjusvbbywic6394-77-70 13:15:00 Test Item Value Reference Range Interpretation Comments WBC (test code = See_Comment [Automated 6441-2) message] The system which generated this result transmit adriana reference range : 3.4 - 10.8 x10E3/uL. The reference range was not used to interpret this result as normal/abnormal . RBC (test code = See_Comment [Automated 297-8) message] The system which generated this result transmit adriana reference range : 3.77 - 5.28 x10E6/uL. The reference range was not used to interpret this result as normal/abnormal . HGB (test code = 11.4 g/dL 11.1-15.9 718-7) HCT (test code = 35.6 % 34.0-46.6 4544-3) MCV (test code = 90 fL 79-97 787-2) MCH (test code = 28.7 pg 26.6-33.0 785-6) MCHC (test code = 32.0 g/dL 31.5-35.7 786-4) RDW (test code = 12.7 % 11.7-15.4 788-0) Platelet count See_Comment [Automated (test code = 077-3) message] The system which generated this result transmit adriana reference range : 150 - 450 x10E3/uL. The reference range was not used to interpret this result as normal/abnormal . Neutrophils (test 49 % Not Estab. code = 770-8) Lymphocytes (test 38 % Not Estab. code = 736-9) Monocytes (test 8 % Not Estab. code = 5905-5) Eosinophils (test 4 % Not Estab. code = 713-8) Basophils (test 1 % Not Estab. code = 706-2) Neutrophils, See_Comment [Automated absolute (test code message] The = 751-8) system which generated this result transmit adriana reference range : 1.4 - 7.0 x10E3/uL. The reference range was not used to interpret this result as normal/abnormal . Lymphocytes, See_Comment [Automated absolute (test code message] The = 731-0) system which generated this result transmit adriana reference range : 0.7 - 3.1 x10E3/uL. The reference range was not used to interpret this result as normal/abnormal . Monocytes, absolute See_Comment [Automa adriana (test code = 742-7) message] The system which generated this result transmit adriana reference range : 0.1 - 0.9 x10E3/uL. The reference range was not used to interpret this result as normal/abnormal . Eosinophils, See_Comment [Automated absolute (test code message] The = 711-2) system which generated this result transmit adriana reference range : 0.0 - 0.4 x10E3/uL. The reference range was not used to interpret this result as normal/abnormal . Basophils, absolute See_Comment [Automa adriana (test code = 704-7) message] The system which generated this result transmit adriana reference range : 0.0 - 0.2 x10E3/uL. The reference range was not used to interpret this result as normal/abnormal . Immature 0 % Not Estab. granulocytes (test code = 91082-1) Immature See_Comment [Automated granulocytes, message] The absolute (test code system w [facility] = 72955-5) generated this result transmit adriana reference range : 0.0 - 0.1 x10E3/uL. The reference range was not used to interpret this result as normal/abnormal . JEAN (test code = Performed at: JEAN) - [facility] [address] [place], [place] [address]Mcq Director: Elijah Wilcox MD, Phone: [phone] [facility] metabolic [id number] 13:15:00 Test Item Value Reference Range Interpretation Comments Glucose (test code = 97 mg/dL 70-99 2345-7) BUN (test code = 7 mg/dL 6-24 3094-0) Creatinine (test code 0.98 mg/dL 0.57-1.00 = 2160-0) eGFR (test code = 73 mL/min/1.73 See_Comment [Automa adriana 8257) message] The system which generated this result transmitted reference range : >=59. The reference range was not used to interpret this result as normal/abnormal . BUN/creatinine ratio 9-23 L (test code = 3097-3) Sodium (test code = 140 mmol/L 955-787 0178-2) Potassium (test code 5.2 mmol/L 3.5-5.2 = 2823-3) Chloride (test code = 100 mmol/L 96-106 2075-0) CO2 (test code = 24 mmol/L -8-9) Calcium (test code = 9.6 mg/dL 8.7-10.2 70702-3) JEAN (test code = JEAN) Performed at: [facility] [id number] Director: Elijah Wilcox MD, Phone: [phone] Lab Interpretation Abnormal (test code = 62609-8) [facility] with platelet and ajevpabanubs4634-76-97 13:15:00 Test Item Value Reference Range Interpretation Comments WBC (test code = See_Comment [Automated 0506-2) message] The system which generated this result transmit adriana reference range : 3.4 - 10.8 x10E3/uL. The reference range was not used to interpret this result as normal/abnormal . RBC (test code = See_Comment [Automated 771-8) message] The system which generated this result transmit adriana reference range : 3.77 - 5.28 x10E6/uL. The reference range was not used to interpret this result as normal/abnormal . HGB (test code = 11.4 g/dL 11.1-15.9 718-7) HCT (test code = 35.6 % 34.0-46.6 4544-3) MCV (test code = 90 fL 79-97 787-2) MCH (test code = 28.7 pg 26.6-33.0 785-6) MCHC (test code = 32.0 g/dL 31.5-35.7 786-4) RDW (test code = 12.7 % 11.7-15.4 788-0) Platelet count See_Comment [Automated (test code = 777-3) message] The system which generated this result transmit adriana reference range : 150 - 450 x10E3/uL. The reference range was not used to interpret this result as normal/abnormal . Neutrophils (test 49 % Not Estab. code = 770-8) Lymphocytes (test 38 % Not Estab. code = 736-9) Monocytes (test 8 % Not Estab. code = 5905-5) Eosinophils (test 4 % Not Estab. code = 713-8) Basophils (test 1 % Not Estab. code = 706-2) Neutrophils, See_Comment [Automated absolute (test code message] The = 751-8) system which generated this result transmit adriana reference range : 1.4 - 7.0 x10E3/uL. The reference range was not used to interpret this result as normal/abnormal . Lymphocytes, See_Comment [Automated absolute (test code message] The = 731-0) system which generated this result transmit adriana reference range : 0.7 - 3.1 x10E3/uL. The reference range was not used to interpret this result as normal/abnormal . Monocytes, absolute See_Comment [Automa adriana (test code = 742-7) message] The system which generated this result transmit adriana reference range : 0.1 - 0.9 x10E3/uL. The reference range was not used to interpret this result as normal/abnormal . Eosinophils, See_Comment [Automated absolute (test code message] The = 711-2) system which generated this result transmit adriana reference range : 0.0 - 0.4 x10E3/uL. The reference range was not used to interpret this result as normal/abnormal . Basophils, absolute See_Comment [Automa adriana (test code = 704-7) message] The system which generated this result transmit adriana reference range : 0.0 - 0.2 x10E3/uL. The reference range was not used to interpret this result as normal/abnormal . Immature 0 % Not Estab. granulocytes (test code = 75857-7) Immature See_Comment [Automated granulocytes, message] The absolute (test code system w [facility] [place] = 77834-2) generated this result transmit adriana reference range : 0.0 - 0.1 x10E3/uL. The reference range was not used to interpret this result as normal/abnormal . JEAN (test code = Performed at: 01 JEAN) - [facility] [address] [place], [place] [id number] Director: Elijah Wilcox MD, Phone: [phone] [facility] GC DNA BY [id number] 14:16:00 Test Item Value Reference Range Interpretation Comments C. TRACHOMATIS DNA BY Negative Negative PCR (test code = CHLAMTDNA) N. GONORRHOEAE DNA BY Negative Negative Perfor med At: ST PCR (test code = [facility] NGONORDNA) [address] [place], [place] [address]PgqbnnRitter [place] PLASENCIA Ph:[phone] USED UA SPECIMEN- US RETRO [id number] 03:15:00 Name: EVA SAAB [facility] : 1975 Age/S: 43 / F [address] [place] [address] Unit #: [id number] Loc: [place] [address] Phys: Jay Bhakta MD Acct: [id number] Dis Date: Status: REG ER PHONE #: [phone] Exam Date: 12/16/2018 004 FAX #: [phone] Reason: possible hematuria EXAMS: CPT CODE: [id number] US RETRO LTD 93473 PROCEDURE: RENAL/LIMITED RETROPERITONEAL ULTRASOUND DATED 12/17/2018. INDICATION: [...] PAGE 1 Signed Report (CONTINUED) [facility] 1975 Age/S: 43 / F [address] [place] [address] Unit #: [id number] Loc: [place] [address] Phys: Jay Bhakta MD Acct: [id number] Dis Date: Status: REG ER PHONE #: [phone] Exam Date: 12/16/2018 0041 FAX #: [phone] Reason: possible hematuria EXAMS: CPT CODE: [id number] RETRO LTD 51105 (Continued) at 0315 Reported and signed by: Pablo Fitzgerald M.D. CC: Jay Bhakta MD Technologist: Martina Larsen RDMS(A) Trnscb Date/Time: 12/17/2018 (314) tDAMON Orig Print D/T: S: 12/17/2018 (317) Probe: PAGE 2 Signed Report- US PELVIS [id number] 03:10:00 Name: EVA SAAB [facility] : 1975 Age/S: 43 / F [address] [place] [address] Unit #: [id number] Loc: [place] [address] Phys: Jay Bhakta MD Acct: [id number] Dis Date: Status: REG ER PHONE #: [phone] Exam Date: 12/16/2018103 FAX #: [phone] Reason: Pelvic Pain EXAMS: CPT CODE: [id number] US PELVIS COMPLETE 39765 Pelvic and transvaginal ultrasound dated 12/17/2018. HISTORY: [...] M.D. CC: Jay Bhakta MDTechnologist: Martina Larsen RDMS(Nelson) Trnscb Date/Time: 12/17/2018 (309) Chris Orig Print D/T: S: 12/17/2018 (0313) Probe: PAGE 1 Signed Report- US TRANSVAGINAL NON [id number] 03:10:00 Name: EVA SAAB [facility] : 1975 Age/S: 43 / F [address] [place] [address] Unit #: [id number] Loc: [place] [address] Phys: Jay Bhakta MD Acct: [id number] Dis Date: Status: REG ER PHONE #: [phone] Exam Date: 12/16/2018103 FAX #: [phone] Reason: Pelvic Pain EXAMS: CPT CODE: [id number] [place] [address] Pelvic and transvaginal ultrasound dated 12/17/2018. HISTORY: [...] CC: Jay Bhakta MD Technologist: Martina Larsen RDMS(Nelson) Trnscb Date/Time: 12/17/2018 (309) Chris Orig Print D/T: S: 12/17/2018 (312) Probe: [id number] PAGE 1 Signed ReportBASI METABOLIC [id number] 00:38:00 Test Item Value Reference Range Interpretation [...] 9.2 mg/dL 8.0-10.5 N CA) HEPATIC FUNCTION [id number] 00:38:00 Test Item Value Reference Range Interpretation [...] 68 IUnit/L 20-125 N code = ALKP) [id number] 00:38:00 Test Item Value Reference Range Interpretation Comments LIPASE (test code = LIP) 83 IUnit/L 73-393 N BASIC METABOLIC [id number] 00:36:00 Test Item Value Reference Range Interpretation [...] 9.2 mg/dL 8.0-10.5 N CA) HEPATIC FUNCTION [id number] 00:36:00 Test Item Value Reference Range Interpretation [...] TOTAL (test IUnit/L 20-125 code = ALKP) [id number] 00:36:00 Test Item Value Reference Range Interpretation Comments LIPASE (test code = LIP) 83 IUnit/L 73-393 N CBC W/AUTO [id number] 00:35:00 Test Item Value Reference Range Interpretation [...] (test code NO = MDIFF) HCG SERUM [id number] 00:30:00 Test Item Value Reference Range Interpretation Comments HCG SERUM QUAL (test code = SERUM NEGATIVE NEGATIVE HCGQL) URINALYSIS [id number] 23:20:00 Test Item Value Reference Range Interpretation [...] /HPF NONE SEEN SQU) COMMENTS: Clean CatchURINALYSIS [id number] 23:17:00 Test Item Value Reference Range Interpretation [...] RBCU) RBC/HPF 0-3 COMMENTS: Clean CatchBASIC METABOLIC [id number] 07:59:00 Test Item Value Reference Range Interpretation [...] 8.7 mg/dL 8.0-10.5 N CA) CBC W/AUTO [id number] 07:26:00 Test Item Value Reference Range Interpretation [...] (test code NO = MDIFF) BASIC METABOLIC [id number] 07:32:00 Test Item Value Reference Range Interpretation [...] 8.4 mg/dL 8.0-10.5 N CA) CBC W/AUTO [id number] 07:10:00 Test Item Value Reference Range Interpretation [...] REQUIRED (test code NO = MDIFF) VITAMIN B6/[id number] 04:09:00 Test Item Value Reference Range Interpretation Comments VITAMIN 18.7 ug/L 2.0-32.8 This test was d eveloped and its B6/PYRIDOXINE performance (test code = characteristics determined by VITB6) [facility]. It has not been cleared orappro jackelyn by the Food and Drug Administration. Performed At: [facility] [id number] ra Leena PLASENCIA Ph:[phone] CBC W/AUTO [id number] 08:04:00 Test Item Value Reference Range Interpretation [...] (test code NO = MDIFF) BASIC METABOLIC [id number] 07:54:00 Test Item Value Reference Range Interpretation [...] 8.8 mg/dL 8.0-10.5 N CA) CBC W/AUTO [id number] 08:06:00 Test Item Value Reference Range Interpretation [...] (test code NO = MDIFF) BASIC METABOLIC [id number] 07:57:00 Test Item Value Reference Range Interpretation [...] 8.9 mg/dL 8.0-10.5 N CA) CBC W/AUTO [id number] 09:46:00 Test Item Value Reference Range Interpretation [...] (test code NO = MDIFF) BASIC METABOLIC [id number] 08:25:00 Test Item Value Reference Range Interpretation [...] 8.5 mg/dL 8.0-10.5 N CA) CBC W/AUTO [id number] 08:14:00 Test Item Value Reference Range Interpretation [...] (test code NO = MDIFF) BASIC METABOLIC [id number] 08:10:00 Test Item Value Reference Range Interpretation [...] = 8.7 mg/dL 8.0-10.5 N CA) URIC [id number] 15:10:00 Test Item Value Reference Range Interpretation Comments URIC ACID (test code = URIC) 3.8 mg/dL 2.6-7.2 N [id number] 15:10:00 Test Item Value Reference Range Interpretation Comments MAGNESIUM (test code = MAG) 2.10 mg/dL 1.8-2.4 N SERUM [id number] 15:10:00 Test Item Value Reference Range Interpretation Comments SERUM IRON (test code = IRON) 92 mcg/dL 35-150 N VITAMIN [id number] 15:10:00 Test Item Value Reference Range Interpretation Comments VITAMIN B12 (test code = VITB12) 1042 pg/mL 193-986 H THYROID STIMULATING [id number] 15:10:00 Test Item Value Reference Range Interpretation Comments THYROID STIMULATING 0.81 0.42-5.47 N Results in HORMONE (test code = TSH) mi lli-International Units/mL VALPROIC ACID (DEPAKENE)2018-12-02 15:10:00 Test Item Value Reference Range Interpretation Comments VALPROIC ACID (DEPAKENE) (test code 31 mcg/mL 50.0-100.0 L = VALP) VITAMIN [id number] 15:10:00 Test Item Value Reference Range Interpretation [...] and i ts performance characteristics determined by [employer]. It has not been cleared orappro jackelyn by the Food and Drug Administration. Performed At: [facility] [place], [place] [id number] ra Leena PLASENCIA Ph:[phone] SURGICAL [id number] 10:02:00 RUN DATE: 12/02/18 [facility] *LIVE* PAGE 1 RUN TIME: 1002 Specimen Inquiry RUN USER: INTERFACE -------- ----PATIENT: EVA SAAB LOC: [place] U #: [id number] AGE/SX: 43/F ROOM: [facility] RE11/26/[facility] DR: Mikael Borden MD : 79 BED: 1 DIS: STATUS: ADM IN TLOC: SPEC #: [id number] RECD: 11/30/18 STATUS: KVNG RE #: [id number] ROBERT: 11/30/[address] [facility] [address]: Mikael Borden MD ENTERED: 12/02/18 SP TYPE: SURG SPEC OTHR DR: Self Referred Maximiliano Mccabe MD, Jyoti MD Undefined Provider Fredi Barnes MDORDERED: GM LEVEL 4 CODES: [id number] - RECTUM, NOS COPIES TO: Self Referred Maximiliano Mccabe MD [address] [place], [place] [id number] Mikael Borden MD [address] [place] [address] Magda Walker MD [address] [address] Undefined Provider Fredi Barnes MD [address] [facility] [address] [address] PROCEDURES: GM LEVEL 4 (Incomplete) TISSUES: 1. RECTUM, NOS - Rectum, bx. FINAL DIAGNOSIS Rectum, bx.: Mild acute and chronic proctitis. CONTINUED ON NEXT PAGE RUN DATE: 12/02/18 [facility] *LIVE* PAGE 2 RUN TIME: 1001 Specimen Inquiry RUN USER: INTERFACE SPEC #: [id number] PATIENT: EVA SAAB #[id number] (Continued) GROSS AND MICROSCOPIC GROSS EXAMINATION: Received [...] 12/02/18 1002 END OF REPORT BASIC METABOLIC [id number] 08:58:00 Test Item Value Reference Range Interpretation [...] 8.6 mg/dL 8.0-10.5 N CA) CBC W/AUTO [id number] 08:00:00 Test Item Value Reference Range Interpretation [...] (test code NO = MDIFF) PROTEIN ELECTROPHORESIS [id number] 15:18:00 Test Item Value Reference Range Interpretation Comments TOTAL PROTEIN 6.1 g/dL 6.0-8.5 (test code = PROTE) ALBUMIN (test 2.7 g/dL 2.9-4.4 A code = ALBE) IBTJD-6-BHMGKDPP 0.3 g/dL 0.0-0.4 (test code = A1G) EHHEE-6-IWYNHGKR 0.9 g/dL 0.4-1.0 (test code = A2G) [...] otein is not apparent.Perfor med At: [facility] [address] [place], [place] [address] Elijah Black MD Ph:[phone] rform ed At: [facility] [address] [facility] [address] [place]PL[place], [place] [address]Aorwwd h CN MD Ph:[phone] LACTIC DEHYDROGENASE(LDH)2018-12-01 15:18:00 Test Item Value Reference Range Interpretation Comments LACTIC DEHYDROGENASE(LDH) (test 207 IUnits/L 84-246 N code = LDH) TOTAL IRON BINDING [id number] 15:18:00 Test Item Value Reference Range Interpretation Comments SERUM IRON (test code = IRON) 28 mcg/dL 35-150 L TOTAL IRON BINDING CAPACITY (test 198 mcg/dL 260-445 L code = TIBC) UIBC (test code = UIBC) 170 mcg/dL IRON SATURATION (test code = 14.1 % 14-34 N FESAT) [id number] 15:18:00 Test Item Value Reference Range Interpretation Comments FERRITIN (test code = MARVA) 166.2 ng/mL 11.0-306.8 N VITAMIN D 1,18-[id number] 12:13:00 Test Item Value Reference Range Interpretation Comments VITAMIN D 51.3 pg/mL 19.9-79.3 Performed At: B N 1,25-DIHYDROXY (test [facility] Jvrhlahphg2939 code = TEHX996) TWIN [place]row [id number] sg Stern MD Ph:[phone] CBC W/AUTO [id number] 08:13:00 Test Item Value Reference Range Interpretation [...] (test code NO = MDIFF) BASIC METABOLIC [id number] 07:50:00 Test Item Value Reference Range Interpretation [...] 8.3 mg/dL 8.0-10.5 N CA) BASIC METABOLIC [id number] 07:49:00 Test Item Value Reference Range Interpretation [...] 8.1 mg/dL 8.0-10.5 N CA) CBC W/AUTO [id number] 07:29:00 Test Item Value Reference Range Interpretation [...] DIFF REQUIRED (test code NO = MDIFF) [id number] 07:27:00 Test Item Value Reference Range Interpretation Comments HAPTOGLOBIN (test code 192 mg/dL 34-200 Perfo rmed At: BN = HAPT) [facility] [id number] ra Leena PLASENCIA Ph:[phone] BASIC METABOLIC [id number] 08:41:00 Test Item Value Reference Range Interpretation [...] 8.1 mg/dL 8.0-10.5 N CA) CBC W/AUTO [id number] 08:07:00 Test Item Value Reference Range Interpretation [...] (test code NO = MDIFF) UA CULT [id number] 15:35:00 Test Item Value Reference Range Interpretation Comments UA WBC (test code 4-9 WBC/HPF 0-3 A = WBCU) UA SQUAMOUS CELLS 0-5 /HPF NONE SEEN (test code = SQU) UA CULTURE NEEDED? NO, WBC<10 Culture Chk Criteria not met, (test code = Criteria Urine Culture UACULT) cancelled. URIC [id number] 15:28:00 Test Item Value Reference Range Interpretation Comments URIC ACID (test code = URIC) 3.8 mg/dL 2.6-7.2 N [id number] 15:28:00 Test Item Value Reference Range Interpretation Comments MAGNESIUM (test code = MAG) 2.10 mg/dL 1.8-2.4 N SERUM [id number] 15:28:00 Test Item Value Reference Range Interpretation Comments SERUM IRON (test code = IRON) 92 mcg/dL 35-150 N VITAMIN [id number] 15:28:00 Test Item Value Reference Range Interpretation Comments VITAMIN B12 (test code = VITB12) 1042 pg/mL 193-986 H THYROID STIMULATING [id number] 15:28:00 Test Item Value Reference Range Interpretation Comments THYROID STIMULATING 0.81 0.42-5.47 N Results in HORMONE (test code = TSH) mi lli-International Units/mL VALPROIC ACID (DEPAKENE)2018-11-28 15:28:00 Test Item Value Reference Range Interpretation Comments VALPROIC ACID (DEPAKENE) (test code 31 mcg/mL 50.0-100.0 L = VALP) VITAMIN [id number] 15:28:00 Test Item Value Reference Range Interpretation Comments VITAMIN A (test code = MICHELLE) HGBA1C%2018-11-28 15:13:00 Test Item Value Reference Range Interpretation Comments HGBA1C% (test code = HGBA1C%) < 3.5 %A1C 4.8-6.0 L HGB [id number] 14:43:00 Test Item Value Reference Range Interpretation Comments HEMOGLOBIN (test code = HGB) 7.8 g/dL 11.0-15.0 L HEMATOCRIT (test code = HCT) 26.0 % 33.0-45.0 L HCG SERUM [id number] 08:47:00 Test Item Value Reference Range Interpretation Comments HCG SERUM QUAL (test code = SERUM NEGATIVE NEGATIVE HCGQL) CBC W/AUTO [id number] 08:40:00 Test Item Value Reference Range Interpretation [...] 5.0 % 0.3-2.3 H RETICA) COMPREHENSIVE METABOLIC [id number] 08:24:00 Test Item Value Reference Range Interpretation [...] TOTAL (test code = ALKP) PROTEIN ELECTROPHORESIS [id number] 08:18:00 Test Item Value Reference Range Interpretation Comments TOTAL PROTEIN (test code = PROTE) ALBUMIN (test code = ALBE) SIALX-5-BXAFVMTT (test code = A1G) GCEMX-1-BQMTWJIN (test code = A2G) BETA GLOBULIN (test code = BG) GAMMA GLOBULIN (test code = GG) M-SPIKE,SERUM (test code = MSPIKES) GLOBULIN ELECT (test code = GLOBE) ALBUMIN/GLOBULIN RATIO (test code = AGE) PROT.ELECTROPH.INTERPRETATION (test code = ELEINT) LACTIC DEHYDROGENASE(LDH)2018-11-28 08:18:00 Test Item Value Reference Range Interpretation Comments LACTIC DEHYDROGENASE(LDH) (test 207 IUnits/L 84-246 N code = LDH) TOTAL IRON BINDING [id number] 08:18:00 Test Item Value Reference Range Interpretation Comments SERUM IRON (test code = IRON) 28 mcg/dL 35-150 L TOTAL IRON BINDING CAPACITY (test 198 mcg/dL 260-445 L code = TIBC) UIBC (test code = UIBC) 170 mcg/dL IRON SATURATION (test code = 14.1 % 14-34 N FESAT) [id number] 08:18:00 Test Item Value Reference Range Interpretation Comments FERRITIN (test code = MARVA) 166.2 ng/mL 11.0-306.8 N THROMBOPLASTIN TIME [id number] 06:17:00 Test Item Value Reference Range Interpretation Comments THROMBOPLASTIN TIME 28.9 Seconds 25.0-39.5 N Therape utic Range: PARTIAL (test code = 61.8-83 .8 Sec PTT) Effective 11/07/2013 HGB [id number] 00:56:00 Test Item Value Reference Range Interpretation Comments HEMOGLOBIN (test code = HGB) 8.2 g/dL 11.0-15.0 L HEMATOCRIT (test code = HCT) 27.2 % 33.0-45.0 L HGB [id number] 21:17:00 Test Item Value Reference Range Interpretation Comments HEMOGLOBIN (test code = HGB) 8.7 g/dL 11.0-15.0 L HEMATOCRIT (test code = HCT) 29.5 % 33.0-45.0 L HGB [id number] 14:06:00 Test Item Value Reference Range Interpretation Comments HEMOGLOBIN (test code = HGB) 7.5 g/dL 11.0-15.0 L HEMATOCRIT (test code = HCT) 24.9 % 33.0-45.0 L COMPREHENSIVE METABOLIC [id number] 05:37:00 Test Item Value Reference Range Interpretation [...] TOTAL (test code = ALKP) CBC W/AUTO [id number] 05:14:00 Test Item Value Reference Range Interpretation [...] REQUIRED (test code NO = MDIFF) URINALYSIS [id number] 00:32:00 Test Item Value Reference Range Interpretation [...] NONE SEEN SQU) COMMENTS: Clean CatchHEPATIC FUNCTION [id number] 22:36:00 Test Item Value Reference Range Interpretation [...] 77 IUnit/L 20-125 N code = ALKP) [id number] 22:36:00 Test Item Value Reference Range Interpretation Comments LIPASE (test code = LIP) 85 IUnit/L 73-393 N HCG SERUM [id number] 22:36:00 Test Item Value Reference Range Interpretation Comments HCG SERUM QUAL (test code = SERUM NEGATIVE NEGATIVE HCGQL) PROTHROMBIN [id number] 22:34:00 Test Item Value Reference Range Interpretation Comments PROTHROMBIN TIME 13.1 SECONDS 9.3-12.9 H PATIENT (test code = PTP) INTERNATIONAL NORMAL 1.2 0.8-1.2 N TARGET INR BY RATIO (test code = INDICATIO N Indication INR) INR1. Prophylax is of venous thrombos is 2.0 - 3.0 (orthope dic surgery), Proph ylaxis of venous throm bosis [...] (to prevent recurrent infar ct). THROMBOPLASTIN TIME [id number] 22:34:00 Test Item Value Reference Range Interpretation Comments THROMBOPLASTIN TIME 29.2 Seconds 25.0-39.5 N Therape utic Range: PARTIAL (test code = 61.8-83 .8 Sec PTT) Effective 11/07/2013 HEPATIC FUNCTION [id number] 22:34:00 Test Item Value Reference Range Interpretation Comments TOTAL PROTEIN (test code = PROT) g/dL 6.4-8.2 ALBUMIN (test code = ALB) g/dL 3.4-5.0 BILIRUBIN TOTAL (test code = BILT) mg/dL 0.0-1.0 BILIRUBIN DIRECT (test code = BILD) MG/DL 0.0-0.30 SGOT/AST (test code = AST) IUnit/L 15-37 SGPT/ALT (test code = ALT) IUnit/L 15-65 ALKALINE PHOSPHATASE TOTAL (test IUnit/L 20-125 code = ALKP) [id number] 22:34:00 Test Item Value Reference Range Interpretation Comments LIPASE (test code = LIP) IUnit/L 73-393 HCG SERUM [id number] 22:34:00 Test Item Value Reference Range Interpretation Comments HCG SERUM QUAL (test code = SERUM NEGATIVE NEGATIVE HCGQL) TROPONIN-I [id number] 22:24:00 Test Item Value Reference Range Interpretation Comments TROPONIN-I RAPID 0.00 ng/mL 0.00-0.08 N Performed b y certified (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 [employer] with joint leadershi p from the EuropeanSociety of Cardiology (ESC ), the [place] [employer] e [employer] Foun dation (ACCF), the [place] r[place] Heart Association(AHA ) and the World Heart Fed eration (WHF) refined p ast criteria of myocardial i nfarction (OR) with a uni versal definition of m yocardial infarction that supports the use of cTnI as a preferred bioma rker for myocardial inju ry. The universal defin ition of OR, according to is taskforce, is d efined [...] change s in troponin levels characteristic of OR. CBC W/AUTO [id number] 22:20:00 Test Item Value Reference Range Interpretation [...] (test code NO = MDIFF) CHEMISTRY 8 [id number] 22:16:00 Test Item Value Reference Range Interpretation [...] ML/MIN (test code = GFRBED) CHEMISTRY 8 [id number] 22:16:00 Test Item Value Reference Range Interpretation Comments ISTAT-SODIUM (test 133 MMOL/L 134-147 L code = NAP) ISTAT-POTASSIUM (test 4.1 MMOL/L 3.4-5.0 N code = KP) ISTAT-CHLORIDE (test 93 MMOL/L 100-108 L Perform ed by code = CLP) certified jayesha tor at [facility] ed Ctr [...] ML/MIN RATE POC (test code = GFRBED) [id number] 16:23:00 Test Item Value Reference Range Interpretation Comments MAGNESIUM (BEAKER) (test code = 1.1 mg/dL 1.6-2.6 L 627) COMPREHENSIVE METABOLIC [id number] 16:23:00 Test Item Value Reference Range Interpretation [...] PATIEN TS. CBC W/PLT COUNT & AUTO [id number] 15:28:00 Test Item Value Reference Range Interpretation [...] = 2801) CBC W/PLT COUNT & AUTO [id number] 15:45:00 Test Item Value Reference Range Interpretation [...] MORPHOLOGY (BEAKER) (test code Normal = 762) [id number] 15:12:00 Test Item Value Reference Range Interpretation Comments MAGNESIUM (BEAKER) (test code = 1.6 mg/dL 1.6-2.6 627) COMPREHENSIVE METABOLIC [id number] 15:12:00 Test Item Value Reference Range Interpretation [...] S NOT APPLICABLE FOR DIALYSIS PATIEN TS. [id number] 14:59:00 Test Item Value Reference Range Interpretation Comments MAGNESIUM (BEAKER) (test code = 1.4 mg/dL 1.6-2.6 L 627) COMPREHENSIVE METABOLIC [id number] 14:59:00 Test Item Value Reference Range Interpretation [...] PATIEN TS. CBC W/PLT COUNT & AUTO [id number] 14:36:00 Test Item Value Reference Range Interpretation [...] CT, CHEST WITH IV CONTRAST- PE TEST [id number] 09:39:00FINAL REPORT TECHNIQUE: CT scan of the [...] MDReport Verified Date/Time: 09/09/2017 09:39:13 Reading Location: [facility] Diagnostic Imaging Reading Room - [place] [address] Electronicallysigned by: RAMOS MAYER MD on 09/09/2017 09:39 AMCOMPREHENSIVE METABOLIC [id number] 15:31:00 Test Item Value Reference Range Interpretation [...] S NOT APPLICABLE FOR DIALYSIS PATIEN TS. [id number] 15:31:00 Test Item Value Reference Range Interpretation Comments MAGNESIUM (BEAKER) (test code = 1.9 mg/dL 1.6-2.6 627) CBC W/PLT COUNT & AUTO [id number] 14:31:00 Test Item Value Reference Range Interpretation [...] PERCENT (BEAKER) (test code = 2801) SCREEN, [id number] 18:41:00 Test Item Value Reference Range Interpretation Comments TEST URINE (BEAKER) (test Negative code = 583) [id number] 18:24:00 Test Item Value Reference Range Interpretation Comments MAGNESIUM (BEAKER) (test code = 1.8 mg/dL 1.6-2.6 627) COMPREHENSIVE METABOLIC [id number] 18:24:00 Test Item Value Reference Range Interpretation [...] PATIEN TS. CBC W/PLT COUNT & AUTO [id number] 17:54:00 Test Item Value Reference Range Interpretation [...] = 2801) CBC W/PLT COUNT & AUTO [id number] 15:45:00 Test Item Value Reference Range Interpretation [...] 0-1 PERCENT (BEAKER) (test code = 2801) [id number] 14:16:00 Test Item Value Reference Range Interpretation Comments MAGNESIUM (BEAKER) (test code = 2.1 mg/dL 1.6-2.6 627) COMPREHENSIVE METABOLIC [id number] 14:16:00 Test Item Value Reference Range Interpretation [...]
[2022-08-08] MEDS ORDERED: MORPHINE 4 MG/ML SYR ONE ×2 (16:44→20:17)
[2022-08-08 16:57] LABS: Absolute Lymphocytes (CBC) 1.1 K/uL (0.7-4.9); Lymphocytes % 14.3 % (15.3-44.8); MCV 87.8 fL (80-100); MPV 8.7 fL (7.6-11.3); RBC Red Blood Cell Count 3.99 M/uL (3.86-4.86)
[2022-08-08 17:04] LABS: Albumin 3.7 g/dL (3.4-5.0); Bilirubin Total 0.3 mg/dL (0.2-1.0); Potassium 4.2 mmol/L (3.5-5.1); Protein, Total 8.2 g/dL (6.4-8.2)
[2022-08-08 17:30] LABS: Urine RBC >50 /HPF (None Seen)
--- NOTE | 2022-08-08 17:49 | RAD REPORT ---
EXAM DESCRIPTION: CT - Stone Protocol - 08/08/2022 5:29 pm CLINICAL HISTORY: Hematuria COMPARISON: June 2022 TECHNIQUE: Computed axial tomography of the abdomen pelvis was obtained without oral or IV contrast. Lack of IV and oral contrast limits evaluation of solid organs, appendix, bowel, and vessels. Campa l reformatted images were obtained and reviewed. All CT scans are performed using dose optimization technique as appropriate and may include automated exposure control or mA/KV adjustment according to patient size. FINDINGS: A renal calculus is not seen. An ureteral calculus is not noted. A bladder calculus is not present. A Marcos catheter is present within the bladder. Bladder contains increased density. Liver is borderline enlarged. Fatty infiltration present. Spleen, pancreas and adrenals appear grossly normal There is no evidence of diverticulitis. Small amount of free fluid within the pelvis. Spondylosis L5-S1 IMPRESSION: Negative for a genitourinary calculus Increased density within the bladder compatible with blood.
[2022-08-08 18:12] LABS: Protime INR 1.15
[2022-08-08] MEDS ORDERED: levoFLOXacin 250 MG TAB ONE (19:02)
--- NOTE | 2022-08-08 19:12 | EDPHYS ---
Physician Documentation [facility] Name: Suze Saab Age: 47 yrs Sex: Female : 1975 Arrival Date: 08/08/2022 Time: 13:51 Bed 14 Private MD: ED Physician Melvin Pierre HPI: 08/08 15:30 This 47 yrs old Female presents to ER via Wheelchair with complaints of Problem With cp Urinary Catheter. 15:30 The patient presents with urinary symptoms, hematuria, leaking of urinary catheter. cp 15:30 Onset: The symptoms/episode began/occurred today. Associated signs and symptoms: cp Pertinent positives: pain, Pertinent negatives: constipation, diarrhea, fever, vaginal bleeding. 15:30 Severity of symptoms: in the emergency department the symptoms are unchanged, despite cp home interventions. 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 - Social history:: Smoking status: Patient denies any tobacco usage or history of. ROS: 15:35 Constitutional: Negative for body aches, chills, fever, poor PO intake. cp 15:35 Eyes: Negative for injury, pain, redness, and discharge. cp 15:35 ENT: Negative for drainage from ear(s), ear pain, sore throat, difficulty swallowing, difficulty handling secretions. 15:35 Cardiovascular: Negative for chest pain, palpitations. 15:35 Respiratory: Negative for cough, shortness of breath, wheezing. 15:35 Abdomen/GI: Positive for abdominal pain, of the suprapubic area, Negative for vomiting, diarrhea, constipation. 15:35 Back: Negative for pain at rest, pain with movement. 15:35 : Positive for hematuria, Negative for vaginal bleeding. 15:35 Neuro: Negative for altered mental status, headache, weakness. 15:35 All other systems are negative. Exam: 15:40 Constitutional: The patient appears in no acute distress, alert, awake, non-toxic, well cp developed, well nourished, uncomfortable. 15:40 Head/Face: Normocephalic, atraumatic. cp 15:40 Eyes: Periorbital structures: appear normal, Conjunctiva: normal, no exudate, no injection, Sclera: no appreciated abnormality, Lids and lashes: appear normal, bilaterally. 15:40 ENT: External ear(s): are unremarkable, Nose: is normal, Mouth: Lips: moist, Oral mucosa: pink and intact, moist, Posterior pharynx: Airway: no evidence of obstruction, patent. 15:40 Chest/axilla: Inspection: normal. 15:40 Cardiovascular: Rate: normal, Rhythm: regular. 15:40 Respiratory: the patient does not display signs of respiratory distress, Respirations: normal, no use of accessory muscles, no retractions, labored breathing, is not present, Breath sounds: are clear throughout, no decreased breath sounds, no stridor, no wheezing. 15:40 Abdomen/GI: Inspection: abdomen appears normal, Bowel sounds: active, all quadrants, Palpation: soft, in all quadrants, severe abdominal tenderness, in the suprapubic area, rebound tenderness, is not appreciated, voluntary guarding, is elicited in the suprapubic area. 15:40 Back: CVA tenderness, is absent. 15:40 Neuro: Orientation: to person, place \\T\\ time. Mentation: is normal, Motor: moves all fours, strength is normal. Vital Signs: 14:10 BP 126 / 86; Pulse 99; Resp 17; Temp 98.4; Pulse Ox 99% ; Weight 92.99 kg; Height 5 ft. ll1 4 in. (162.56 cm); Pain 7/10; 16:58 BP 163 / 70; Pulse 62; Resp 16; Pulse Ox 94% on R/A; tp1 17:55 BP 129 / 63; Pulse 96; Resp 16; Pulse Ox 96% on R/A; tp1 14:10 Body Mass Index 35.19 (92.99 kg, 162.56 cm) ll1 MDM: 15:20 Patient medically screened. cp 16:00 Differential diagnosis: urinary tract infection, kidney stone, ureter stone, sepsis. cp 19:10 Data reviewed: vital signs, nurses notes, lab test result(s), radiologic studies, CT cp scan. 19:10 Counseling: I had a detailed discussion with the patient and/or guardian regarding: the cp historical points, exam findings, and any diagnostic results supporting the discharge/admit diagnosis, lab results, radiology results, the need for outpatient follow up, for definitive care, a urologist, to return to the emergency department if symptoms worsen or persist or if there are any questions or concerns that arise at home. Response to treatment: Pain improved. Will start on oral antibiotic and discharge to home to f/u with urology. 08/08 14:13 Order name: COVID-19 SARS RT PCR (Document "Date of Onset" if Symptomatic); Complete cp Time: 16:25 08/08 16:25 Interpretation: Reviewed. cp 08/08 15:34 Order name: CBC with Diff; Complete Time: 17:56 cp 08/08 17:56 Interpretation: Normal except: HGB 11.9; HCT 35.0; KITA% 75.5; LYM% 14.3. cp 08/08 15:34 Order name: CMP; Complete Time: 17:05 cp 08/08 17:05 Interpretation: Normal except: NA 130; CL 97; GLUC 129; CRE 1.34; GFR 50; GLOB 4.5; A/G cp 0.8. 08/08 15:34 Order name: Lipase; Complete Time: 17:05 cp 08/08 15:34 Order name: Urine Microscopic Only; Complete Time: 17:56 cp 08/08 17:56 Interpretation: Abnormal: UWBC >50; URBC >50. cp 08/08 16:26 Order name: PT-INR; Complete Time: 18:22 cp 08/08 18:22 Interpretation: Reviewed. cp 08/08 15:34 Order name: IV Saline Lock; Complete Time: 16:37 cp 08/08 16:26 Order name: Ptt, Activated; Complete Time: 18:22 cp 08/08 17:06 Order name: Urine Culture cp 08/08 17:06 Order name: CT Stone Protocol; Complete Time: 17:56 cp 08/08 18:04 Interpretation: Report reviewed. cp 08/08 15:34 Order name: Labs collected and sent; Complete Time: 16:37 cp 08/08 15:34 Order name: Urine Dipstick-Ancillary (obtain specimen); Complete Time: 16:58 cp 08/08 15:34 Order name: Urine Test (obtain specimen); Complete Time: 16:58 cp Administered Medications: 16:50 Drug: morphine 4 mg Route: IVP; Infused Over: 4 mins; Site: left forearm; tp1 17:20 Follow up: Response: Pain is decreased tp1 19:03 Drug: LevaQUIN (levofloxacin) 500 mg Route: PO; tp1 19:51 Follow up: Response: No adverse reaction tp1 20:15 CANCELLED (Physician Discretion): morphine 4 mg IVP once over 4 mins cp 20:22 Drug: morphine 8 mg Route: IM; Site: left deltoid; tp1 20:22 Follow up: Response: Medication administered at discharge. tp1 Disposition: 08/09 14:15 Co-signature as Attending Physician, Melvin Pierre MD I agree with the assessment and kdr plan of care. Disposition Summary: 08/08/22 19:11 Discharge Ordered Location: Home cp Problem: an ongoing problem cp Symptoms: have improved cp Condition: Stable cp Diagnosis - Hematuria, unspecified cp - UTI/ Urinary tract infection, site not specified cp Followup: cp - With: Private Physician - When: 2 - 3 days - Reason: Recheck today's complaints Discharge Instructions: - Discharge Summary Sheet cp - Hematuria, Adult cp - Urinary Tract Infection, Adult cp Forms: - Medication Reconciliation Form cp - Thank You Letter cp - Antibiotic Education cp - Prescription Opioid Use cp Prescriptions: - levofloxacin 500 mg Oral Tablet - take 1 tablet by ORAL route once daily for 7 days start antibiotic evening of cp 08/09/2022; 6 tablet; Refills: 0, Product Selection Permitted - Tylenol-Codeine #3 300 mg-30 mg Oral - take 2 tablet by ORAL route every 8-10 hours; 12 tablet; Refills: 0, Product cp Selection Permitted Signatures: Dispatcher [employer] [facility] Melvin Pierre MD MD [facility] Oseas Bucio PA PA cp Lkaeisha Neal RN RN ll1 Adrianna Powell RN RN tp1 Corrections: (The following items were deleted from the chart) 08/08 20:15 20:14 morphine 4 mg IVP once over 4 mins ordered. cp cp 08/09 18:54 08/08 15:30 Onset: The symptoms/episode began/occurred today, cp cp 08/09 18:54 08/08 15:30 Associated signs and symptoms: Pertinent positives: pain, cp cp
--- NOTE | 2022-08-08 19:12 | ER ---
Nurse's Notes [facility] Name: Suze Saab Age: 47 yrs Sex: Female : 1975 Arrival Date: 08/08/2022 Time: 13:51 Bed 14 Private MD: Diagnosis: Hematuria, unspecified;UTI/ Urinary tract infection, site not specified Presentation: 08/08 14:10 Chief complaint: Patient states: Hematuria for 1 month. Perez stopped flowing this ll1 morning and had clots in it. 2. Cough/congestion began yesterday, Had positive covid test at home today. Coronavirus screen: Vaccine status: Patient reports receiving the 2nd dose of the covid vaccine. Client denies travel out of the [place] in the last 14 days. congestion, cough unrelated to allergies, fatigue. Ebola Screen: Patient denies travel to an Ebola-affected area in the 21 days before illness onset. Initial Sepsis Screen: Does the patient meet any 2 criteria? HR > 90 bpm. No. Patient's initial sepsis screen is negative. Does the patient have a suspected source of infection? Yes: Dysuria/Frequency/Urgency/UTI. Risk Assessment: Do you want to hurt yourself or someone else? Patient reports no desire to harm self or others. Onset of symptoms was August 07, 2022. 14:10 Method Of Arrival: Wheelchair ll1 14:10 Acuity: ANTON 3 ll1 Triage Assessment: 14:13 General: Appears uncomfortable, Behavior is cooperative, appropriate for age. Pain: ll1 Complains of pain in pelvis Quality of pain is described as aching. Respiratory: Reports cough that is. : Reports inability to void, perez not flowing right. 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 - Social history:: Smoking status: Patient denies any tobacco usage or history of. Screenin:54 Abuse screen: Denies threats or abuse. Denies injuries from another. Nutritional tp1 screening: No deficits noted. Tuberculosis screening: No symptoms or risk factors identified. Fall Risk No fall in past 12 months (0 pts). No secondary diagnosis (0 pts). IV access (20 points). Ambulatory Aid- None/Bed Rest/Nurse Assist (0 pts). Gait- Weak (10 pts.). Mental Status- Oriented to own ability (0 pts). Total Gunn Fall Scale indicates Low Risk Score (25-44 pts). Fall prevention measures have been instituted. Side Rails Up X 2 Placed close to Nursing Station Frequent Obs/Assesments occuring As available Patient and Family Educated on Fall Prevention Program and strategies. Assessment: 16:20 General: Appears in no apparent distress. uncomfortable, Behavior is cooperative, tp1 anxious. Pain: Complains of pain in pelvis Pain does not radiate. Pain currently is 10 out of 10 on a pain scale. Quality of pain is described as pressure, Is continuous. Neuro: Level of Consciousness is awake, alert, obeys commands. Cardiovascular: Patient's skin is warm and dry. Respiratory: Airway is patent Respiratory effort is even, unlabored. GI: No signs and/or symptoms were reported involving the gastrointestinal system. : Perez in place to gravity drainage urine appears dark red. EENT: No signs and/or symptoms were reported regarding the EENT system. Derm: Skin is pink, warm \\T\\ dry. Musculoskeletal: Circulation, motion, and sensation intact. 16:50 Reassessment: irrigated Perez with 500 mL NS. voided 500 ml dark red urine. tp1 17:54 Reassessment: Patient appears in no apparent distress at this time. Patient and/or tp1 family updated on plan of care and expected duration. Pain level reassessed. Patient is alert, oriented x 3, equal unlabored respirations, skin warm/dry/pink. states pain was gone but is now coming back. rates pelvic pain 5/10. 19:03 Reassessment: Patient appears in no apparent distress at this time. No changes from tp1 previously documented assessment. Patient is alert, oriented x 3, equal unlabored respirations, skin warm/dry/pink. 19:50 Reassessment: discharge pending cap for 3 way perez. tp1 Vital Signs: 14:10 BP 126 / 86; Pulse 99; Resp 17; Temp 98.4; Pulse Ox 99% ; Weight 92.99 kg; Height 5 ft. ll1 4 in. (162.56 cm); Pain 7/10; 16:58 BP 163 / 70; Pulse 62; Resp 16; Pulse Ox 94% on R/A; tp1 17:55 BP 129 / 63; Pulse 96; Resp 16; Pulse Ox 96% on R/A; tp1 14:10 Body Mass Index 35.19 (92.99 kg, 162.56 cm) ll1 ED Course: 13:51 Patient arrived in ED. as 13:57 Oseas Bucio PA is PHCP. cp 13:57 Melvin Pierre MD is Attending Physician. cp 14:13 Triage completed. ll1 14:14 Arm band placed on. ll1 14:17 COVID-19 SARS RT PCR (Document "Date of Onset" if Symptomatic) Sent. ll1 16:20 Patient has correct armband on for positive identification. Placed in gown. Bed in low tp1 position. Call light in reach. 16:21 Adrianna Powell RN is Primary Nurse. tp1 16:37 Inserted saline lock: 22 gauge in left forearm, using aseptic technique. Blood tp1 collected. 17:31 CT Stone Protocol In Process Unspecified. EDMS 20:11 No provider procedures requiring assistance completed. intact, bleeding controlled, No tp1 redness/swelling at site. Pressure dressing applied. Administered Medications: 16:50 Drug: morphine 4 mg Route: IVP; Infused Over: 4 mins; Site: left forearm; tp1 17:20 Follow up: Response: Pain is decreased tp1 19:03 Drug: LevaQUIN (levofloxacin) 500 mg Route: PO; tp1 19:51 Follow up: Response: No adverse reaction tp1 20:15 CANCELLED (Physician Discretion): morphine 4 mg IVP once over 4 mins cp 20:22 Drug: morphine 8 mg Route: IM; Site: left deltoid; tp1 20:22 Follow up: Response: Medication administered at discharge. tp1 Medication: 20:10 VIS not applicable for this client. tp1 Outcome: 19:11 Discharge ordered by . cp 20:11 Discharged to home ambulatory. tp1 20:11 Condition: good 20:11 Discharge instructions given to patient, Instructed on discharge instructions, follow up and referral plans. medication usage, Demonstrated understanding of instructions, follow-up care, medications, Prescriptions given X 2. 20:22 Patient left the ED. tp1 Addendum: 08/12/2022 08:56 Addendum: Culture Results: Positive urine culture. No further action required. Bacteria e b sensitive to prescribed antibiotic. Signatures: Dispatcher [employer] Anna Saldana Corey, PA PA cp Botello, Elizabeth eb Lewis, Lynsay RN RN ll1 Adrianna Powell RN RN tp1
[2022-08-08 21:08] VITALS: TEMP 98.4
[2022-08-08 21:11] VITALS: BP 129/63; O2SAT 96
== END 2022-08-08 20:22 | disposition home or self-care (01) ==
LOC: ER 13:50
DX: N39.0 Urinary tract infection, site not specified (principal); Z20.822 Contact with and (suspected) exposure to COVID-19; Z88.1 Allergy status to other antibiotic agents
CPT/HCPCS: 87088; 85025; 87086; 36415; 85610; 85730; 87077; 87186; 81015; 83690; 80053; 76377; 74176; 96372; 96374; 99284; U0003